=== PATIENT | female | born 1995 | race Caucasian/White ===

== ENCOUNTER 2018-08-17 23:17 | Observation (INO) | payer BC ==
[2018-08-17] MEDS ORDERED: Pantoprazole 40 MG Vial IVPUSH ONE (23:30)
[2018-08-17] MEDS ORDERED: Ketorolac 30 MG/ML SDV IVPUSH ONE (23:30)
[2018-08-17] MEDS ORDERED: Sodium Chloride 0.9% 1,000 ML IV ONE (23:30)
[2018-08-17] MEDS ORDERED: Ondansetron 4 MG/2 ML SDV IVPUSH ONE (23:30)
--- NOTE | 2018-08-17 23:33 | EDM.PDOC ---
ED HPI GENERAL MEDICAL PROBLEM - General Chief Complaint: Abdominal Pain Stated Complaint: ABD PAIN Time Seen by Provider: 08/17/18 23:26 - History of Present Illness INITIAL COMMENTS - FREE TEXT/NARRATIVE: HISTORY AND PHYSICAL: History of present illness: Patient is a 23-year-old female presents with concern of upper abdominal pain came on somewhat acutely tonight she had similar episodes in the past and has had now for definitive diagnosis to date she states her gallbladder was imaged prior and was reported to be negative she's had no vomiting she had mild nausea she denies urinary tract symptoms denies fever chills chest pain shortness of breath or other concerns been no trauma Review of systems: As per history of present illness and below otherwise all systems reviewed and negative. Past medical history: As per history of present illness and as reviewed below otherwise noncontributory. Surgical history: As per history of present illness and as reviewed below otherwise noncontributory. Social history: No reported history of drug or alcohol abuse. Family history: As per history of present illness and as reviewed below otherwise noncontributory. Physical exam: HEENT: Atraumatic, normocephalic, pupils reactive, negative for conjunctival pallor or scleral icterus, mucous membranes moist, throat clear, neck supple, nontender, trachea midline. Lungs: Clear to auscultation, breath sounds equal bilaterally, chest nontender. Heart: S1S2, regular, negative for clicks, rubs, or JVD. Abdomen: Soft, nondistended, no localized tenderness no rebound no guarding. Negative for masses or hepatosplenomegaly. Negative for costovertebral tenderness. Pelvis: Stable nontender. Genitourinary: Deferred. Rectal: Deferred. Extremities: Atraumatic, negative for cords or calf pain. Neurovascular unremarkable. Neuro: Awake, alert, oriented. Cranial nerves II through XII unremarkable. Cerebellum unremarkable. Motor and sensory unremarkable throughout. Exam nonfocal. Diagnostics: CBC CMP lipase UA hCG CT abdomen and pelvis Therapeutics: Saline 1 L bolus Protonix 80 mg IV Toradol 30 mg IV Zofran 4 mg IV Impression: #1 abdominal pain Definitive disposition and diagnosis as appropriate pending reevaluation and review of above. Abdominal Pain Score (Numeric/FACES): 9 - Related Data Allergies Allergy/AdvReac Type Severity Reaction Status Date / Time prochlorperazine Allergy Anxiety Verified 08/17/18 23:25 [From Compazine] Home Meds: Home Meds Levothyroxine [Synthroid] 100 mcg PO ACBREAKFAST 08/17/18 [History] ED ROS GENERAL - Review of Systems Review Of Systems: ROS reveals no pertinent complaints other than HPI. ED EXAM, GENERAL - Physical Exam Exam: See Below (See dictation) Course - Vital Signs Last Recorded V/S: Last Vital Signs Temp 36.8 C 08/17/18 23:26 Pulse 81 08/17/18 23:26 Resp 22 H 08/17/18 23:26 BP 137/90 08/17/18 23:26 Pulse Ox 99 08/17/18 23:26 - Orders/Labs/Meds Orders: Active Orders 24 hr Category Date Time Status Abdomen Pelvis wo Cont [CT] Stat Exams 08/17/18 23:30 Taken CULTURE URINE [RM] Stat Lab 08/17/18 23:49 Received Labs: Laboratory Tests 08/17/18 08/17/18 08/17/18 Range/Units 00:00 00:00 00:00 WBC 13.09 H (4.0-11.0) K/uL RBC 4.40 (4.30-5.90) M/uL Hgb 12.8 (12.0-16.0) g/dL Hct 37.7 (36.0-46.0) % MCV 85.7 (80.0-98.0) fL MCH 29.1 (27.0-32.0) pg MCHC 34.0 (31.0-37.0) g/dL RDW Std Deviation 42.3 (28.0-62.0) fl RDW Coeff of [place]oney 14 (11.0-15.0) % Plt Count 287 (150-400) K/uL MPV 10.50 (7.40-12.00) fL Neut % (Auto) 66.3 (48.0-80.0) % Lymph % (Auto) 26.0 (16.0-40.0) % [place] % (Auto) 6.7 (0.0-15.0) % Eos % (Auto) 0.8 (0.0-7.0) % Baso % (Auto) 0.2 (0.0-1.5) % Neut # (Auto) 8.7 H (1.4-5.7) K/uL Lymph # (Auto) 3.4 H (0.6-2.4) K/uL [place] # (Auto) 0.9 H (0.0-0.8) K/uL Eos # (Auto) 0.1 (0.0-0.7) K/uL Baso # (Auto) 0.0 (0.0-0.1) K/uL Nucleated RBC % 0.0 /100WBC Nucleated RBCs # 0 K/uL INR 0.96 Sodium (136-145) mmol/L Potassium (3.5-5.1) mmol/L Chloride (98-107) mmol/L Carbon Dioxide (21.0-32.0) mmol/L BUN (7.0-18.0) mg/dL Creatinine (0.6-1.0) mg/dL Est Cr Clr Drug Dosing mL/min Estimated GFR (MDRD) ml/min Glucose (74-106) mg/dL Calcium (8.5-10.1) mg/dL Total Bilirubin (0.2-1.0) mg/dL AST (15-37) IU/L ALT (14-63) IU/L Alkaline Phosphatase (46-116) U/L Total Protein (6.4-8.2) g/dL Albumin (3.4-5.0) g/dL Globulin (2.6-4.0) g/dL Albumin/Globulin Ratio (0.9-1.6) Amylase (25-115) U/L Lipase (73-393) U/L HCG, Qual NEGATIVE (NEG) Urine Color Urine Appearance Urine pH (5.0-8.0) Ur Specific [place] (1.001-1.035) Urine Protein (NEGATIVE) mg/dL Urine Glucose (UA) (NEGATIVE) mg/dL Urine Ketones (NEGATIVE) mg/dL Urine Occult Blood (NEGATIVE) Urine Nitrite (NEGATIVE) Urine Bilirubin (NEGATIVE) Urine Urobilinogen (<2.0) EU/dL Ur Leukocyte Esterase (NEGATIVE) Urine RBC (0-2/HPF) Urine WBC (0-5/HPF) Ur Epithelial Cells (NONE-FEW) Amorphous Sediment (NEGATIVE) Urine Bacteria (NEGATIVE) 08/17/18 08/17/18 Range/Units 23:29 23:49 WBC (4.0-11.0) K/uL RBC (4.30-5.90) M/uL Hgb (12.0-16.0) g/dL Hct (36.0-46.0) % MCV (80.0-98.0) fL MCH (27.0-32.0) pg MCHC (31.0-37.0) g/dL RDW Std Deviation (28.0-62.0) fl RDW Coeff of [place] (11.0-15.0) % Plt Count (150-400) K/uL MPV (7.40-12.00) fL Neut % (Auto) (48.0-80.0) % Lymph % (Auto) (16.0-40.0) % Ellis % (Auto) (0.0-15.0) % Eos % (Auto) (0.0-7.0) % Baso % (Auto) (0.0-1.5) % Neut # (Auto) (1.4-5.7) K/uL Lymph # (Auto) (0.6-2.4) K/uL Ellis # (Auto) (0.0-0.8) K/uL Eos # (Auto) (0.0-0.7) K/uL Baso # (Auto) (0.0-0.1) K/uL Nucleated RBC % /100WBC Nucleated RBCs # K/uL INR Sodium 140 (136-145) mmol/L Potassium 3.8 (3.5-5.1) mmol/L Chloride 104 (98-107) mmol/L Carbon Dioxide 27.5 (21.0-32.0) mmol/L BUN 13 (7.0-18.0) mg/dL Creatinine 0.7 (0.6-1.0) mg/dL Est Cr Clr Drug Dosing 98.86 mL/min Estimated GFR (MDRD) > 60.0 ml/min Glucose 99 (74-106) mg/dL Calcium 9.4 (8.5-10.1) mg/dL Total Bilirubin 0.2 (0.2-1.0) mg/dL AST 16 (15-37) IU/L ALT 23 (14-63) IU/L Alkaline Phosphatase 111 (46-116) U/L Total Protein 7.7 (6.4-8.2) g/dL Albumin 3.6 (3.4-5.0) g/dL Globulin 4.1 H (2.6-4.0) g/dL Albumin/Globulin Ratio 0.9 (0.9-1.6) Amylase 42 (25-115) U/L Lipase 85 (73-393) U/L HCG, Qual (NEG) Urine Color YELLOW Urine Appearance SLT CLOUDY Urine pH 6.5 (5.0-8.0) Ur Specific [place] 1.020 (1.001-1.035) Urine Protein NEGATIVE (NEGATIVE) mg/dL Urine Glucose (UA) NEGATIVE (NEGATIVE) mg/dL Urine Ketones NEGATIVE (NEGATIVE) mg/dL Urine Occult Blood NEGATIVE (NEGATIVE) Urine Nitrite NEGATIVE (NEGATIVE) Urine Bilirubin NEGATIVE (NEGATIVE) Urine Urobilinogen 0.2 (<2.0) EU/dL Ur Leukocyte Esterase SMALL H (NEGATIVE) Urine RBC 0-2 (0-2/HPF) Urine WBC 9-12 (0-5/HPF) Ur Epithelial Cells MODERATE (NONE-FEW) Amorphous Sediment HEAVY (NEGATIVE) Urine Bacteria FEW (NEGATIVE) Meds: Medications Discontinued Medications Generic Name Dose Route Start Last Admin Trade Name Gavinq PRN Reason Stop Dose Admin Sodium Chloride 1,000 mls @ 999 mls/hr 08/17/18 23:30 08/17/18 23:52 Normal Saline IV 08/18/18 00:30 999 mls/hr STAT ONE Administration Sodium Chloride Confirm 08/17/18 23:39 08/17/18 23:56 Normal Saline Administered 08/17/18 23:40 20 mls/hr Dose Administration 20 mls @ as directed .ROUTE .STK-MED ONE Ketorolac Tromethamine 30 mg 08/17/18 23:30 08/18/18 00:53 Toradol IVPUSH 08/17/18 23:31 30 mg ONETIME ONE Administration Ondansetron HCl 4 mg 08/17/18 23:30 08/17/18 23:52 Zofran IVPUSH 08/17/18 23:31 4 mg ONETIME ONE Administration Pantoprazole Sodium 80 mg 08/17/18 23:30 08/17/18 23:54 Protonix Iv IVPUSH 08/17/18 23:31 80 mg .BOLUS ONE Administration Departure - Departure Time of Disposition: 01:04 Disposition: Home, Self-Care 01 Clinical Impression: Abdominal pain, UTI (urinary tract infection) - Discharge Information Referrals: PCP,None [Primary Care Provider] - Forms: ED Department Discharge Additional Instructions: The following information is given to patients seen in the emergency department who are being discharged to home. This information is to outline your options for follow-up care. We provide all patients seen in our emergency department with a follow-up referral. The need for follow-up, as well as the timing and circumstances, are variable depending upon the specifics of your emergency department visit. If you don't have a primary care physician on staff, we will provide you with a referral. We always advise you to contact your personal physician following an emergency department visit to inform them of the circumstance of the visit and for follow-up with them and/or the need for any referrals to a consulting specialist. The emergency department will also refer you to a specialist when appropriate. This referral assures that you have the opportunity for followup care with a specialist. All of these measure are taken in an effort to provide you with optimal care, which includes your followup. Under all circumstances we always encourage you to contact your private physician who remains a resource for coordinating your care. When calling for followup care, please make the office aware that this follow-up is from your recent emergency room visit. If for any reason you are refused follow-up, please contact the [facility] emergency department at and asked to speak to the emergency department charge nurse. Cipro as prescribed push fluids clear liquids 24 hours follow private medical doctor return as needed as discussed[] - My Orders Last 24 Hours: My Active Orders 08/17/18 23:30 Abdomen Pelvis wo Cont [CT] Stat 08/17/18 23:49 CULTURE URINE [RM] Stat - Assessment/Plan Last 24 Hours: My Active Orders 08/17/18 23:30 Abdomen Pelvis wo Cont [CT] Stat 08/17/18 23:49 CULTURE URINE [RM] Stat
[2018-08-17] MEDS ORDERED: Sodium Chloride 0.9% 20 ML ONE (23:39)
[2018-08-18 00:35] LABS: CHLORIDE,CL 104 mmol/L (98-107); SODIUM,NA 140 mmol/L (136-145)
--- NOTE | 2018-08-18 01:11 | CT ---
INDICATION: Abdominal pain TECHNIQUE: CT abdomen and pelvis without contrast. COMPARISON: None. FINDINGS: Lower chest: Unremarkable. Liver: Normal in size and attenuation. No masses. Gallbladder and bile ducts: No stones or inflammation. No biliary dilatation. Pancreas: Unremarkable. No mass or inflammation. Spleen: Normal in size. No masses. Adrenal glands: Normal in size. No nodules. Kidneys: Normal in size. No masses, stones, or hydronephrosis. GI tract: Unremarkable. Normal in caliber. No sign of mass or inflammation. The appendix is mildly dilated measuring up to 8 mm. Minimal periappendiceal inflammation may also be present. Vasculature: Unremarkable. Lymph nodes: No lymphadenopathy. Abdominal wall/Omentum/Peritoneum: Unremarkable. No sign of mass or infiltration. No free air or significant free fluid. Pelvis: Unremarkable. No pelvic masses. Bones: Unremarkable for age. IMPRESSION: Suspected mild acute or early appendicitis without complication. No other finding to explain abdominal pain. Please note that all CT scans at this facility use dose modulation, iterative reconstruction, and/or weight-based dosing when appropriate to reduce radiation dose to as low as reasonably achievable. Dictated by Hany Jules MD @ Aug 18 2018 12:58AM Signed by Dr. Hany Jules @ Aug 18 2018 1:10AM
[2018-08-18] MEDS ORDERED: cefTRIAXone 1 GM in Premix Bag 1 BAG IV ONE (01:46)
[2018-08-18] MEDS ORDERED: Piperacillin/Tazobactam 3.375 GM in Sodium Chloride 0.9% 50 ML IV ONE (01:50)
[2018-08-18] MEDS ORDERED: Sodium Chloride 0.9% 1,000 ML IV SCH (02:00)
[2018-08-18] MEDS ORDERED: Ondansetron 4 MG/2 ML SDV IVPUSH PRN (02:19)
[2018-08-18] MEDS: Lactated Ringers 1,000 ML IV SCH ×3 (02:30→19:53)
[2018-08-18] MEDS: HYDROmorphone 1 MG/ML Syringe IVPUSH PRN ×4 (02:50→12:19)
[2018-08-18] MEDS ORDERED: Piperacillin/Tazobactam 3.375 GM in Sodium Chloride 0.9% 50 ML IV SCH ×2 (10:00→17:00)
[2018-08-18] MEDS ORDERED: Bupivacaine 0.5% 30 ML SDV ONE (14:34)
--- NOTE | 2018-08-18 14:44 | PCM.HP ---
H&P History of Present Illness - General Date of Service: 08/18/18 Admit Problem/Dx: Admission Diagnosis/Problem Admission Diagnosis/Problem Abdominal pain Source of Information: Patient History Limitations: Reports: No Limitations - History of Present Illness Initial Comments - Free Text/Narative: Patient is a 23 year old female who presented to the ER early this morning with upper abdominal pain. She states the pain started last evening and persistently got worse. She has had similar episodes of some abdominal pain in the past but work up has been negative. This pain did not improve over time. It was associated with mild nausea. Denies fever, chills, shortness or breath or chest pain. She denies dysuria or frequency. Her UA showed a small amount of leukocyte esterase. Her WBC was minimally elevated at 13K. CT abdomen pelvis showed a minimally dilated appendix with possible surrounding infiltrate. When I saw the patient, she was complaining of some malaise and still some upper abominal pain. Her abdominal exam was fairly benign with no tenderness in the RLQ. After discussion the options, we decided to admit her to the floor. She would be NPO, IVF with IV zosyn. I came to check on the patient several hours later and she still is complaining or malaise, but now the abdominal pain is back with increased pain in the RLQ. A repeat CBC showed a WBC of 10K but with an increased neutrophil %. Abdominal Pain Score (Numeric/FACES): 8 - Related Data Allergies/Adverse Reactions: Allergies Allergy/AdvReac Type Severity Reaction Status Date / Time prochlorperazine Allergy Anxiety Verified 08/17/18 23:25 [From Compazine] Home Medications: Home Meds Levothyroxine [Synthroid] 100 mcg PO ACBREAKFAST 08/17/18 [History] Past Medical History HEENT History: Reports: Impaired Vision, Other (See Below) Other HEENT History: Wears glasses. Cardiovascular History: Reports: None Respiratory History: Reports: None Gastrointestinal History: Reports: None Genitourinary History: Reports: None BASKETBALL PLAYER History: Reports: None Musculoskeletal History: Reports: None Neurological History: Reports: None Psychiatric History: Reports: None Endocrine/Metabolic History: Reports: Hypothyroidism Hematologic History: Reports: None Immunologic History: Reports: None Oncologic (Cancer) History: Reports: None Dermatologic History: Reports: None - Infectious Disease History Infectious Disease History: Reports: Chicken Pox - Past Surgical History Head Surgeries/Procedures: Reports: None HEENT Surgical History: Reports: Tonsillectomy Cardiovascular Surgical History: Reports: None Endocrine Surgical History: Reports: None Social & Family History - Family History Family Medical History: Noncontributory - Tobacco Use Smoking Status *Q: Never Smoker Second Hand Smoke Exposure: No - Caffeine Use Caffeine Use: Reports: Coffee, Soda - Recreational Drug Use Recreational Drug Use: No H&P Review of Systems - Review of Systems: Review Of Systems: ROS reveals no pertinent complaints other than HPI. Exam - Exam Exam: See Below - Vital Signs Vital Signs: Last Vital Signs Temp 36.4 C 08/18/18 11:08 Pulse 68 08/18/18 11:08 Resp 16 08/18/18 11:08 BP 107/56 L 08/18/18 11:08 Pulse Ox 98 08/18/18 11:08 Weight: 102.512 kg - Exam General: Alert, Oriented, Mild Distress HEENT: Conjunctiva Clear, Mucosa Moist & [place], Posterior Pharynx Clear Neck: Trachea Midline Lungs: Clear to Auscultation, Normal Respiratory Effort Cardiovascular: Regular Rate, Regular Rhythm GI/Abdominal Exam: Soft, No Distention, No Mass, Guarding (RLQ), Tender (RLQ) - Patient Data Lab Results Last 24 hrs: Laboratory Results - last 24 hr 08/17/18 08/17/18 08/17/18 Range/Units 00:00 00:00 00:00 WBC 13.09 H (4.0-11.0) K/uL RBC 4.40 (4.30-5.90) M/uL Hgb 12.8 (12.0-16.0) g/dL Hct 37.7 (36.0-46.0) % MCV 85.7 (80.0-98.0) fL MCH 29.1 (27.0-32.0) pg MCHC 34.0 (31.0-37.0) g/dL RDW Std Deviation 42.3 (28.0-62.0) fl RDW Coeff of Roney 14 (11.0-15.0) % Plt Count 287 (150-400) K/uL MPV 10.50 (7.40-12.00) fL Neut % (Auto) 66.3 (48.0-80.0) % Lymph % (Auto) 26.0 (16.0-40.0) % [place] % (Auto) 6.7 (0.0-15.0) % Eos % (Auto) 0.8 (0.0-7.0) % Baso % (Auto) 0.2 (0.0-1.5) % Neut # (Auto) 8.7 H (1.4-5.7) K/uL Lymph # (Auto) 3.4 H (0.6-2.4) K/uL [place] # (Auto) 0.9 H (0.0-0.8) K/uL Eos # (Auto) 0.1 (0.0-0.7) K/uL Baso # (Auto) 0.0 (0.0-0.1) K/uL Nucleated RBC % 0.0 /100WBC Nucleated RBCs # 0 K/uL INR 0.96 Sodium (136-145) mmol/L Potassium (3.5-5.1) mmol/L Chloride (98-107) mmol/L Carbon Dioxide (21.0-32.0) mmol/L BUN (7.0-18.0) mg/dL Creatinine (0.6-1.0) mg/dL Est Cr Clr Drug Dosing mL/min Estimated GFR (MDRD) ml/min Glucose (74-106) mg/dL Calcium (8.5-10.1) mg/dL Total Bilirubin (0.2-1.0) mg/dL AST (15-37) IU/L ALT (14-63) IU/L Alkaline Phosphatase (46-116) U/L Total Protein (6.4-8.2) g/dL Albumin (3.4-5.0) g/dL Globulin (2.6-4.0) g/dL Albumin/Globulin Ratio (0.9-1.6) Amylase (25-115) U/L Lipase (73-393) U/L HCG, Qual NEGATIVE (NEG) Urine Color Urine Appearance Urine pH (5.0-8.0) Ur Specific [place] (1.001-1.035) Urine Protein (NEGATIVE) mg/dL Urine Glucose (UA) (NEGATIVE) mg/dL Urine Ketones (NEGATIVE) mg/dL Urine Occult Blood (NEGATIVE) Urine Nitrite (NEGATIVE) Urine Bilirubin (NEGATIVE) Urine Urobilinogen (<2.0) EU/dL Ur Leukocyte Esterase (NEGATIVE) Urine RBC (0-2/HPF) Urine WBC (0-5/HPF) Ur Epithelial Cells (NONE-FEW) Amorphous Sediment (NEGATIVE) Urine Bacteria (NEGATIVE) 08/17/18 08/17/18 08/18/18 Range/Units 23:29 23:49 08:16 WBC 10.49 (4.0-11.0) K/uL RBC 3.96 L (4.30-5.90) M/uL Hgb 11.1 L (12.0-16.0) g/dL Hct 33.9 L (36.0-46.0) % MCV 85.6 (80.0-98.0) fL MCH 28.0 (27.0-32.0) pg MCHC 32.7 (31.0-37.0) g/dL RDW Std Deviation 42.2 (28.0-62.0) fl RDW Coeff of Roney 14 (11.0-15.0) % Plt Count 252 (150-400) K/uL MPV 10.40 (7.40-12.00) fL Neut % (Auto) 69.1 (48.0-80.0) % Lymph % (Auto) 24.0 (16.0-40.0) % [place] % (Auto) 6.3 (0.0-15.0) % Eos % (Auto) 0.5 (0.0-7.0) % Baso % (Auto) 0.1 (0.0-1.5) % Neut # (Auto) 7.3 H (1.4-5.7) K/uL Lymph # (Auto) 2.5 H (0.6-2.4) K/uL [place] # (Auto) 0.7 (0.0-0.8) K/uL Eos # (Auto) 0.1 (0.0-0.7) K/uL Baso # (Auto) 0.0 (0.0-0.1) K/uL Nucleated RBC % 0.0 /100WBC Nucleated RBCs # 0 K/uL INR Sodium 140 (136-145) mmol/L Potassium 3.8 (3.5-5.1) mmol/L Chloride 104 (98-107) mmol/L Carbon Dioxide 27.5 (21.0-32.0) mmol/L BUN 13 (7.0-18.0) mg/dL Creatinine 0.7 (0.6-1.0) mg/dL Est Cr Clr Drug Dosing 98.86 mL/min Estimated GFR (MDRD) > 60.0 ml/min Glucose 99 (74-106) mg/dL Calcium 9.4 (8.5-10.1) mg/dL Total Bilirubin 0.2 (0.2-1.0) mg/dL AST 16 (15-37) IU/L ALT 23 (14-63) IU/L Alkaline Phosphatase 111 (46-116) U/L Total Protein 7.7 (6.4-8.2) g/dL Albumin 3.6 (3.4-5.0) g/dL Globulin 4.1 H (2.6-4.0) g/dL Albumin/Globulin Ratio 0.9 (0.9-1.6) Amylase 42 (25-115) U/L Lipase 85 (73-393) U/L HCG, Qual (NEG) Urine Color YELLOW Urine Appearance SLT CLOUDY Urine pH 6.5 (5.0-8.0) Ur Specific [place] 1.020 (1.001-1.035) Urine Protein NEGATIVE (NEGATIVE) mg/dL Urine Glucose (UA) NEGATIVE (NEGATIVE) mg/dL Urine Ketones NEGATIVE (NEGATIVE) mg/dL Urine Occult Blood NEGATIVE (NEGATIVE) Urine Nitrite NEGATIVE (NEGATIVE) Urine Bilirubin NEGATIVE (NEGATIVE) Urine Urobilinogen 0.2 (<2.0) EU/dL Ur Leukocyte Esterase SMALL H (NEGATIVE) Urine RBC 0-2 (0-2/HPF) Urine WBC 9-12 (0-5/HPF) Ur Epithelial Cells MODERATE (NONE-FEW) Amorphous Sediment HEAVY (NEGATIVE) Urine Bacteria FEW (NEGATIVE) Result Diagrams: 08/18/18 08:16 08/17/18 23:29 - Problem List (1) Appendicitis SNOMED Code(s): 16691205 ICD Code: K37 - UNSPECIFIED APPENDICITIS Status: Acute Current Visit: Yes (2) Abdominal pain SNOMED Code(s): 41513212 ICD Code: R10.9 - UNSPECIFIED ABDOMINAL PAIN Status: Acute Current Visit : Yes (3) UTI (urinary tract infection) SNOMED Code(s): 64392545 ICD Code: N39.0 - URINARY TRACT INFECTION, SITE NOT SPECIFIED Status: Acute Current Visit: Yes Problem List Initiated/Reviewed/Updated: Yes Orders Last 24hrs: Active Orders 24 hr Category Date Time Status Patient Status [ADT] Stat ADT 08/18/18 01:51 Active NPO Now [Nothing per Oral Now Diet] [DIET] Diet 08/18/18 Breakfast Active CULTURE URINE [RM] Stat Lab 08/17/18 23:49 Received HYDROmorphone [Dilaudid] Med 08/18/18 02:19 Active 0.5 mg IVPUSH Q1H PRN Lactated Ringers [Ringers, Lactated] 1,000 ml Med 08/18/18 02:30 Active IV ASDIRECTED Ondansetron [Zofran] Med 08/18/18 02:19 Active 4 mg IVPUSH Q6H PRN Piperacillin/Tazobactam [Piperacil-Tazobact] 3.375 gm Med 08/18/18 17:00 Active Sodium Chloride 0.9% [Normal Saline] 50 ml IV Q6H Medication Orders Hydromorphone HCl (Dilaudid) 0.5 mg IVPUSH Q1H PRN PRN Reason: Pain (severe 7-10) Last Admin: 08/18/18 12:19 Dose: 0.5 mg Admin: 08/18/18 09:32 Dose: 0.5 mg Admin: 08/18/18 07:00 Dose: 0.5 mg Admin: 08/18/18 02:50 Dose: 0.5 mg Lactated Ringer's (Ringers, Lactated) 1,000 mls @ 125 mls/hr IV ASDIRECTED JETT Last Admin: 08/18/18 10:55 Dose: 125 mls/hr Infusion: 08/18/18 10:30 Dose: 125 mls/hr Admin: 08/18/18 02:30 Dose: 125 mls/hr Piperacillin Sod/Tazobactam (Sod 3.375 gm/ Sodium Chloride) 50 mls @ 100 mls/ hr IV Q6H JETT Ondansetron HCl (Zofran) 4 mg IVPUSH Q6H PRN PRN Reason: Nausea/Vomiting Assessment/Plan Comment:: Given the patient's ongoing discomfort, malaise and now RLQ pain with palpation despite IV antibiotics, I feel she has appendicitis. We discussed the need for a laparoscopic possible open appendectomy. I will attempt to take her appendix out laparoscopically but should i be unable to do so safely I will convert to open. We discussed the expected perioperative course and risks including bleeding, infection, or damage to surrounding structures. The patient verbalized understanding and wishes to proceed.
[2018-08-18] MEDS ORDERED: Glycopyrrolate 0.2 MG/ML SDV ONE (14:50)
[2018-08-18] MEDS ORDERED: Midazolam 1 MG/ML 2 ML SDV ONE (14:50)
[2018-08-18] MEDS ORDERED: Propofol 200 MG/20 ML SDV ONE (14:50)
[2018-08-18] MEDS ORDERED: fentaNYL 100 MCG/2 ML SDV ONE ×2 (14:50→14:55)
[2018-08-18] MEDS ORDERED: Ondansetron 4 MG/2 ML SDV ONE (14:50)
--- NOTE | 2018-08-18 14:50 | PCM.PREANE ---
Preanesthetic Assessment - Anesthesia/Transfusion/Family Hx Anesthesia History: Prior Anesthesia Without Reaction Family History of Anesthesia Reaction: No Transfusion History: No Prior Transfusion(s) Intubation History: Unknown - Review of Systems General: No Symptoms Pulmonary: No Symptoms Cardiovascular: No Symptoms Gastrointestinal: Abdominal Pain Neurological: No Symptoms Other: Reports: None - Physical Assessment O2 Sat by Pulse Oximetry: 98 Respiratory Rate: 16 Vital Signs: Last Vital Signs Temp 36.4 C 08/18/18 11:08 Pulse 68 08/18/18 11:08 Resp 16 08/18/18 11:08 BP 107/56 L 08/18/18 11:08 Pulse Ox 98 08/18/18 11:08 Height: 1.57 m Weight: 102.512 kg ASA Class: 2E Mental Status: Alert & Oriented x3 Airway Class: Mallampati = 2 Dentition: Reports: Normal Dentition Thyro-Mental Finger Breadths: 3 Mouth Opening Finger Breadths: 3 ROM/Head Extension: Full Lungs: Clear to Auscultation, Normal Respiratory Effort Cardiovascular: Regular Rate, Regular Rhythm - Lab Values: Laboratory Last Values WBC 10.49 K/uL (4.0-11.0) 08/18/18 08:16 RBC 3.96 M/uL (4.30-5.90) L 08/18/18 08:16 Hgb 11.1 g/dL (12.0-16.0) L 08/18/18 08:16 Hct 33.9 % (36.0-46.0) L 08/18/18 08:16 MCV 85.6 fL (80.0-98.0) 08/18/18 08:16 MCH 28.0 pg (27.0-32.0) 08/18/18 08:16 MCHC 32.7 g/dL (31.0-37.0) 08/18/18 08:16 RDW Std Deviation 42.2 fl (28.0-62.0) 08/18/18 08:16 RDW Coeff of Roney 14 % (11.0-15.0) 08/18/18 08:16 Plt Count 252 K/uL (150-400) 08/18/18 08:16 MPV 10.40 fL (7.40-12.00) 08/18/18 08:16 Neut % (Auto) 69.1 % (48.0-80.0) 08/18/18 08:16 Lymph % (Auto) 24.0 % (16.0-40.0) 08/18/18 08:16 Florence % (Auto) 6.3 % (0.0-15.0) 08/18/18 08:16 Eos % (Auto) 0.5 % (0.0-7.0) 08/18/18 08:16 Baso % (Auto) 0.1 % (0.0-1.5) 08/18/18 08:16 Neut # (Auto) 7.3 K/uL (1.4-5.7) H 08/18/18 08:16 Lymph # (Auto) 2.5 K/uL (0.6-2.4) H 08/18/18 08:16 Florence # (Auto) 0.7 K/uL (0.0-0.8) 08/18/18 08:16 Eos # (Auto) 0.1 K/uL (0.0-0.7) 08/18/18 08:16 Baso # (Auto) 0.0 K/uL (0.0-0.1) 08/18/18 08:16 Nucleated RBC % 0.0 /100WBC 08/18/18 08:16 Nucleated RBCs # 0 K/uL 08/18/18 08:16 INR 0.96 08/17/18 00:00 Sodium 140 mmol/L (136-145) 08/17/18 23:29 Potassium 3.8 mmol/L (3.5-5.1) 08/17/18 23:29 Chloride 104 mmol/L (98-107) 08/17/18 23:29 Carbon Dioxide 27.5 mmol/L (21.0-32.0) 08/17/18 23:29 BUN 13 mg/dL (7.0-18.0) 08/17/18 23:29 Creatinine 0.7 mg/dL (0.6-1.0) 08/17/18 23:29 Est Cr Clr Drug Dosing 98.86 mL/min 08/17/18 23:29 Estimated GFR (MDRD) > 60.0 ml/min 08/17/18 23:29 Glucose 99 mg/dL (74-106) 08/17/18 23:29 Calcium 9.4 mg/dL (8.5-10.1) 08/17/18 23:29 Total Bilirubin 0.2 mg/dL (0.2-1.0) 08/17/18 23:29 AST 16 IU/L (15-37) 08/17/18 23:29 ALT 23 IU/L (14-63) 08/17/18 23:29 Alkaline Phosphatase 111 U/L (46-116) 08/17/18 23:29 Total Protein 7.7 g/dL (6.4-8.2) 08/17/18 23:29 Albumin 3.6 g/dL (3.4-5.0) 08/17/18 23:29 Globulin 4.1 g/dL (2.6-4.0) H 08/17/18 23:29 Albumin/Globulin Ratio 0.9 (0.9-1.6) 08/17/18 23:29 Amylase 42 U/L (25-115) 08/17/18 23:29 Lipase 85 U/L (73-393) 08/17/18 23:29 HCG, Qual NEGATIVE (NEG) 08/17/18 00:00 Urine Color YELLOW 08/17/18 23:49 Urine Appearance SLT CLOUDY 08/17/18 23:49 Urine pH 6.5 (5.0-8.0) 08/17/18 23:49 Ur Specific [place] 1.020 (1.001-1.035) 08/17/18 23:49 Urine Protein NEGATIVE mg/dL (NEGATIVE) 08/17/18 23:49 Urine Glucose (UA) NEGATIVE mg/dL (NEGATIVE) 08/17/18 23:49 Urine Ketones NEGATIVE mg/dL (NEGATIVE) 08/17/18 23:49 Urine Occult Blood NEGATIVE (NEGATIVE) 08/17/18 23:49 Urine Nitrite NEGATIVE (NEGATIVE) 08/17/18 23:49 Urine Bilirubin NEGATIVE (NEGATIVE) 08/17/18 23:49 Urine Urobilinogen 0.2 EU/dL (<2.0) 08/17/18 23:49 Ur Leukocyte Esterase SMALL (NEGATIVE) H 08/17/18 23:49 Urine RBC 0-2 (0-2/HPF) 08/17/18 23:49 Urine WBC 9-12 (0-5/HPF) 08/17/18 23:49 Ur Epithelial Cells MODERATE (NONE-FEW) 08/17/18 23:49 Amorphous Sediment HEAVY (NEGATIVE) 08/17/18 23:49 Urine Bacteria FEW (NEGATIVE) 08/17/18 23:49 - Allergies Allergies/Adverse Reactions: Allergies Allergy/AdvReac Type Severity Reaction Status Date / Time prochlorperazine Allergy Anxiety Verified 08/17/18 23:25 [From Compazine] - Blood Blood Available: No - Anesthesia Plan Pre-Op Medication Ordered: None - Acknowledgements Anesthesia Type Planned: General Anesthesia Pt an Appropriate Candidate for the Planned Anesthesia: Yes Alternatives and Risks of Anesthesia Discussed w Pt/Guardian: Yes Pt/Guardian Understands and Agrees with Anesthesia Plan: Yes PreAnesthesia Questionnaire HEENT History: Reports: Impaired Vision, Other (See Below) Other HEENT History: Wears glasses. 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 , on replacement therapy), Obesity/BMI 30+ Hematologic History: Reports: None Immunologic History: Reports: None Oncologic (Cancer) History: Reports: None Dermatologic History: Reports: None - Infectious Disease History Infectious Disease History: Reports: Chicken Pox - Past Surgical History Head Surgeries/Procedures: Reports: None HEENT Surgical History: Reports: Adenoidectomy, Tonsillectomy, Other (See Below ) (removal of earing from her nose) Cardiovascular Surgical History: Reports: None Endocrine Surgical History: Reports: None - SUBSTANCE USE Smoking Status *Q: Never Smoker Tobacco Use Within Last Twelve Months: No Second Hand Smoke Exposure: No Recreational Drug Use History: No - HOME MEDS Home Medications: Home Meds Levothyroxine [Synthroid] 100 mcg PO ACBREAKFAST 08/17/18 [History] - CURRENT (IN HOUSE) MEDS Current Meds: Current Medications Hydromorphone HCl (Dilaudid) 0.5 mg IVPUSH Q1H PRN PRN Reason: Pain (severe 7-10) Last Admin: 08/18/18 12:19 Dose: 0.5 mg Lactated Ringer's (Ringers, Lactated) 1,000 mls @ 125 mls/hr IV ASDIRECTED [facility] Last Admin: 08/18/18 10:55 Dose: 125 mls/hr Piperacillin Sod/Tazobactam (Sod 3.375 gm/ Sodium Chloride) 50 mls @ 100 mls/ hr IV Q6H [facility] Ondansetron HCl (Zofran) 4 mg IVPUSH Q6H PRN PRN Reason: Nausea/Vomiting Discontinued Medications Sodium Chloride (Normal Saline) 1,000 mls @ 999 mls/hr IV STAT ONE Stop: 08/18/18 00:30 Last Admin: 08/17/18 23:52 Dose: 999 mls/hr Sodium Chloride (Normal Saline) Confirm Administered Dose 20 mls @ as directed .ROUTE .STK-MED ONE Stop: 08/17/18 23:40 Last Admin: 08/17/18 23:56 Dose: 20 mls/hr Ceftriaxone Sodium/Dextrose 1 (gm/ Premix) 50 mls @ 100 mls/hr IV ONETIME ONE Stop: 08/18/18 02:15 Last Admin: 08/18/18 02:04 Dose: Not Given Piperacillin Sod/Tazobactam (Sod 3.375 gm/ Sodium Chloride) 50 mls @ 100 mls/ hr IV ONETIME ONE Stop: 08/18/18 02:19 Last Admin: 08/18/18 01:59 Dose: 100 mls/hr Sodium Chloride (Normal Saline) 1,000 mls @ 125 mls/hr IV ASDIRECTED [facility] Last Admin: 08/18/18 01:58 Dose: 125 mls/hr Piperacillin Sod/Tazobactam (Sod 3.375 gm/ Sodium Chloride) 50 mls @ 100 mls/ hr IV Q8H [facility] Last Admin: 08/18/18 10:52 Dose: 100 mls/hr Ketorolac Tromethamine (Toradol) 30 mg IVPUSH ONETIME ONE Stop: 08/17/18 23:31 Last Admin: 08/18/18 00:53 Dose: 30 mg Ondansetron HCl (Zofran) 4 mg IVPUSH ONETIME ONE Stop: 08/17/18 23:31 Last Admin: 08/17/18 23:52 Dose: 4 mg Pantoprazole Sodium (Protonix Iv) 80 mg IVPUSH .BOLUS ONE Stop: 08/17/18 23:31 Last Admin: 08/17/18 23:54 Dose: 80 mg
[2018-08-18] MEDS ORDERED: Sugammadex Sodium 200 MG/2 ML VIAL ONE (14:58)
[2018-08-18] MEDS ORDERED: Morphine 10 MG/ML Syringe ONE (15:16)
--- NOTE | 2018-08-18 16:17 | PCM.OPNOTE ---
- General Post-Op/Procedure Note Date of Surgery/Procedure: 08/18/18 Operative Procedure(s): laparoscopic appendectomy Findings: Mildly dilated appendix. Intraabdominal pelvic fluid noted with possible left ovarian cyst. Pre Op Diagnosis: appendicitis Post-Op Diagnosis: appendicitis Anesthesia Technique: General ET Tube Primary Surgeon: Laura Ingram Secondary Surgeon: Dodie Osullivan Fluid Replacement, Intraop: 1,400 Output, Urine Amount: 500 EBL in mLs: 5 Condition: Fair Free Text/Narrative:: Intake & Output 08/18/18 08/18/18 08/18/18 06:59 14:59 22:59 Intake Total 0 Output Total 0 Balance 0
[2018-08-18] MEDS ORDERED: HYDROmorphone 2 MG/ML Syringe IVPUSH ONE (16:42)
[2018-08-18] MEDS ORDERED: fentaNYL 100 MCG/2 ML SDV IVPUSH PRN (16:42)
[2018-08-18] MEDS ORDERED: Acetaminophen/HYDROcodone 325-5 MG Tab PO PRN (16:47)
--- NOTE | 2018-08-18 17:02 | PCM.POSTAN ---
POST ANESTHESIA ASSESSMENT - MENTAL STATUS Mental Status: Alert, Oriented - RESPIRATORY Respiratory Status: Respiratory Rate WNL, Airway Patent, O2 Saturation Stable - CARDIOVASCULAR CV Status: Pulse Rate WNL, Blood Pressure Stable - GASTROINTESTINAL GI Status: No Symptoms - PAIN Pain Score: 5 - POST OP HYDRATION Hydration Status: Adequate & Stable - OBSERVATIONS Free Text/Narrative:: no anesthesia problems
[2018-08-18] MEDS: Levothyroxine 100 MCG Tab PO SCH (18:04)
--- NOTE | 2018-08-18 18:14 | OR ---
SURGEON: SUSANA ROTH MD DATE OF PROCEDURE: 08/18/2018 PREOPERATIVE DIAGNOSIS: Appendicitis. POSTOPERATIVE DIAGNOSIS: Appendicitis. PROCEDURE PERFORMED: Laparoscopic appendectomy. RANCH MANAGER: NATALY Salguero student. ANESTHESIA: General endotracheal anesthesia. FLUIDS: 1400 mL. URINE OUTPUT: 500 mL. ESTIMATED BLOOD LOSS: 5 mL. FINDINGS: Enlarged appendix with no evidence of severe inflammation or perforation, 2 to 3 cm fluid-filled simple cyst on the left ovary. COMPLICATIONS: None. INDICATIONS: The patient is a 23-year-old female who presents with one-day history of abdominal pain. A CT scan of the abdomen and pelvis showed a mildly dilated appendix with no signs of inflammatory stranding. She had a UA that was positive. Her white blood cell count was 13,000. She was admitted to the hospital under my care. After n.p.o., give her IV fluids and IV antibiotics. This afternoon, her abdominal pain has become more centered in the right lower quadrant and she continues to feel unwell. A decision was made to proceed with an appendectomy. I explained the procedure. I explained the risks including bleeding, infection, damage to surrounding structures. The patient verbalized understanding and wishes to proceed. PROCEDURE IN DETAIL: The patient was brought into the OR, placed on the OR table in supine position. A time-out was completed verifying the patient's name, age, date of , allergies, and procedure to be performed. General endotracheal anesthesia was induced. The left arm was tucked to the patient's side. A Domínguez catheter was placed. The abdomen was prepped and draped in usual standard fashion. I anesthetized an area 2 fingerbreadths below the left subcostal margin in the midclavicular line with 0.5% Marcaine plain. An 11 blade was used to make a small incision in the skin. A 5 mm optical trocar was used to gain entry into the abdomen under direct visualization. All layers of the abdominal wall were visualized upon entry. The abdomen was insufflated and a 5 mm 30-degree scope was inserted. I inspected the area underneath my initial trocar placement. No damage to surrounding structures was noted. A 5 mm trocar was placed just lateral and left of the umbilicus under direct visualization. A 12 mm trocar was then placed under direct visualization in the left lower quadrant. Upon inspection of the abdomen, there was some free fluid in the pelvis. This was aspirated and sent for culture. I then turned my attention to the right lower quadrant. I immediately identified the cecum. I followed the tenia down to the base of the appendix. The appendix was then grasped and elevated. The distal end of the appendix appeared enlarged, but not severely inflamed. There was no evidence of perforation. A Harmonic scalpel was used to take down the appendiceal mesentery and distal to proximal fashion taking care not to injure any structures around the appendix. Once the appendiceal mesentery was taken down, an articulating endoscopic stapling device was placed in the abdomen. I then stapled and transected across the base of the appendix and inserted on the cecum using a 45-mm blue load of emeterio. The appendix was then placed in an EndoCatch bag and removed through the 12 mm port site. I replaced my 12 mm port and inspected my operative field. There was a small amount of oozing along the staple line. A small piece of Surgicel was placed in this area. I then inspected the rest of the abdomen. The gallbladder appeared normal. When I looked into the pelvis, I noted a fluid-filled structure on the left side of the pelvic wall. I elevated this and inspected it. It appeared to be attached to left ovary. I reviewed the preoperative imaging and saw a corresponding structure. It was not mentioned in the previous Radiology report, so I called the radiologist. He verified the appearance of a simple appearing cyst that appeared to be 2 to 3 cm in size. This corresponded with what I saw in the operating room. Several photographs of this were taken. I then reinspected my operative field. It appeared to be hemostatic. I closed my 12 mm trocar site using 0 Vicryl suture with a Osmar-Jennifer device. The other trocars were removed under direct visualization and the abdomen allowed to desufflate. The subcutaneous fat layer at 12 mm trocar site was closed with interrupted 3-0 Vicryl sutures. The skin was closed with running 4-0 Monocryl stitch. The 5 mm trocar sites were closed with interrupted 4-0 Monocryl. Steri-Strips and sterile dressings were applied. The patient tolerated the procedure well and was taken to PACU in stable condition. KRISTEL FIELDS /[id number]
[2018-08-18] MEDS: Ciprofloxacin 500 MG Tab PO SCH ×2 (20:46→22:26)
[2018-08-19] MEDS: HYDROmorphone 1 MG/ML Syringe IVPUSH PRN (01:57)
[2018-08-19] MEDS: Lactated Ringers 1,000 ML IV SCH (03:25)
[2018-08-19] MEDS: Levothyroxine 100 MCG Tab PO SCH (06:38)
[2018-08-19] MEDS ORDERED: Levothyroxine 100 MCG Tab PO SCH (07:30)
[2018-08-19] MEDS: Ciprofloxacin 500 MG Tab PO SCH (09:22)
--- NOTE | 2018-08-19 09:57 | PCM48HPAN ---
Post Anesthesia Note - EVALUATION WITHIN 48HRS OF ANESTHETIC Vital Signs in Normal Range: Yes Patient Participated in Evaluation: Yes Respiratory Function Stable: Yes Airway Patent: Yes Cardiovascular Function Stable: Yes Hydration Status Stable: Yes Pain Control Satisfactory: Yes Nausea and Vomiting Control Satisfactory: Yes Mental Status Recovered: Yes Resp Rate: 20
--- NOTE | 2018-08-19 10:19 | PCM.SURGPN ---
- General Info Date of Service: 08/19/18 Date of Surgery/Procedure: 08/18/18 POD#: 1 Functional Status: Reports: Pain Controlled, Tolerating Diet, Ambulating, Urinating - Review of Systems General: Reports: No Symptoms HEENT: Reports: No Symptoms Pulmonary: Reports: No Symptoms Cardiovascular: Reports: No Symptoms Gastrointestinal: Reports: No Symptoms - Patient Data Vitals - Most Recent: Last Vital Signs Temp 37.6 C 08/19/18 08:28 Pulse 83 08/19/18 08:28 Resp 20 08/19/18 09:56 BP 110/63 08/19/18 08:28 Pulse Ox 93 L 08/19/18 08:28 Weight - Most Recent: 102.512 kg I&O - Last 24 Hours: Intake & Output 08/18/18 08/19/18 08/19/18 22:59 06:59 14:59 Intake Total 3000 2114 Output Total 1500 1500 Balance 1500 614 Miguelito Results Last 24 Hrs: Microbiology 08/18/18 15:40 Gram Stain - Preliminary Pelvic Fluid Body Fluid Culture - Preliminary NO GROWTH AFTER 1 DAY 08/17/18 23:49 Urine Culture - Final Urine, Clean Catch MIXED HERVE >100,000 CFU/ML Med Orders - Current: Current Medications Hydrocodone Bitart/Acetaminophen ([place] 325-5 Mg) 2 tab PO Q4H PRN PRN Reason: Abdominal Pain Ciprofloxacin (Ciprofloxacin Hcl) 500 mg PO BID [facility] Last Admin: 08/19/18 09:22 Dose: 500 mg Fentanyl (Sublimaze) 50 - 100 mcg IVPUSH Q5M PRN PRN Reason: Pain (severe 7-10) Hydromorphone HCl (Dilaudid) 0.5 mg IVPUSH Q1H PRN PRN Reason: Pain (severe 7-10) Last Admin: 08/19/18 01:57 Dose: 0.5 mg Lactated Ringer's (Ringers, Lactated) 1,000 mls @ 125 mls/hr IV ASDIRECTED [facility] Last Admin: 08/19/18 03:25 Dose: 125 mls/hr Levothyroxine Sodium (Synthroid) 100 mcg PO ACBREAKFAST [facility] Last Admin: 08/19/18 06:38 Dose: 100 mcg Ondansetron HCl (Zofran) 4 mg IVPUSH Q6H PRN PRN Reason: Nausea/Vomiting Discontinued Medications Bupivacaine HCl (Marcaine 0.5%) Confirm Administered Dose 30 ml .ROUTE .STK-MED ONE Stop: 08/18/18 14:35 Fentanyl (Sublimaze) Confirm Administered Dose 100 mcg .ROUTE .STK-MED ONE Stop: 08/18/18 14:51 Fentanyl (Sublimaze) Confirm Administered Dose 100 mcg .ROUTE .STK-MED ONE Stop: 08/18/18 14:56 Glycopyrrolate (Robinul) Confirm Administered Dose 0.2 mg .ROUTE .STK-MED ONE Stop: 08/18/18 14:51 Hydromorphone HCl (Dilaudid) 2 mg IVPUSH ONETIME ONE Stop: 08/18/18 16:43 Last Admin: 08/18/18 18:31 Dose: Not Given Sodium Chloride (Normal Saline) 1,000 mls @ 999 mls/hr IV STAT ONE Stop: 08/18/18 00:30 Last Admin: 08/17/18 23:52 Dose: 999 mls/hr Sodium Chloride (Normal Saline) Confirm Administered Dose 20 mls @ as directed .ROUTE .STK-MED ONE Stop: 08/17/18 23:40 Last Admin: 08/17/18 23:56 Dose: 20 mls/hr Ceftriaxone Sodium/Dextrose 1 (gm/ Premix) 50 mls @ 100 mls/hr IV ONETIME ONE Stop: 08/18/18 02:15 Last Admin: 08/18/18 02:04 Dose: Not Given Piperacillin Sod/Tazobactam (Sod 3.375 gm/ Sodium Chloride) 50 mls @ 100 mls/ hr IV ONETIME ONE Stop: 08/18/18 02:19 Last Admin: 08/18/18 01:59 Dose: 100 mls/hr Sodium Chloride (Normal Saline) 1,000 mls @ 125 mls/hr IV ASDIRECTED [facility] Last Admin: 08/18/18 01:58 Dose: 125 mls/hr Piperacillin Sod/Tazobactam (Sod 3.375 gm/ Sodium Chloride) 50 mls @ 100 mls/ hr IV Q8H [facility] Last Admin: 08/18/18 10:52 Dose: 100 mls/hr Piperacillin Sod/Tazobactam (Sod 3.375 gm/ Sodium Chloride) 50 mls @ 100 mls/ hr IV Q6H [facility] Acetaminophen (Ofirmev) Confirm Administered Dose 100 mls @ as directed IV .STK- MED ONE Stop: 08/18/18 14:59 Ketorolac Tromethamine (Toradol) 30 mg IVPUSH ONETIME ONE Stop: 08/17/18 23:31 Last Admin: 08/18/18 00:53 Dose: 30 mg Midazolam HCl (Versed 1 Mg/Ml) Confirm Administered Dose 2 mg .ROUTE .STK-MED ONE Stop: 08/18/18 14:51 Morphine Sulfate (Morphine) Confirm Administered Dose 10 mg .ROUTE .STK-MED ONE Stop: 08/18/18 15:17 Ondansetron HCl (Zofran) 4 mg IVPUSH ONETIME ONE Stop: 08/17/18 23:31 Last Admin: 08/17/18 23:52 Dose: 4 mg Ondansetron HCl (Zofran) Confirm Administered Dose 4 mg .ROUTE .STK-MED ONE Stop: 08/18/18 14:51 Pantoprazole Sodium (Protonix Iv) 80 mg IVPUSH .BOLUS ONE Stop: 08/17/18 23:31 Last Admin: 08/17/18 23:54 Dose: 80 mg Propofol (Diprivan 20 Ml) Confirm Administered Dose 400 mg .ROUTE .STK-MED ONE Stop: 08/18/18 14:51 Sugammadex Sodium (Bridion) Confirm Administered Dose 200 mg .ROUTE .STK-MED ONE Stop: 08/18/18 14:59 - Exam Wound/Incisions: Healing Well, Dressing Dry and Intact General: Alert, Oriented, Cooperative HEENT: Pupils Equal, Pupils Reactive Lungs: Normal Respiratory Effort Cardiovascular: Regular Rate GI/Abdominal Exam: Soft, Non-Tender, No Distention, No Mass Skin: Warm, Dry, Intact Psy/Mental Status: Alert, Normal Affect, Normal Mood - Problem List & Annotations (1) Appendicitis SNOMED Code(s): 46340072 Code(s): K37 - UNSPECIFIED APPENDICITIS Status: Acute Current Visit: Yes Qualifiers: Appendicitis type: acute appendicitis Appendicitis gangrene presence: without gangrene Appendicitis perforation presence: without perforation Appendicitis abscess presence: without abscess (2) Abdominal pain SNOMED Code(s): 24473268 Code(s): R10.9 - UNSPECIFIED ABDOMINAL PAIN Status: Acute Current Visit: Yes (3) UTI (urinary tract infection) SNOMED Code(s): 65212720 Code(s): N39.0 - URINARY TRACT INFECTION, SITE NOT SPECIFIED Status: Acute Current Visit: Yes Qualifiers: Urinary tract infection type: acute cystitis Hematuria presence: without hematuria Qualified Code(s): N30.00 - Acute cystitis without hematuria (4) Ovarian cyst SNOMED Code(s): 31102648 Code(s): N83.209 - UNSPECIFIED OVARIAN CYST, UNSPECIFIED SIDE Status: Acute Current Visit: Yes - Problem List Review Problem List Initiated/Reviewed/Updated: Yes - My Orders Last 24 Hours: Active Orders 24 hr Category Date Time Status Regular Diet [DIET] Diet 08/19/18 Breakfast Active ANAEROBIC CULTURE Routine Lab 08/18/18 15:40 Received CULTURE BODY FLUID + SMEAR [RM] Routine Lab 08/18/18 15:40 Results Acetaminophen/HYDROcodone [[place] 325-5 MG] Med 08/18/18 16:47 Active 2 tab PO Q4H PRN Ciprofloxacin [Ciprofloxacin HCl] Med 08/18/18 21:00 Active 500 mg PO BID Levothyroxine [Synthroid] Med 08/18/18 17:15 Active 100 mcg PO ACBREAKFAST fentaNYL [Sublimaze] Med 08/18/18 16:42 Active 50 - 100 mcg IVPUSH Q5M PRN Medication Orders Hydrocodone Bitart/Acetaminophen ([place] 325-5 Mg) 2 tab PO Q4H PRN PRN Reason: Abdominal Pain Ciprofloxacin (Ciprofloxacin Hcl) 500 mg PO BID [facility] Last Admin: 08/19/18 09:22 Dose: 500 mg Admin: 08/18/18 22:26 Dose: 500 mg Fentanyl (Sublimaze) 50 - 100 mcg IVPUSH Q5M PRN PRN Reason: Pain (severe 7-10) Hydromorphone HCl (Dilaudid) 0.5 mg IVPUSH Q1H PRN PRN Reason: Pain (severe 7-10) Last Admin: 08/19/18 01:57 Dose: 0.5 mg Admin: 08/18/18 12:19 Dose: 0.5 mg Admin: 08/18/18 09:32 Dose: 0.5 mg Admin: 08/18/18 07:00 Dose: 0.5 mg Admin: 08/18/18 02:50 Dose: 0.5 mg Lactated Ringer's (Ringers, Lactated) 1,000 mls @ 125 mls/hr IV ASDIRECTED [facility] Last Admin: 08/19/18 03:25 Dose: 125 mls/hr Infusion: 08/19/18 03:25 Dose: 125 mls/hr Admin: 08/18/18 19:53 Dose: 125 mls/hr Infusion: 08/18/18 18:55 Dose: 125 mls/hr Admin: 08/18/18 10:55 Dose: 125 mls/hr Infusion: 08/18/18 10:30 Dose: 125 mls/hr Admin: 08/18/18 02:30 Dose: 125 mls/hr Levothyroxine Sodium (Synthroid) 100 mcg PO ACBREAKFAST [facility] Last Admin: 08/19/18 06:38 Dose: 100 mcg Admin: 08/18/18 18:04 Dose: Not Given Ondansetron HCl (Zofran) 4 mg IVPUSH Q6H PRN PRN Reason: Nausea/Vomiting - Assessment Assessment (Free Text/Narrative):: appendicitis - Plan Plan (Free Text/Narrative):: The patient appears well this morning. Overall she feels better than before surgery. Will advance diet to regular. If she tolerates that she be discharged home.
--- NOTE | 2018-08-19 10:28 | PCM.DCSUM1 ---
Discharge Summary - Hospital Course Free Text/Narrative:: Patient is a 23 year old female who presented to the ER with upper abdominal pain. She states the pain started last evening and persistently got worse. She has had similar episodes of some abdominal pain in the past but work up has been negative. This pain did not improve over time. It was associated with mild nausea. Denies fever, chills, shortness or breath or chest pain. She denied dysuria or frequency. Her UA showed a small amount of leukocyte esterase. Her WBC was minimally elevated at 13K. CT abdomen pelvis showed a minimally dilated appendix with possible surrounding infiltrate. When I saw the patient, she was complaining of some malaise and still some upper abominal pain. Her abdominal exam was fairly benign with no tenderness in the RLQ. After discussion the options, we decided to admit her to the floor. She would be NPO, IVF with IV zosyn. I came to check on the patient several hours later and she still was complaining of malaise and the abdominal pain was back with increased pain in the RLQ. A repeat CBC showed a WBC of 10K but with an increased neutrophil. The decision was made to proceed with an appendectomy. The appendix appeared enlarged but not severely inflamed or enlarged. The surgery went well and the patient has felt better afterwards. Her diet was advanced without difficulty. Her vitals were stable overnight. Her abdomen was nontender. Her pain was controlled and she was ambulating. She was discharged home. - Discharge Data Discharge Date: 08/19/18 Discharge Disposition: Home, Self-Care 01 Condition: Fair - Discharge Diagnosis/Problem(s) (1) Appendicitis SNOMED Code(s): 81591280 ICD Code: K37 - UNSPECIFIED APPENDICITIS Status: Acute Current Visit: Yes Qualifiers: Appendicitis type: acute appendicitis Appendicitis gangrene presence: without gangrene Appendicitis perforation presence: without perforation Appendicitis abscess presence: without abscess (2) Abdominal pain SNOMED Code(s): 44082220 ICD Code: R10.9 - UNSPECIFIED ABDOMINAL PAIN Status: Acute Current Visit : Yes (3) UTI (urinary tract infection) SNOMED Code(s): 28859280 ICD Code: N39.0 - URINARY TRACT INFECTION, SITE NOT SPECIFIED Status: Acute Current Visit: Yes Qualifiers: Urinary tract infection type: acute cystitis Hematuria presence: without hematuria Qualified Code(s): N30.00 - Acute cystitis without hematuria (4) Ovarian cyst SNOMED Code(s): 89661252 ICD Code: N83.209 - UNSPECIFIED OVARIAN CYST, UNSPECIFIED SIDE Status: Acute Current Visit: Yes - Patient Summary/Data Operative Procedure(s) Performed: laparoscopic appendectomy - Patient Instructions Diet: Regular Diet as Tolerated Activity: No Lifting Over 20 Pounds (for four weeks), Rest and Relax Today Activity, Other: No work for at least one week Driving: Do Not Drive (for one week ) Showering/Bathing: No Showering (until tomorrow ), No Tub Bathing/Swimming (for two weeks ) Wound/Incision Care: Keep Operative Site/Wound Site Clean and Dry Notify Provider of: Fever, Increased Pain, Swelling and Redness, Drainage, Nausea and/or Vomiting - Discharge Plan *PRESCRIPTION DRUG MONITORING PROGRAM REVIEWED*: Yes *COPY OF PRESCRIPTION DRUG MONITORING REPORT IN PATIENT LEIA: Yes Prescriptions/Med Rec: Ciprofloxacin [Ciprofloxacin HCl] 500 mg PO BID #8 tablet Home Medications: Home Meds Levothyroxine [Synthroid] 100 mcg PO ACBREAKFAST 08/17/18 [History] Ciprofloxacin [Ciprofloxacin HCl] 500 mg PO BID #8 tablet 08/18/18 [Rx] Patient Handouts: Acetaminophen; Hydrocodone tablets or capsules, Ciprofloxacin tablets Referrals: Laura Ingram MD [Physician] - 08/29/18 1:45 pm - Discharge Summary/Plan Comment DC Time >30 min.: No - General Info Functional Status: Reports: Pain Controlled, Tolerating Diet, Ambulating, Urinating - Review of Systems General: Reports: No Symptoms HEENT: Reports: No Symptoms Pulmonary: Reports: No Symptoms Cardiovascular: Reports: No Symptoms Gastrointestinal: Reports: No Symptoms Genitourinary: Reports: No Symptoms - Patient Data Vitals - Most Recent: Last Vital Signs Temp 37.6 C 08/19/18 08:28 Pulse 83 08/19/18 08:28 Resp 20 08/19/18 09:56 BP 110/63 08/19/18 08:28 Pulse Ox 93 L 08/19/18 08:28 Weight - Most Recent: 102.512 kg I&O - Last 24 hours: Intake & Output 08/18/18 08/19/18 08/19/18 22:59 06:59 14:59 Intake Total 3000 2114 Output Total 1500 1500 Balance 1500 614 QUIN Results - Last 24 hrs: Microbiology 08/18/18 15:40 Gram Stain - Preliminary Pelvic Fluid Body Fluid Culture - Preliminary NO GROWTH AFTER 1 DAY 08/17/18 23:49 Urine Culture - Final Urine, Clean Catch MIXED HERVE >100,000 CFU/ML Med Orders - Current: Current Medications Hydrocodone Bitart/Acetaminophen (Stehekin 325-5 Mg) 2 tab PO Q4H PRN PRN Reason: Abdominal Pain Ciprofloxacin (Ciprofloxacin Hcl) 500 mg PO BID [facility] Last Admin: 08/19/18 09:22 Dose: 500 mg Fentanyl (Sublimaze) 50 - 100 mcg IVPUSH Q5M PRN PRN Reason: Pain (severe 7-10) Hydromorphone HCl (Dilaudid) 0.5 mg IVPUSH Q1H PRN PRN Reason: Pain (severe 7-10) Last Admin: 08/19/18 01:57 Dose: 0.5 mg Lactated Ringer's (Ringers, Lactated) 1,000 mls @ 125 mls/hr IV ASDIRECTED [facility] Last Admin: 08/19/18 03:25 Dose: 125 mls/hr Levothyroxine Sodium (Synthroid) 100 mcg PO ACBREAKFAST [facility] Last Admin: 08/19/18 06:38 Dose: 100 mcg Ondansetron HCl (Zofran) 4 mg IVPUSH Q6H PRN PRN Reason: Nausea/Vomiting Discontinued Medications Bupivacaine HCl (Marcaine 0.5%) Confirm Administered Dose 30 ml .ROUTE .STK-MED ONE Stop: 08/18/18 14:35 Fentanyl (Sublimaze) Confirm Administered Dose 100 mcg .ROUTE .STK-MED ONE Stop: 08/18/18 14:51 Fentanyl (Sublimaze) Confirm Administered Dose 100 mcg .ROUTE .STK-MED ONE Stop: 08/18/18 14:56 Glycopyrrolate (Robinul) Confirm Administered Dose 0.2 mg .ROUTE .STK-MED ONE Stop: 08/18/18 14:51 Hydromorphone HCl (Dilaudid) 2 mg IVPUSH ONETIME ONE Stop: 08/18/18 16:43 Last Admin: 08/18/18 18:31 Dose: Not Given Sodium Chloride (Normal Saline) 1,000 mls @ 999 mls/hr IV STAT ONE Stop: 08/18/18 00:30 Last Admin: 08/17/18 23:52 Dose: 999 mls/hr Sodium Chloride (Normal Saline) Confirm Administered Dose 20 mls @ as directed .ROUTE .STK-MED ONE Stop: 08/17/18 23:40 Last Admin: 08/17/18 23:56 Dose: 20 mls/hr Ceftriaxone Sodium/Dextrose 1 (gm/ Premix) 50 mls @ 100 mls/hr IV ONETIME ONE Stop: 08/18/18 02:15 Last Admin: 08/18/18 02:04 Dose: Not Given Piperacillin Sod/Tazobactam (Sod 3.375 gm/ Sodium Chloride) 50 mls @ 100 mls/ hr IV ONETIME ONE Stop: 08/18/18 02:19 Last Admin: 08/18/18 01:59 Dose: 100 mls/hr Sodium Chloride (Normal Saline) 1,000 mls @ 125 mls/hr IV ASDIRECTED JETT Last Admin: 08/18/18 01:58 Dose: 125 mls/hr Piperacillin Sod/Tazobactam (Sod 3.375 gm/ Sodium Chloride) 50 mls @ 100 mls/ hr IV Q8H JETT Last Admin: 08/18/18 10:52 Dose: 100 mls/hr Piperacillin Sod/Tazobactam (Sod 3.375 gm/ Sodium Chloride) 50 mls @ 100 mls/ hr IV Q6H JETT Acetaminophen (Ofirmev) Confirm Administered Dose 100 mls @ as directed IV .STK- MED ONE Stop: 08/18/18 14:59 Ketorolac Tromethamine (Toradol) 30 mg IVPUSH ONETIME ONE Stop: 08/17/18 23:31 Last Admin: 08/18/18 00:53 Dose: 30 mg Midazolam HCl (Versed 1 Mg/Ml) Confirm Administered Dose 2 mg .ROUTE .STK-MED ONE Stop: 08/18/18 14:51 Morphine Sulfate (Morphine) Confirm Administered Dose 10 mg .ROUTE .STK-MED ONE Stop: 08/18/18 15:17 Ondansetron HCl (Zofran) 4 mg IVPUSH ONETIME ONE Stop: 08/17/18 23:31 Last Admin: 08/17/18 23:52 Dose: 4 mg Ondansetron HCl (Zofran) Confirm Administered Dose 4 mg .ROUTE .STK-MED ONE Stop: 08/18/18 14:51 Pantoprazole Sodium (Protonix Iv) 80 mg IVPUSH .BOLUS ONE Stop: 08/17/18 23:31 Last Admin: 08/17/18 23:54 Dose: 80 mg Propofol (Diprivan 20 Ml) Confirm Administered Dose 400 mg .ROUTE .STK-MED ONE Stop: 08/18/18 14:51 Sugammadex Sodium (Bridion) Confirm Administered Dose 200 mg .ROUTE .STK-MED ONE Stop: 08/18/18 14:59 - Exam General: Reports: Alert, Oriented HEENT: Reports: Pupils Equal, Pupils Reactive Lungs: Reports: Normal Respiratory Effort Cardiovascular: Reports: Regular Rate GI/Abdominal Exam: Soft, Non-Tender, No Distention, No Mass Back Exam: Reports: Normal Inspection, Full Range of Motion Extremities: Normal Inspection
== END 2018-08-19 14:00 | disposition home or self-care (01) ==
LOC: MW.ED 23:17 → MW.MS 08-18 01:51
PROVIDERS: ADMIT Surgery; ATTEND Surgery
DX: K35.80 Unspecified acute appendicitis (principal); N30.00 Acute cystitis without hematuria; E03.9 Hypothyroidism, unspecified; N83.209 Unspecified ovarian cyst, unspecified side; E66.9 Obesity, unspecified; Z68.41 Body mass index [BMI] 40.0-44.9, adult; Z79.890 Hormone replacement therapy; Z88.8 Allergy status to other drugs, medicaments and biological substances
CPT/HCPCS: 36415; 44970; 74176; 80053; 81001; 82150; 83690; 84703; 85025; 85610; 87070; 87075; 87086; 87205; 96361; 96365; 96375; 96376; 99285; A9270; C9113; G0378; J0131; J1170; J1885; J2250; J2270; J2405; J2543; J2704; J3010; J3490; J7040; J7050; J7120; 88304; 99283

== ENCOUNTER 2019-07-16 20:23 | Emergency (ER) | payer BC ==
[2019-07-16] MEDS ORDERED: Ondansetron 4 MG Tab.DIS PO STA (20:51)
--- NOTE | 2019-07-16 21:43 | EDM.PDOC ---
ED HPI GENERAL MEDICAL PROBLEM - General Chief Complaint: Gastrointestinal Problem Stated Complaint: 14 WKS Time Seen by Provider: 07/16/19 20:40 Source of Information: Reports: Patient - History of Present Illness INITIAL COMMENTS - FREE TEXT/NARRATIVE: The patient is a 23-year-old female on her first who is 14 weeks complaining of a lot of nausea and vomiting and generally not feeling well. No abdominal pain, no headaches, no diarrhea, no vaginal bleeding, no other acute complaints. 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 She is concerned because she continues to not feel well and feels like she cannot keep down any fluids. Headache Pain Score (Numeric/FACES): 6 - Related Data Allergies Allergy/AdvReac Type Severity Reaction Status Date / Time prochlorperazine Allergy Anxiety Verified 07/16/19 20:26 [From Compazine] Home Meds: Home Meds Levothyroxine [Synthroid] 137 mcg PO ACBREAKFAST 08/17/18 [History] Aspirin [Low Dose Aspirin EC] 81 mg PO DAILY 07/16/19 [History] Past Medical History HEENT History: Reports: Impaired Vision, Other (See Below) Other HEENT History: Wears glasses. 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 SPEED W[employer]ER History: Reports: None Musculoskeletal History: Reports: None Neurological History: Reports: None Psychiatric History: Reports: None Endocrine/Metabolic History: Reports: Hypothyroidism Hematologic History: Reports: None Immunologic History: Reports: None Oncologic (Cancer) History: Reports: None Dermatologic History: Reports: None - Infectious Disease History Infectious Disease History: Reports: Chicken Pox - Past Surgical History Head Surgeries/Procedures: Reports: None HEENT Surgical History: Reports: Tonsillectomy Cardiovascular Surgical History: Reports: None GI Surgical History: Reports: Appendectomy Endocrine Surgical History: Reports: None Social & Family History - Family History Family Medical History: Noncontributory - Tobacco Use Smoking Status *Q: Never Smoker - Caffeine Use Caffeine Use: Reports: Soda - Recreational Drug Use Recreational Drug Use: No ED ROS GENERAL - Review of Systems Review Of Systems: See Below (Positive for nausea and vomiting, negative for abdominal pain, negative for vaginal bleeding, all other Positives and pertinent negatives as per HPI. All other pertinent systems were reviewed and are negative) ED EXAM - Physical Exam Exam: See Below Text/Narrative:: Constitutional: No acute distress, Non-toxic appearance, looks like she does not feel well HEENT.: Normocephalic, Atraumatic, PERRL, EOMI, External ears are atraumatic, Oropharynx clear and moist without lesions or masses, nares are patent without epistaxis Neck: Normal range of motion, Trachea Midline, No stridor Respiratory.: No respiratory distress, No tachypnea, Lungs Clear to Auscultation bilaterally without wheezes, rales, or rhonchi Cardiovascular.: Regular rate and Rhythm without murmurs, rubs, or gallops, good peripheral perfusion GI: Abdomen soft and non tender, obese Genital Urinary: Deferred Musculoskeletal: Good range of motion. All 4 extremities present and atraumatic , no edema Back: Full Range of Motion Skin: Warm, Dry, Color is ethnicity appropriate, No acute rash, good skin turgor. Lymphatic: No lymphadenopathy noted Neurological: Alert, Awake and oriented x 3, No focal deficits noted appreciate , GCS 15 Psych: Affect, Judgement, mood normal Course - Vital Signs Text/Narrative:: Given the entire history and exam I am not concerned about any clinically relevant dehydration as the patient has moist mucous membranes, good skin turgor , and normal vital signs. Furthermore, she is not having any abdominal pain, or vaginal bleeding and her has already been confirmed an ultrasound. She does not have any antiemetics so I talked with her and her significant other in detail about providing her with Zofran ODT instead of Phenergan suppositories as while they are both effective, most people would prefer an ODT tablet instead. She stated her understanding and this medication was provided to her. I went to check on her later and she stated that she still was not feeling well. She denied having any nausea at this time, and the patient has not thrown up at all in the ER and has kept down fluids. However, she was very upset and stated that she needed IV fluids because she was severely dehydrated. At this point the patient is crying and I mentioned to her that she does not have any clinical indications for an IV, and if she did not like the Zofran even though this did appear to help her nausea I can prescribe her Phenergan suppositories and then she became extremely angry and demanded her discharge papers and does not want any prescriptions. Last Recorded V/S: Last Vital Signs Temp 37.2 C 07/16/19 21:30 Pulse 94 07/16/19 21:30 Resp 18 07/16/19 21:30 BP 112/82 07/16/19 21:30 Pulse Ox 97 07/16/19 21:30 - Orders/Labs/Meds Meds: Medications Discontinued Medications Generic Name Dose Route Start Last Admin Trade Name Denae PRN Reason Stop Dose Admin Ondansetron HCl 4 mg 07/16/19 20:51 07/16/19 20:56 Zofran Odt PO 07/16/19 20:52 4 mg ONETIME STA Administration Departure - Departure Time of Disposition: 21:41 Disposition: Home, Self-Care 01 Condition: Good Clinical Impression: Vomiting affecting - Discharge Information Instructions: Morning Sickness, [id number] Referrals: Caroline Abbott MD [Primary Care Provider] - Forms: ED Department Discharge Care Plan Goals: The following information is given to patients seen in the emergency department who are being discharged to home. This information is to outline your options for follow-up care. We provide all patients seen in our emergency department with a follow-up referral. The need for follow-up, as well as the timing and circumstances, are variable depending upon the specifics of your emergency department visit. If you don't have a primary care physician on staff, we will provide you with a referral. We always advise you to contact your personal physician following an emergency department visit to inform them of the circumstance of the visit and for follow-up with them and/or the need for any referrals to a consulting specialist. The emergency department will also refer you to a specialist when appropriate. This referral assures that you have the opportunity for follow-up care with a specialist. All of these measure are taken in an effort to provide you with optimal care, which includes your follow-up. Under all circumstances we always encourage you to contact your private physician who remains a resource for coordinating your care. When calling for follow-up care, please make the office aware that this follow-up is from your recent emergency room visit. If for any reason you are refused follow-up, please contact the [facility] at and asked to speak to the emergency department charge nurse. MONIK [facility] [address] [place] [address] [facility] [address] [place] [id number] Sepsis Event Note - Evaluation Sepsis Screening Result: No Definite Risk - Focused Exam Vital Signs: Vital Signs Temp Pulse Resp BP Pulse Ox 07/16/19 21:30 37.2 C 94 18 112/82 97 07/16/19 20:27 36.2 C 115 H 20 130/71 98 Date Exam was Performed: 07/17/19 Time Exam was Performed: 05:32
== END 2019-07-16 21:45 | disposition home or self-care (01) ==
LOC: MW.ED 20:23
DX: O21.9 Vomiting of pregnancy, unspecified (principal); Z3A.14 14 weeks gestation of pregnancy; Z79.82 Long term (current) use of aspirin
CPT/HCPCS: 99283; A9270

== ENCOUNTER 2019-07-25 08:33 | Emergency (ER) | payer BC ==
[2019-07-25] MEDS ORDERED: Sodium Chloride 0.9% 1,000 ML IV ONE ×2 (09:01→10:41)
[2019-07-25] MEDS ORDERED: Acetaminophen 500 MG Tab PO ONE (09:02)
[2019-07-25 09:22] LABS: BLOOD UREA NITROGEN,BUN 7 mg/dL (7.0-18.0); CARBON DIOXIDE,CO2 19.5 mmol/L (21.0-32.0); CHLORIDE,CL 103 mmol/L (98-107); GLUCOSE RANDOM 93 mg/dL (74-106); POTASSIUM,K 3.6 mmol/L (3.5-5.1); SODIUM,NA 138 mmol/L (136-145)
--- NOTE | 2019-07-25 09:34 | EDM.PDOC ---
ED HPI GENERAL MEDICAL PROBLEM - General Chief Complaint: Respiratory Problem Stated Complaint: TROUBLE BREATHING Time Seen by Provider: 07/25/19 08:50 - History of Present Illness INITIAL COMMENTS - FREE TEXT/NARRATIVE: 23-year-old female 16 weeks presenting to ER for cough congestion and trouble breathing. Describes her trouble breathing as increased congestion and inability to clear mucus. Denied vomiting denied abdominal pain no vaginal bleeding. Denied pelvic pain. no sick contacts. throat Pain Score (Numeric/FACES): 8 - Related Data Allergies Allergy/AdvReac Type Severity Reaction Status Date / Time prochlorperazine Allergy Anxiety Verified 07/25/19 08:45 [From Compazine] Home Meds: Home Meds Levothyroxine [Synthroid] 137 mcg PO ACBREAKFAST 08/17/18 [History] Aspirin [Low Dose Aspirin EC] 81 mg PO DAILY 07/16/19 [History] Acetaminophen 975 mg PO Q6HR PRN 7 Days #30 tablet 07/25/19 [Rx] Nitrofurantoin Monohyd/M-Cryst [Macrobid 100 mg Capsule] 100 mg PO BID 5 Days # 10 capsule 07/25/19 [Rx] Oseltamivir [Tamiflu] 75 mg PO BID 5 Days #10 cap 07/25/19 [Rx] Past Medical History HEENT History: Reports: Impaired Vision, Other (See Below) Other HEENT History: Wears glasses. 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 Musculoskeletal History: Reports: None Neurological History: Reports: None Psychiatric History: Reports: None Endocrine/Metabolic History: Reports: Hypothyroidism Hematologic History: Reports: None Immunologic History: Reports: None Oncologic (Cancer) History: Reports: None Dermatologic History: Reports: None - Infectious Disease History Infectious Disease History: Reports: None - Past Surgical History Head Surgeries/Procedures: Reports: None HEENT Surgical History: Reports: Tonsillectomy Cardiovascular Surgical History: Reports: None GI Surgical History: Reports: Appendectomy Endocrine Surgical History: Reports: None Social & Family History - Family History Family Medical History: Noncontributory - Tobacco Use Smoking Status *Q: Never Smoker - Caffeine Use Caffeine Use: Reports: None - Recreational Drug Use Recreational Drug Use: No ED ROS GENERAL - Review of Systems Review Of Systems: See Below Constitutional: Reports: Fever HEENT: Reports: Throat Pain Respiratory: Reports: Cough Cardiovascular: Reports: No Symptoms Endocrine: Reports: No Symptoms GI/Abdominal: Reports: No Symptoms : Reports: No Symptoms Musculoskeletal: Reports: No Symptoms Skin: Reports: No Symptoms Neurological: Reports: No Symptoms Psychiatric: Reports: No Symptoms Hematologic/Lymphatic: Reports: No Symptoms Immunologic: Reports: No Symptoms ED EXAM, GENERAL - Physical Exam Exam: See Below Exam Limited By: No Limitations General Appearance: Alert, No Apparent Distress Eye Exam: Bilateral Eye: EOMI Nose: Normal Inspection Throat/Mouth: Normal Inspection, Normal Gums, Normal Oropharynx, Normal Voice, No Airway Compromise Head: Atraumatic Neck: Normal Inspection Respiratory/Chest: Lungs Clear, Normal Breath Sounds, No Accessory Muscle Use, Chest Non-Tender Cardiovascular: Normal Peripheral Pulses, Regular Rate, Rhythm, No Edema, No Gallop, No JVD, No Murmur, No Rub GI/Abdominal: Soft, Non-Tender (Female) Exam: Deferred Rectal (Female) Exam: Deferred Extremities: No Pedal Edema Neurological: Alert, Oriented, Normal Cognition Psychiatric: Normal Affect Skin Exam: Warm EKG INTERPRETATION Rhythm: NSR EKG Interpretation Comments: sinus tachycardia Course - Vital Signs Last Recorded V/S: Last Vital Signs Temp 101 F H 07/25/19 10:00 Pulse 108 H 07/25/19 12:00 Resp 18 07/25/19 12:00 BP 112/59 L 07/25/19 12:00 Pulse Ox 98 07/25/19 12:00 - Orders/Labs/Meds Orders: Active Orders 24 hr Category Date Time Status EKG 12 Lead [EKG Documentation Completion] [RC] URGENT Care 07/25/19 09:06 Active Heart Tones [RC] ASDIRECTED Care 07/25/19 09:33 Inactive CULTURE URINE [RM] Stat Lab 07/25/19 09:32 Received Labs: Laboratory Tests 07/25/19 07/25/19 07/25/19 Range/Units 08:48 08:48 09:32 WBC 5.77 (4.0-11.0) K/uL RBC 4.45 (4.30-5.90) M/uL Hgb 12.2 (12.0-16.0) g/dL Hct 36.8 (36.0-46.0) % MCV 82.7 (80.0-98.0) fL MCH 27.4 (27.0-32.0) pg MCHC 33.2 (31.0-37.0) g/dL RDW Std Deviation 41.7 (28.0-62.0) fl RDW Coeff of Roney 14 (11.0-15.0) % Plt Count 234 (150-400) K/uL MPV 10.70 (7.40-12.00) fL Neut % (Auto) 80.2 H (48.0-80.0) % Lymph % (Auto) 13.7 L (16.0-40.0) % [place] % (Auto) 6.1 (0.0-15.0) % Eos % (Auto) 0.0 (0.0-7.0) % Baso % (Auto) 0.0 (0.0-1.5) % Neut # (Auto) 4.6 (1.4-5.7) K/uL Lymph # (Auto) 0.8 (0.6-2.4) K/uL [place] # (Auto) 0.4 (0.0-0.8) K/uL Eos # (Auto) 0.0 (0.0-0.7) K/uL Baso # (Auto) 0.0 (0.0-0.1) K/uL Nucleated RBC % 0.0 /100WBC Nucleated RBCs # 0 K/uL Sodium 138 (136-145) mmol/L Potassium 3.6 (3.5-5.1) mmol/L Chloride 103 (98-107) mmol/L Carbon Dioxide 19.5 L (21.0-32.0) mmol/L BUN 7 (7.0-18.0) mg/dL Creatinine 0.5 L (0.6-1.0) mg/dL Est Cr Clr Drug Dosing 144.76 mL/min Estimated GFR (MDRD) > 60.0 ml/min Glucose 93 (74-106) mg/dL Calcium 9.1 (8.5-10.1) mg/dL Total Bilirubin 0.4 (0.2-1.0) mg/dL AST 48 H (15-37) IU/L ALT 51 (14-63) IU/L Alkaline Phosphatase 95 (46-116) U/L Total Protein 8.1 (6.4-8.2) g/dL Albumin 3.4 (3.4-5.0) g/dL Globulin 4.7 H (2.6-4.0) g/dL Albumin/Globulin Ratio 0.7 L (0.9-1.6) Urine Color DARK YELLOW Urine Appearance SLT CLOUDY Urine pH 6.0 (5.0-8.0) Ur Specific [place] >= 1.030 (1.001-1.035) Urine Protein 30 H (NEGATIVE) mg/dL Urine Glucose (UA) NEGATIVE (NEGATIVE) mg/dL Urine Ketones >=80 (NEGATIVE) mg/dL Urine Occult Blood MODERATE H (NEGATIVE) Urine Nitrite NEGATIVE (NEGATIVE) Urine Bilirubin MODERATE H (NEGATIVE) Urine Ictotest NEGATIVE Urine Urobilinogen 1.0 (<2.0) EU/dL Ur Leukocyte Esterase MODERATE H (NEGATIVE) Urine RBC 1-3 (0-2/HPF) Urine WBC 10-12 (0-5/HPF) Ur Epithelial Cells MANY (NONE-FEW) Urine Bacteria 1+ H (NEGATIVE) Urinalysis Comment Meds: Medications Discontinued Medications Generic Name Dose Route Start Last Admin Trade Name Gavinq PRN Reason Stop Dose Admin Acetaminophen 1,000 mg 07/25/19 09:02 07/25/19 09:11 Tylenol Extra Strength PO 07/25/19 09:03 1,000 mg ONETIME ONE Administration Sodium Chloride 1,000 mls @ 999 mls/hr 07/25/19 09:01 07/25/19 09:13 Normal Saline IV 07/25/19 10:01 999 mls/hr .BOLUS ONE Administration Sodium Chloride 1,000 mls @ 999 mls/hr 07/25/19 10:41 07/25/19 10:46 Normal Saline IV 07/25/19 11:41 999 mls/hr .BOLUS ONE Administration - Re-Assessments/Exams Free Text/Narrative Re-Assessment/Exam: 07/25/19 11:35 Patient is flu positive her symptoms are consistent with the flu. Symptoms started the night prior. Antipyretics and IV fluids her heart rate went down. It was elevated initially due to fever and her active coughing. She is in no respiratory distress feels improved. Lung sounds were clear. Did speak about imaging patient, decided to defer for now. She will be discharged with Tamiflu acetaminophen. Will also be given Macrobid for asymptomatic bacteriuria. No significant leukocytosis her labs were also unremarkable. Heart rate prior to discharge was 107. Return precautions were discussed with the patient. She had no abdominal or pelvic complaints. 07/25/19 11:37 Departure - Departure Time of Disposition: 12:12 Disposition: Home, Self-Care 01 Clinical Impression: Influenza - Discharge Information Prescriptions: Acetaminophen 975 mg PO Q6HR PRN 7 Days #30 tablet PRN Reason: Fever Nitrofurantoin Monohyd/M-Cryst [Macrobid 100 mg Capsule] 100 mg PO BID 5 Days # 10 capsule Oseltamivir [Tamiflu] 75 mg PO BID 5 Days #10 cap Instructions: Urinary Tract Infection, Adult Referrals: Caroline Abbott MD [Primary Care Provider] - Forms: ED Department Discharge Additional Instructions: Return to ED if if your fever worsens/persists if you cannot breathe, you have signs of dehydration or if you have any concerns. The following information is given to patients seen in the emergency department who are being discharged to home. This information is to outline your options for follow-up care. We provide all patients seen in our emergency department with a follow-up referral. The need for follow-up, as well as the timing and circumstances, are variable depending upon the specifics of your emergency department visit. If you don't have a primary care physician on staff, we will provide you with a referral. We always advise you to contact your personal physician following an emergency department visit to inform them of the circumstance of the visit and for follow-up with them and/or the need for any referrals to a consulting specialist. The emergency department will also refer you to a specialist when appropriate. This referral assures that you have the opportunity for follow-up care with a specialist. All of these measure are taken in an effort to provide you with optimal care, which includes your follow-up. Under all circumstances we always encourage you to contact your private physician who remains a resource for coordinating your care. When calling for follow-up care, please make the office aware that this follow-up is from your recent emergency room visit. If for any reason you are refused follow-up, please contact the [facility] Emergency Department at and asked to speak to the emergency department charge nurse. Sepsis Event Note - Evaluation Sepsis Screening Result: No Definite Risk - Focused Exam Vital Signs: Vital Signs Temp Temp Temp Pulse Resp BP Pulse Ox 07/25/19 12:00 108 H 18 112/59 L 98 07/25/19 11:30 109 H 115/67 97 07/25/19 11:00 128 H 18 119/66 96 07/25/19 10:30 115 H 18 131/66 97 07/25/19 10:00 101 F H 07/25/19 09:45 134 H 20 109/62 97 07/25/19 09:41 101 F H 07/25/19 09:30 121 H 20 127/75 98 07/25/19 09:15 138 H 22 H 129/84 96 07/25/19 09:00 143 H 22 H 126/84 97 07/25/19 08:42 96.7 F L 156 H 24 H 123/89 94 L Date Exam was Performed: 07/25/19 Time Exam was Performed: 12:12 - My Orders Last 24 Hours: My Active Orders 07/25/19 09:06 EKG 12 Lead [EKG Documentation Completion] [RC] URGENT 07/25/19 09:32 CULTURE URINE [RM] Stat 07/25/19 09:33 Heart Tones [RC] ASDIRECTED - Assessment/Plan Last 24 Hours: My Active Orders 07/25/19 09:06 EKG 12 Lead [EKG Documentation Completion] [RC] URGENT 07/25/19 09:32 CULTURE URINE [RM] Stat 07/25/19 09:33 Heart Tones [RC] ASDIRECTED
== END 2019-07-25 12:27 | disposition home or self-care (01) ==
LOC: MW.ED 08:33
DX: J11.1 Influenza due to unidentified influenza virus with other respiratory manifestations (principal); Z88.8 Allergy status to other drugs, medicaments and biological substances; Z79.82 Long term (current) use of aspirin; Z79.899 Other long term (current) drug therapy
CPT/HCPCS: 36415; 80053; 81001; 85025; 87086; 87804; 93005; 96360; 96361; 99285; A9270; J7030; 99284

== ENCOUNTER 2019-07-27 18:32 | Observation (INO) | payer BC ==
[2019-07-27] MEDS ORDERED: Acetaminophen 325 MG Tab PO PRN (19:12)
[2019-07-27] MEDS ORDERED: Ondansetron 4 MG/2 ML SDV IVPUSH PRN (19:12)
[2019-07-27] MEDS: Oseltamivir 75 MG Cap PO SCH (21:19)
[2019-07-27] MEDS: Nitrofurantoin Monohydrate/Macrocrystalline 100 MG Cap PO SCH (21:19)
[2019-07-27] MEDS: Potassium Chloride 20 MEQ Tab.ER PO SCH (21:19)
--- NOTE | 2019-07-27 21:50 | PCM.LDHP ---
L&D History of Present Illness - General Date of Service: 07/27/19 Admit Problem/Dx: Patient Status Order with Admit Dx/Problem 07/27/19 19:12 Patient Status [ADT] Routine Admission Diagnosis/Problem Admission Diagnosis/Problem Influenza with non-respiratory manifestation - History of Present Illness Introduction:: 23yo at 16w1d presenting with influenza and dehydration. Patient was seen in ED 2 days ago with body aches, URI symptoms and fever. She was positive for influenza B and was started on tamiflu. She was also noted to have asymptomatic bacteruria and started on macrobid. She was seen in clinic today, reports she is no longer having fevers and SOB, but continues to have nausea, fatigue with decreased PO intake. Past few days has been vomitting multiple times a day. She was given 2L of NS in the infusion center and zofran IV. CMP noted to have low potassium of 2.9 and elevated LFTs with AST and ALT of 70s. She was admitted to OBS for potassium replacement and repeat labs. has been uncomplicated otherwise. Has hypothyroidism, well controlled with synthyroid. - Related Data Allergies/Adverse Reactions: Allergies Allergy/AdvReac Type Severity Reaction Status Date / Time prochlorperazine Allergy Anxiety Verified 07/27/19 20:02 [From Compazine] Home Medications: Home Meds Levothyroxine [Synthroid] 137 mcg PO ACBREAKFAST 08/17/18 [History] Aspirin [Low Dose Aspirin EC] 81 mg PO DAILY 07/16/19 [History] Nitrofurantoin Monohyd/M-Cryst [Macrobid 100 mg Capsule] 100 mg PO BID 5 Days # 10 capsule 07/25/19 [Rx] Oseltamivir [Tamiflu] 75 mg PO BID 5 Days #10 cap 07/25/19 [Rx] Acetaminophen 650 mg PO Q6HR PRN 07/27/19 [History] Past Medical History HEENT History: Reports: Impaired Vision, Other (See Below) Other HEENT History: Wears glasses. 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 Musculoskeletal History: Reports: None Neurological History: Reports: None Psychiatric History: Reports: None Endocrine/Metabolic History: Reports: Hypothyroidism Hematologic History: Reports: None Immunologic History: Reports: None Oncologic (Cancer) History: Reports: None Dermatologic History: Reports: None - Infectious Disease History Infectious Disease History: Reports: None - Past Surgical History Head Surgeries/Procedures: Reports: None HEENT Surgical History: Reports: Tonsillectomy Cardiovascular Surgical History: Reports: None GI Surgical History: Reports: Appendectomy Endocrine Surgical History: Reports: None Social & Family History - Family History Family Medical History: Noncontributory - Tobacco Use Smoking Status *Q: Never Smoker Second Hand Smoke Exposure: No - Caffeine Use Caffeine Use: Reports: None - Recreational Drug Use Recreational Drug Use: No H&P Review of Systems - Review of Systems: Review Of Systems: See Below General: Reports: Chills, Weakness, Fatigue HEENT: Reports: Sore Throat Pulmonary: Reports: Cough Cardiovascular: Reports: No Symptoms Gastrointestinal: Reports: Decreased Appetite, Nausea, Vomiting Genitourinary: Reports: No Symptoms Musculoskeletal: Reports: Muscle Pain Skin: Reports: No Symptoms Psychiatric: Reports: No Symptoms Neurological: Reports: No Symptoms Hematologic/Lymphatic: Reports: No Symptoms Immunologic: Reports: No Symptoms L&D Exam - Exam Exam: See Below - Vital Signs Vital Signs: Last Vital Signs Temp 37.2 C 07/27/19 19:57 Pulse 94 07/27/19 19:57 Resp 16 07/27/19 19:57 BP 104/66 07/27/19 19:57 Pulse Ox 98 07/27/19 19:57 Weight: 222 lb 7.143 oz - Exam General: Alert, Oriented, Cooperative, Mild Distress HEENT: Conjunctiva Clear, Mucosa Moist & [place], Pupils Equal, Pupils Reactive Neck: Supple, Trachea Midline Lungs: Clear to Auscultation, Normal Respiratory Effort Cardiovascular: Regular Rate, Regular Rhythm, Normal S1, Normal S2 GI/Abdominal Exam: Soft, Non-Tender, No Organomegaly, No Distention Back Exam: Normal Inspection, Full Range of Motion Extremities: Normal Inspection, Normal Range of Motion, Non-Tender, No Pedal Edema Skin: Warm, Dry, Intact Psychiatric: Alert, Normal Affect, Normal Mood - Patient Data Result Diagrams: 07/28/19 04:46 07/28/19 04:46 Problem List Initiated/Reviewed/Updated: Yes Orders Last 24hrs: Active Orders 24 hr Category Date Time Status Patient Status [ADT] Routine ADT 07/27/19 19:12 Active Ambulate [RC] ASDIRECTED Care 07/27/19 19:12 Active Influenza Vaccine Charge [RC] .DISCHARGE Care 07/27/19 19:05 Active Oxygen Therapy [RC] PRN Care 07/27/19 19:12 Active Pulse Oximetry [RC] Q4HR Care 07/27/19 19:14 Active VTE/DVT Education [RC] PER UNIT ROUTINE Care 07/27/19 19:12 Active Vital Signs [RC] Q4H Care 07/27/19 19:12 Active Regular Diet [DIET] Diet 07/27/19 Dinner Active CBC W/O DIFF,HEMOGRAM [HEME] AM Lab 07/28/19 05:11 Ordered COMPREHENSIVE METABOLIC PN,CMP [CHEM] AM Lab 07/28/19 05:11 Ordered MAGNESIUM [CHEM] AM Lab 07/28/19 05:11 Ordered Acetaminophen [Tylenol] Med 07/27/19 19:12 Active 650 mg PO Q4H PRN Dextrose 5%-0.9% NaCl [Dextrose 5%-Normal Saline] 1,000 Med 07/27/19 21:30 Active ml IV ASDIRECTED Nitrofurantoin [place]/Macrocryst [Macrobid] Med 07/27/19 21:00 Active 100 mg PO BID Ondansetron [Zofran] Med 07/27/19 19:12 Active 4 mg IVPUSH Q4H PRN Oseltamivir [Tamiflu] Med 07/27/19 21:00 Active 75 mg PO BID Pharmacy to Dose - InFluenza V [Pharmacy to Dose - Med 07/27/19 19:05 Pending InFluenza Vaccine] 1 each IM ONETIME ONE Potassium Chloride Riders [KCL 20 MEQ in Water 50 ML] Med 07/27/19 22:00 Active 20 meq Premix Bag 1 bag IV Q2H Potassium Chloride [Klor-Con M20] Med 07/27/19 21:00 Active 20 meq PO BID Resuscitation Status Routine Resus Stat 07/27/19 19:12 Ordered Medication Orders Acetaminophen (Tylenol) 650 mg PO Q4H PRN PRN Reason: Pain (Mild 1-3)/fever Potassium Chloride 20 meq/ (Premix) 50 mls @ 25 mls/hr IV Q2H JETT Stop: 07/28/19 01:59 Dextrose/Sodium Chloride (Dextrose 5%-Normal Saline) 1,000 mls @ 100 mls/hr IV ASDIRECTED [facility] Influenza Virus Vaccine (Pharmacy To Dose - Influenza Vaccine) 1 each IM ONETIME ONE Stop: 07/27/19 19:06 Nitrofurantoin Macrocrystals (Macrobid) 100 mg PO BID [facility] Last Admin: 07/27/19 21:19 Dose: 100 mg Ondansetron HCl (Zofran) 4 mg IVPUSH Q4H PRN PRN Reason: Nausea Oseltamivir Phosphate (Tamiflu) 75 mg PO BID [facility] Last Admin: 07/27/19 21:19 Dose: 75 mg Potassium Chloride (Klor-Con M20) 20 meq PO BID [facility] Last Admin: 07/27/19 21:19 Dose: 20 meq Assessment/Plan Comment:: 23yo at 16w0d admitted to OBS with influenza and dehydration. Labs showed hypokalemia and mildly elevated LFTs. - vitals stable, afebrile currently - K low at 2.9, asymptomatic. Will replace with 40mEq of K IV at 10mEq an hour and 20mEq PO BID - AST and ALT both 70s, likely from illness and dehydration, will repeat in AM - continue tamiflu and macrobid - zofran IV PRN Plan for discharge in AM if stable
[2019-07-27] MEDS: Potassium Chloride Riders 20 MEQ in Premix Bag 1 BAG IV SCH (22:20)
[2019-07-27] MEDS: Dextrose 5%-0.9% NaCl 1,000 ML IV SCH (22:32)
[2019-07-28] MEDS: Potassium Chloride Riders 20 MEQ in Premix Bag 1 BAG IV SCH (00:56)
[2019-07-28 06:07] LABS: BLOOD UREA NITROGEN,BUN 3 mg/dL (7.0-18.0); CARBON DIOXIDE,CO2 22.2 mmol/L (21.0-32.0); CHLORIDE,CL 108 mmol/L (98-107); GLUCOSE RANDOM 94 mg/dL (74-106); POTASSIUM,K 3.5 mmol/L (3.5-5.1); SODIUM,NA 141 mmol/L (136-145)
[2019-07-28] MEDS: Nitrofurantoin Monohydrate/Macrocrystalline 100 MG Cap PO SCH (08:26)
[2019-07-28] MEDS: Potassium Chloride 20 MEQ Tab.ER PO SCH (08:28)
[2019-07-28] MEDS: Oseltamivir 75 MG Cap PO SCH (08:28)
[2019-07-28] MEDS ORDERED: Ondansetron 4 MG/2 ML SDV IVPUSH PRN (08:38)
[2019-07-28] MEDS: Dextrose 5%-0.9% NaCl 1,000 ML IV SCH (08:44)
[2019-07-28] MEDS ORDERED: Magnesium Oxide 400 MG Tab PO SCH (09:00)
--- NOTE | 2019-07-28 09:00 | PCM.PN ---
- General Info Date of Service: 07/28/19 Functional Status: Reports: Ambulating, Urinating, Other (Having nausea still, was able to tolerate clears. Having cough and sore throat.) - Review of Systems General: Reports: Fatigue, Malaise Pulmonary: Reports: Cough Cardiovascular: Reports: No Symptoms Gastrointestinal: Reports: Decreased Appetite, Nausea Genitourinary: Reports: No Symptoms Musculoskeletal: Reports: No Symptoms Skin: Reports: No Symptoms Neurological: Reports: No Symptoms Psychiatric: Reports: No Symptoms - Patient Data Vitals - Most Recent: Last Vital Signs Temp 36.2 C 07/28/19 08:25 Pulse 85 07/28/19 08:25 Resp 16 07/28/19 08:25 BP 107/60 07/28/19 08:25 Pulse Ox 97 07/28/19 08:25 Weight - Most Recent: 222 lb 7.143 oz I&O - Last 24 Hours: Intake & Output 07/27/19 07/28/19 07/28/19 22:59 06:59 14:59 Intake Total 755 Output Total 450 Balance 305 Lab Results Last 24 Hours: Laboratory Results - last 24 hr 07/28/19 07/28/19 Range/Units 04:46 04:46 WBC 2.44 L (4.0-11.0) K/uL RBC 3.88 L (4.30-5.90) M/uL Hgb 10.8 L (12.0-16.0) g/dL Hct 31.7 L (36.0-46.0) % MCV 81.7 (80.0-98.0) fL MCH 27.8 (27.0-32.0) pg MCHC 34.1 (31.0-37.0) g/dL RDW Std Deviation 42.3 (28.0-62.0) fl RDW Coeff of Roney 14 (11.0-15.0) % Plt Count 174 (150-400) K/uL MPV 10.20 (7.40-12.00) fL Nucleated RBC % 0.0 /100WBC Nucleated RBCs # 0 K/uL Sodium 141 (136-145) mmol/L Potassium 3.5 (3.5-5.1) mmol/L Chloride 108 H (98-107) mmol/L Carbon Dioxide 22.2 (21.0-32.0) mmol/L BUN 3 L (7.0-18.0) mg/dL Creatinine 0.4 L (0.6-1.0) mg/dL Est Cr Clr Drug Dosing 180.94 mL/min Estimated GFR (MDRD) > 60.0 ml/min Glucose 94 (74-106) mg/dL Calcium 8.2 L (8.5-10.1) mg/dL Magnesium 1.6 L (1.8-2.4) mg/dL Total Bilirubin 0.9 (0.2-1.0) mg/dL AST 69 H (15-37) IU/L ALT 73 H (14-63) IU/L Alkaline Phosphatase 88 (46-116) U/L Total Protein 6.2 L (6.4-8.2) g/dL Albumin 2.6 L (3.4-5.0) g/dL Globulin 3.6 (2.6-4.0) g/dL Albumin/Globulin Ratio 0.7 L (0.9-1.6) Med Orders - Current: Current Medications Acetaminophen (Tylenol) 650 mg PO Q4H PRN PRN Reason: Pain (Mild 1-3)/fever Dextrose/Sodium Chloride (Dextrose 5%-Normal Saline) 1,000 mls @ 100 mls/hr IV ASDIRECTED [facility] Last Admin: 07/28/19 08:44 Dose: 100 mls/hr Influenza Virus Vaccine (Fluzone Quad [id number] Syringe) 60 mcg IM .ONCE ONE Stop: 07/28/19 10:01 Magnesium Oxide (Magnesium Oxide) 800 mg PO DAILY [facility] Last Admin: 07/28/19 08:27 Dose: 800 mg Nitrofurantoin Macrocrystals (Macrobid) 100 mg PO BID [facility] Last Admin: 07/28/19 08:26 Dose: 100 mg Ondansetron HCl (Zofran) 8 mg IVPUSH Q6H PRN PRN Reason: Nausea/Vomiting Last Admin: 07/28/19 08:45 Dose: 8 mg Oseltamivir Phosphate (Tamiflu) 75 mg PO BID [facility] Last Admin: 07/28/19 08:28 Dose: 75 mg Potassium Chloride (Klor-Con M20) 20 meq PO BID [facility] Last Admin: 07/28/19 08:28 Dose: 20 meq Discontinued Medications Potassium Chloride 20 meq/ (Premix) 50 mls @ 25 mls/hr IV Q2H JETT Stop: 07/28/19 01:59 Last Admin: 07/28/19 00:56 Dose: 25 mls/hr Influenza Virus Vaccine (Pharmacy To Dose - Influenza Vaccine) 1 each IM ONETIME ONE Stop: 07/27/19 19:06 Ondansetron HCl (Zofran) 4 mg IVPUSH Q4H PRN PRN Reason: Nausea Last Admin: 07/27/19 22:16 Dose: 4 mg - Exam General: Alert, Oriented, Cooperative, No Acute Distress HEENT: Pupils Equal, Pupils Reactive Neck: Supple, Trachea Midline Lungs: Normal Respiratory Effort GI/Abdominal Exam: Soft, Non-Tender, No Distention Back Exam: Normal Inspection, Full Range of Motion Extremities: Normal Inspection, Normal Range of Motion, Non-Tender, No Pedal Edema Skin: Warm, Dry, Intact Neurological: No New Focal Deficit Psy/Mental Status: Alert, Normal Affect, Normal Mood Sepsis Event Note - Evaluation Sepsis Screening Result: No Definite Risk - Focused Exam Vital Signs: Vital Signs Temp Pulse Resp BP Pulse Ox 07/28/19 08:25 36.2 C 85 16 107/60 97 07/28/19 04:17 36.1 C 79 16 96/55 L 97 07/27/19 23:59 36.4 C 110 H 18 122/75 97 Date Exam was Performed: 07/28/19 Time Exam was Performed: 08:54 - Problem List Review Problem List Initiated/Reviewed/Updated: Yes - My Orders Last 24 Hours: My Active Orders 07/27/19 19:05 Influenza Vaccine Charge [RC] .DISCHARGE 07/27/19 19:12 Patient Status [ADT] Routine Ambulate [RC] ASDIRECTED Oxygen Therapy [RC] PRN VTE/DVT Education [RC] PER UNIT ROUTINE Vital Signs [RC] Q4H Acetaminophen [Tylenol] 650 mg PO Q4H PRN Resuscitation Status Routine 07/27/19 19:14 Pulse Oximetry [RC] Q4HR 07/27/19 21:00 Nitrofurantoin [place]/Macrocryst [Macrobid] 100 mg PO BID Oseltamivir [Tamiflu] 75 mg PO BID Potassium Chloride [Klor-Con M20] 20 meq PO BID 07/27/19 21:30 Dextrose 5%-0.9% NaCl [Dextrose 5%-Normal Saline] 1,000 ml IV ASDIRECTED 07/27/19 Dinner Regular Diet [DIET] 07/28/19 08:38 Ondansetron [Zofran] 8 mg IVPUSH Q6H PRN 07/28/19 09:00 Magnesium Oxide 800 mg PO DAILY 07/28/19 10:00 FLU Vacc [id number](6MOS+)/PF [Fluzone Quad Syringe] 60 mcg IM .ONCE ONE - Plan Plan:: - vitals stable, afebrile overnight - WBC of 2.44, continues to be borderline low. No bands. - K improved this AM, 3.5. Continue PO supplements. - Mg low at 1.6, will start PO magnesium - AST of 69 and ALT of 73, stable, likely from illness and dehydration - continue tamiflu and macrobid - zofran IV PRN Plan for discharge today when able to tolerate PO intake
[2019-07-28] MEDS ORDERED: FLU Vacc QS2019-20(6MOS+)/PF 60 MCG/0.5 ML SYRINGE IM ONE (10:00)
== END 2019-07-28 15:31 | disposition home or self-care (01) ==
LOC: MW.MS 18:32
PROVIDERS: ADMIT Obstetrics & Gynecology; ATTEND Obstetrics & Gynecology
DX: O99.512 Diseases of the respiratory system complicating pregnancy, second trimester (principal); J10.1 Influenza due to other identified influenza virus with other respiratory manifestations; O99.282 Endocrine, nutritional and metabolic diseases complicating pregnancy, second trimester; E03.9 Hypothyroidism, unspecified; E86.0 Dehydration; E87.6 Hypokalemia; O99.89 Other specified diseases and conditions complicating pregnancy, childbirth and the puerperium; R79.89 Other specified abnormal findings of blood chemistry; R82.71 Bacteriuria; Z23 Encounter for immunization; Z3A.16 16 weeks gestation of pregnancy; Z79.899 Other long term (current) drug therapy; Z88.8 Allergy status to other drugs, medicaments and biological substances; Z79.82 Long term (current) use of aspirin
CPT/HCPCS: 36415; 80053; 83735; 85027; 90471; 90686; A9270; J2405; J3480; J7042; 96361; 96365; 96366; 96375; 96376; G0008; G0378; G0379

== ENCOUNTER 2020-01-06 22:56 | Inpatient (IN) | payer BC ==
[2020-01-06] MEDS: Lactated Ringers 1,000 ML IV SCH (23:15)
[2020-01-06] MEDS ORDERED: Butorphanol 1 MG/ML SDV ONE (23:18)
[2020-01-06] MEDS ORDERED: Oxytocin/0.9 % Sodium Chloride 30 UNIT/500 ML BAG IV SCH (23:45)
[2020-01-06] MEDS ORDERED: Butorphanol 1 MG/ML SDV IVPUSH PRN (23:57)
[2020-01-06] MEDS ORDERED: Sodium Chloride 0.9% 10 ML Syringe FLUSH PRN (23:57)
[2020-01-06] MEDS ORDERED: Tranexamic Acid 1,000 MG in Sodium Chloride 0.9% 100 ML IV PRN (23:57)
[2020-01-06] MEDS ORDERED: Lidocaine 1% 50 ML MDV INJECT PRN (23:57)
[2020-01-06] MEDS ORDERED: Sodium Chloride 0.9% 10 ML SDV IV PRN (23:57)
[2020-01-06] MEDS ORDERED: Ondansetron 4 MG/2 ML SDV IVPUSH PRN (23:57)
[2020-01-06] MEDS ORDERED: Misoprostol 200 MCG Tab PO PRN (23:57)
[2020-01-06] MEDS ORDERED: Sodium Chloride 0.9% 2.5 ML Syringe FLUSH PRN (23:57)
[2020-01-06] MEDS ORDERED: Water For Irrigation,Sterile 1,000 ML Container IRR PRN (23:57)
[2020-01-06] MEDS ORDERED: Methylergonovine 0.2 MG/1 ML Amp IM PRN (23:57)
[2020-01-06] MEDS ORDERED: Carboprost Tromethamine 250 MCG/1 ML Amp IM PRN (23:57)
[2020-01-07] MEDS: Lactated Ringers 1,000 ML IV SCH ×3 (01:05→05:13)
[2020-01-07] MEDS ORDERED: Ropivacaine HCl/PF 100 ML ONE (01:22)
[2020-01-07] MEDS ORDERED: fentaNYL 100 MCG/2 ML SDV ONE (01:22)
--- NOTE | 2020-01-07 03:19 | PCM.PREANE ---
Preanesthetic Assessment - Anesthesia/Transfusion/Family Hx Anesthesia History: No Prior Anesthesia Family History of Anesthesia Reaction: No Transfusion History: No Prior Transfusion(s) Intubation History: Unknown - Review of Systems General: No Symptoms Pulmonary: No Symptoms Cardiovascular: No Symptoms Gastrointestinal: Abdominal Pain (labor pain) Neurological: No Symptoms Other: Reports: None - Physical Assessment ASA Class: 2 Mental Status: Alert & Oriented x3 Airway Class: Mallampati = 1 Dentition: Reports: Normal Dentition Thyro-Mental Finger Breadths: 3 Mouth Opening Finger Breadths: 3 ROM/Head Extension: Full Lungs: Clear to Auscultation, Normal Respiratory Effort Cardiovascular: Regular Rate, Regular Rhythm - Lab Values: Laboratory Last Values WBC 15.16 K/uL (4.0-11.0) H 01/06/20 00:00 RBC 4.32 M/uL (4.30-5.90) 01/06/20 00:00 Hgb 11.5 g/dL (12.0-16.0) L 01/06/20 00:00 Hct 34.4 % (36.0-46.0) L 01/06/20 00:00 MCV 79.6 fL (80.0-98.0) L 01/06/20 00:00 MCH 26.6 pg (27.0-32.0) L 01/06/20 00:00 MCHC 33.4 g/dL (31.0-37.0) 01/06/20 00:00 RDW Std Deviation 42.0 fl (28.0-62.0) 01/06/20 00:00 RDW Coeff of Roney 15 % (11.0-15.0) 01/06/20 00:00 Plt Count 182 K/uL (150-400) 01/06/20 00:00 MPV 12.50 fL (7.40-12.00) H 01/06/20 00:00 COVID-19 (RYLAN) NEGATIVE (NEGATIVE) 01/06/20 23:38 Blood Type O POSITIVE 01/06/20 00:00 Antibody Screen NEGATIVE 01/06/20 00:00 - Allergies Allergies/Adverse Reactions: Allergies Allergy/AdvReac Type Severity Reaction Status Date / Time prochlorperazine Allergy Anxiety Verified 07/27/19 20:02 [From Compazine] - Blood Blood Available: No - Anesthesia Plan Pre-Op Medication Ordered: None - Acknowledgements Anesthesia Type Planned: Epidural Pt an Appropriate Candidate for the Planned Anesthesia: Yes Alternatives and Risks of Anesthesia Discussed w Pt/Guardian: Yes Pt/Guardian Understands and Agrees with Anesthesia Plan: Yes PreAnesthesia Questionnaire HEENT History: Reports: Impaired Vision, Other (See Below) Other HEENT History: Wears glasses. 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: Musculoskeletal History: Reports: None Neurological History: Reports: None Psychiatric History: Reports: None Endocrine/Metabolic History: Reports: Hypothyroidism Hematologic History: Reports: None Immunologic History: Reports: None Oncologic (Cancer) History: Reports: None Dermatologic History: Reports: None - Infectious Disease History Infectious Disease History: Reports: None - Past Surgical History Head Surgeries/Procedures: Reports: None HEENT Surgical History: Reports: Tonsillectomy Cardiovascular Surgical History: Reports: None GI Surgical History: Reports: Appendectomy Endocrine Surgical History: Reports: None - HOME MEDS Home Medications: Home Meds Levothyroxine [Synthroid] 137 mcg PO ACBREAKFAST 08/17/18 [History] Aspirin [Low Dose Aspirin EC] 81 mg PO DAILY 07/16/19 [History] Nitrofurantoin Monohyd/M-Cryst [Macrobid 100 mg Capsule] 100 mg PO BID 5 Days #10 capsule 07/25/19 [Rx] Oseltamivir [Tamiflu] 75 mg PO BID 5 Days #10 cap 07/25/19 [Rx] Acetaminophen 650 mg PO Q6HR PRN 07/27/19 [History] Ondansetron [Zofran ODT] 4 mg PO Q6H PRN #20 tab.dis 07/28/19 [Rx] Potassium Chloride [Klor-Con M20] 20 meq PO DAILY #14 tab.er 07/28/19 [Rx] - CURRENT (IN HOUSE) MEDS Current Meds: Current Medications Butorphanol Tartrate (Stadol) 1 mg IVPUSH Q1H PRN PRN Reason: Pain Last Admin: 01/07/20 01:03 Dose: 1 mg Documented by: Carboprost Tromethamine (Hemabate Ds) 250 mcg IM ASDIRECTED PRN PRN Reason: Post Hemorrhage Lactated Ringer's (Ringers, Lactated) 1,000 mls @ 150 mls/hr IV ASDIRECTED [facility], 1928–1983 Last Admin: 01/07/20 02:24 Dose: 999 mls/hr Documented by: Oxytocin/Sodium Chloride (Oxytocin 30 Unit/500 Ml-Ns) 30 unit in 500 mls @ 999 mls/hr IV TITRATE [facility], [facility]–1983 Tranexamic Acid 1,000 mg/ (Sodium Chloride) 110 mls @ 660 mls/hr IV ONETIME PRN PRN Reason: Bleeding Lidocaine HCl (Xylocaine 1%) 50 ml INJECT ONETIME PRN PRN Reason: Laceration repair Methylergonovine Maleate (Methergine) 0.2 mg IM ASDIRECTED PRN PRN Reason: Post Hemorrhage Misoprostol (Cytotec) 200 mcg PO ONETIME PRN PRN Reason: Post Hemorrhage Ondansetron HCl (Zofran) 4 mg IVPUSH Q6H PRN PRN Reason: Nausea/Vomiting Sodium Chloride (Saline Flush) 10 ml FLUSH ASDIRECTED PRN PRN Reason: Keep Vein Open Sodium Chloride (Saline Flush) 2.5 ml FLUSH ASDIRECTED PRN PRN Reason: Keep Vein Open Sodium Chloride (Normal Saline) 10 ml IV ASDIRECTED PRN PRN Reason: IV Use Sterile Water (Sterile Water For Irrigation) 1,000 ml IRR ASDIRECTED PRN PRN Reason: delivery Discontinued Medications Butorphanol Tartrate (Stadol) Confirm Administered Dose 1 mg .ROUTE .STK-MED ONE Stop: 01/06/20 23:19 Last Admin: 01/06/20 23:24 Dose: 1 mg Documented by: Fentanyl (Sublimaze) Confirm Administered Dose 200 mcg .ROUTE .STK-MED ONE Stop: 01/07/20 01:23 Ropivacaine (Naropin 0.2%) Confirm Administered Dose 100 mls @ as directed .ROUTE .STK-MED ONE Stop: 01/07/20 01:23
[2020-01-07] MEDS ORDERED: Benzocaine/Menthol 20%-0.5% Spray 78 GM Cannister TOP PRN (08:08)
[2020-01-07] MEDS ORDERED: Acetaminophen 500 MG Tab PO PRN (08:08)
[2020-01-07] MEDS ORDERED: Docusate Sodium 100 MG Cap PO PRN (08:08)
[2020-01-07] MEDS ORDERED: Ibuprofen 400 MG Tab PO PRN (08:08)
[2020-01-07] MEDS ORDERED: Bisacodyl 10 MG Supp RECTAL PRN (08:08)
[2020-01-07] MEDS ORDERED: Lanolin 100% Cream 7 GM Tube TOP PRN (08:08)
--- NOTE | 2020-01-07 08:31 | PCM.DEL ---
L & D Note - General Info Date of Service: 01/07/20 Mother's Due Date: 01/10/20 - Delivery Note Labor: Spontaneous Delivery Outcome: Livebirth Infant Delivery Method: Spontaneous Vaginal Delivery-Single Delivery Mode: Spontaneous Presentation: Left Occiput Anterior (JEFE) Nuchal Cord: Present Anesthesia Type: Epidural Amniotic Fluid Description: Clear Episiotomy Type: Midline Laceration: 1st Degree Suture type: Vicryl Suture size: 3-0 Placenta: Intact, Spontaneous Cord: 3 Vessels Estimated Blood Loss: 200 Resuscitation Needed: No [place]: Bulb Syringe, Stimulated, Warmed Provider: Jeison Diallo Score 1 min: 9 Score 5 min: 10 Second Stage Interventions: Reports: Encouragement Given Delivery Comments (Free Text/Narrative):: Patient is a 24 year old O+ with negative antibody screen, GBS -, rubella immune with a history of hypothyroidism who presented at 2300 on 01/06/20 for evaluation of active labor. She received routine care She reported SROM yesterday evening with clear fluid. On admission she was 6/90/-2. The patient received an epidural at 0130. She was fully dilated at 0350 and began pushing around 0515. A 3090 g female was delivered at 0729 via in JEFE position with a nuchal cord x 1. She was placed on the patient's abdomen, was suctioned, warmed and stimulated. Apgars were 9/10. Venous cord blood was obtained, and the placenta was delivered at 0742. The placenta was intact and a 3 vessel cord was present. A single 1st degree laceration to the vaginal mucosa was repaired with 3-0 Vicryl. Arterial cord blood and cord blood were obtained after delivery of the placenta. - General Info Date of Service: 01/07/20 - Patient Data Lab Results Last 24 Hours: Laboratory Results - last 24 hr 01/06/20 01/06/20 01/06/20 Range/Units 00:00 00:00 23:38 WBC 15.16 H (4.0-11.0) K/uL RBC 4.32 (4.30-5.90) M/uL Hgb 11.5 L (12.0-16.0) g/dL Hct 34.4 L (36.0-46.0) % MCV 79.6 L (80.0-98.0) fL MCH 26.6 L (27.0-32.0) pg MCHC 33.4 (31.0-37.0) g/dL RDW Std Deviation 42.0 (28.0-62.0) fl RDW Coeff of Roney 15 (11.0-15.0) % Plt Count 182 (150-400) K/uL MPV 12.50 H (7.40-12.00) fL COVID-19 (RYLAN) NEGATIVE (NEGATIVE) Blood Type O POSITIVE Antibody Screen NEGATIVE Med Orders - Current: Current Medications Acetaminophen (Tylenol Extra Strength) 500 mg PO Q4H PRN PRN Reason: Pain Acetaminophen (Tylenol Extra Strength) 1,000 mg PO Q4H PRN PRN Reason: Pain Benzocaine/Menthol (Dermoplast Pain Relief 20%-0.5% [place]) 78 gm TOP ASDIRECTED PRN PRN Reason: Perineal Comfort Measure Bisacodyl (Dulcolax) 10 mg RECTAL ONETIME PRN PRN Reason: Constipation Docusate Sodium (Colace) 100 mg PO BID PRN PRN Reason: Constipation Emollient Ointment (Lansinoh Hpa) 0 gm TOP ASDIRECTED PRN PRN Reason: Sore Nipples Ibuprofen (Motrin) 400 mg PO Q4H PRN PRN Reason: Pain Ibuprofen (Motrin) 800 mg PO Q6H PRN PRN Reason: Pain Levothyroxine Sodium (Levothyroxine) 112 mcg PO ACBREAKFAST JETT Levothyroxine Sodium (Levothyroxine) 25 mcg PO ACBRK JETT Witch Светлана (Tucks) 1 pad TOP ASDIRECTED PRN PRN Reason: comfort care Discontinued Medications Butorphanol Tartrate (Stadol) Confirm Administered Dose 1 mg .ROUTE .STK-MED ONE Stop: 01/06/20 23:19 Last Admin: 01/06/20 23:24 Dose: 1 mg Documented by: Butorphanol Tartrate (Stadol) 1 mg IVPUSH Q1H PRN PRN Reason: Pain Last Admin: 01/07/20 01:03 Dose: 1 mg Documented by: Carboprost Tromethamine (Hemabate Ds) 250 mcg IM ASDIRECTED PRN PRN Reason: Post Hemorrhage Fentanyl (Sublimaze) Confirm Administered Dose 200 mcg .ROUTE .STK-MED ONE Stop: 01/07/20 01:23 Lactated Ringer's (Ringers, Lactated) 1,000 mls @ 150 mls/hr IV ASDIRECTED JETT Last Admin: 01/07/20 05:13 Dose: 150 mls/hr Documented by: Oxytocin/Sodium Chloride (Oxytocin 30 Unit/500 Ml-Ns) 30 unit in 500 mls @ 999 mls/hr IV TITRATE JETT Tranexamic Acid 1,000 mg/ (Sodium Chloride) 110 mls @ 660 mls/hr IV ONETIME PRN PRN Reason: Bleeding Ropivacaine (Naropin 0.2%) Confirm Administered Dose 100 mls @ as directed .ROUTE .STtwo.42.solutions-MED ONE Stop: 01/07/20 01:23 Lidocaine HCl (Xylocaine 1%) 50 ml INJECT ONETIME PRN PRN Reason: Laceration repair Methylergonovine Maleate (Methergine) 0.2 mg IM ASDIRECTED PRN PRN Reason: Post Hemorrhage Misoprostol (Cytotec) 200 mcg PO ONETIME PRN PRN Reason: Post Hemorrhage Ondansetron HCl (Zofran) 4 mg IVPUSH Q6H PRN PRN Reason: Nausea/Vomiting Sodium Chloride (Saline Flush) 10 ml FLUSH ASDIRECTED PRN PRN Reason: Keep Vein Open Sodium Chloride (Saline Flush) 2.5 ml FLUSH ASDIRECTED PRN PRN Reason: Keep Vein Open Sodium Chloride (Normal Saline) 10 ml IV ASDIRECTED PRN PRN Reason: IV Use Sterile Water (Sterile Water For Irrigation) 1,000 ml IRR ASDIRECTED PRN PRN Reason: delivery - Problem List & Annotations (1) Normal vaginal delivery SNOMED Code(s): 87411771, 330127199 Code(s): O80 - ENCOUNTER FOR FULL-TERM UNCOMPLICATED DELIVERY Status: Acute Current Visit: Yes (2) Hypothyroidism SNOMED Code(s): 85763140 Code(s): E03.9 - HYPOTHYROIDISM, UNSPECIFIED Status: Acute Current Visit: Yes - Problem List Review Problem List Initiated/Reviewed/Updated: Yes - Assessment Assessment:: of a female weighing 3090 g to a 24 year old GBS - O+ with negative antibody screen, Rubella immune female with hypothyroidism. Apgars were 9/10 - Plan Plan:: 1. GBS negative 2. Rubella immune 3. O+ with negative antibody screen 4. Hypothyroidism - continue with levothyroxine as prescribed 5. as tolerated 6. care per unit routine
[2020-01-07] MEDS: Witch Hazel Medicated Pads 40/Jar TOP PRN (12:20)
[2020-01-07] MEDS: Acetaminophen 500 MG Tab PO PRN ×2 (12:21→18:56)
[2020-01-07] MEDS: Ibuprofen 800 MG Tab PO PRN ×2 (12:21→18:55)
--- NOTE | 2020-01-07 12:45 | PCM48HPAN ---
Post Anesthesia Note - EVALUATION WITHIN 48HRS OF ANESTHETIC Vital Signs in Normal Range: Yes Patient Participated in Evaluation: Yes Respiratory Function Stable: Yes Airway Patent: Yes Cardiovascular Function Stable: Yes Hydration Status Stable: Yes (Taking PO fluids and food without difficulty) Pain Control Satisfactory: Yes (Reports 2/10 pain with movement, none at rest, satisfactory pain control.) Nausea and Vomiting Control Satisfactory: Yes (Denies nausea) Mental Status Recovered: Yes - COMMENTS/OBSERVATIONS Free Text/Narrative:: Ambulating well, reports full return of strength and sensation to BLE
--- NOTE | 2020-01-07 14:04 | OR ---
SURGEON: Piper Heaton M.D. DATE OF PROCEDURE: 01/07/2020 PREOPERATIVE DIAGNOSES: 39 and 5/7 weeks' intrauterine , active spontaneous labor. POSTOPERATIVE DIAGNOSES: 39 and 5/7 weeks' intrauterine , active spontaneous labor. PROCEDURE: Term spontaneous vaginal delivery, repair of vaginal laceration. PRIMARY SURGEON: Piper Heaton MD DRUG AND ALCOHOL COUNSELOR: Georges John MS4 ANESTHESIA: Epidural. ESTIMATED BLOOD LOSS: Less than 200 mL. FINDINGS: Liveborn female, score of 9 and 10, weighing 3090 g. Placenta spontaneous, Schultze intact with 3 vessels. Small vaginal laceration at 6 o'clock, repaired. COMPLICATIONS: None known. Mother and baby are in LDR in good condition. BRIEF HISTORY: This is a 24-year-old female, G1, P0. She presents at 39 and 5/7 weeks' gestation, having had prodromal labor for approximately 36 hours followed by spontaneous rupture of membranes. She presented 3 cm dilated. She changed to 6 cm over the initial 2 hours. She received an epidural for pain control. She had category 1 heart tones. She progressed to complete. DESCRIPTION OF PROCEDURE: With the patient in dorsal lithotomy position, the patient pushed over an hour and a half time period to a 5+ station, at which time the head was delivered spontaneously and atraumatically over the perineum with support with subsequent delivery of the infant's shoulders and body without any difficulty. The infant was bulb suctioned by nose and mouth and the was handed to the mother in the presence of nurse attending delivery. The infant was a liveborn female, score of 9 and 10, weighing 3090 g. After the cord had ceased to pulsate, it was doubly clamped and cut. Cord blood was collected for cord ABGs as well as routine cord blood sampling. Pitocin was initiated after delivery of the infant to assist with delivery of the placenta which was delivered spontaneously. Schultze intact with 3 vessels. Upon inspection of the pelvis and perineum, there were no periurethral, vaginal sidewall, cervical, or rectal lacerations. There was a small vaginal abrasion at 12 o'clock that was repaired using a running locked suture of 3-0 Vicryl. Final sponge, needle, and instrument counts were correct. There were no known complications. Mother and baby remained in LDR in good condition. TIMMY / DIAMOND /[id number]
[2020-01-08] MEDS: Ibuprofen 800 MG Tab PO PRN ×2 (04:56→14:33)
[2020-01-08] MEDS ORDERED: Levothyroxine 25 MCG Tab PO SCH (07:30)
[2020-01-08] MEDS ORDERED: Levothyroxine 112 MCG Tab PO SCH (07:30)
--- NOTE | 2020-01-08 08:19 | PCM.PNPP ---
- General Info Date of Service: 01/08/20 Admission Dx/Problem (Free Text): of a female weighing 3090 g to a 24 year old GBS - O+ with negative antibody screen, Rubella immune female with hypothyroidism. Apgars were 9/10 Subjective Update: Patient is doing well. She reports a decrease in bleeding, has been able to ambulate and has been able to urinate. She has not yet defecated; she stated that she tried but then got nervous. She is passing gas. Pain is controlled. She is well. She is unsure what she would like to do for contraception at this time. Functional Status: Reports: Pain Controlled, Tolerating Diet, Ambulating, Urinating - Review of Systems General: Reports: No Symptoms HEENT: Reports: No Symptoms Pulmonary: Reports: No Symptoms Cardiovascular: Reports: No Symptoms Gastrointestinal: Reports: No Symptoms Genitourinary: Reports: No Symptoms Musculoskeletal: Reports: No Symptoms Skin: Reports: No Symptoms Neurological: Reports: No Symptoms Psychiatric: Reports: No Symptoms - General Info Date of Service: 01/08/20 - Patient Data Vital Signs - Most Recent: Last Vital Signs Temp 97.9 F 01/08/20 04:50 Pulse 72 01/08/20 04:50 Resp 16 01/08/20 04:50 BP 120/79 01/08/20 04:50 Pulse Ox 95 01/08/20 04:50 Weight - Most Recent: 236 lb Lab Results - Last 24 Hours: Laboratory Results - last 24 hr 01/07/20 01/08/20 Range/Units 07:29 06:35 Hgb 10.1 L (12.0-16.0) g/dL Hct 30.8 L (36.0-46.0) % Cord ABG pH TNP Cord ABG Base Excess TNP Cord VBG pH 7.301 (7.25-7.45) Cord VBG Base Excess -8 (-10--2) Med Orders - Current: Current Medications Acetaminophen (Tylenol Extra Strength) 500 mg PO Q4H PRN PRN Reason: Pain Acetaminophen (Tylenol Extra Strength) 1,000 mg PO Q4H PRN PRN Reason: Pain Last Admin: 01/07/20 18:56 Dose: 1,000 mg Documented by: Benzocaine/Menthol (Dermoplast Pain Relief 20%-0.5% [place]) 78 gm TOP ASDIRECTED PRN PRN Reason: Perineal Comfort Measure Last Admin: 01/07/20 12:21 Dose: 1 canister Documented by: Bisacodyl (Dulcolax) 10 mg RECTAL ONETIME PRN PRN Reason: Constipation Docusate Sodium (Colace) 100 mg PO BID PRN PRN Reason: Constipation Emollient Ointment (Lansinoh Hpa) 0 gm TOP ASDIRECTED PRN PRN Reason: Sore Nipples Last Admin: 01/07/20 12:22 Dose: 1 tube Documented by: Ibuprofen (Motrin) 400 mg PO Q4H PRN PRN Reason: Pain Ibuprofen (Motrin) 800 mg PO Q6H PRN PRN Reason: Pain Last Admin: 01/08/20 04:56 Dose: 800 mg Documented by: Levothyroxine Sodium (Levothyroxine) 112 mcg PO ACBREAKFAST [facility] Levothyroxine Sodium (Levothyroxine) 25 mcg PO ACBRK [facility] Michelle Светлана (Tucks) 1 pad TOP ASDIRECTED PRN PRN Reason: comfort care Last Admin: 01/07/20 12:20 Dose: 1 unit Documented by: Discontinued Medications Butorphanol Tartrate (Stadol) Confirm Administered Dose 1 mg .ROUTE .STK-MED ONE Stop: 01/06/20 23:19 Last Admin: 01/06/20 23:24 Dose: 1 mg Documented by: Butorphanol Tartrate (Stadol) 1 mg IVPUSH Q1H PRN PRN Reason: Pain Last Admin: 01/07/20 01:03 Dose: 1 mg Documented by: Carboprost Tromethamine (Hemabate Ds) 250 mcg IM ASDIRECTED PRN PRN Reason: Post Hemorrhage Fentanyl (Sublimaze) Confirm Administered Dose 200 mcg .ROUTE .STK-MED ONE Stop: 01/07/20 01:23 Lactated Ringer's (Ringers, Lactated) 1,000 mls @ 150 mls/hr IV ASDIRECTED [facility] Last Admin: 01/07/20 05:13 Dose: 150 mls/hr Documented by: Oxytocin/Sodium Chloride (Oxytocin 30 Unit/500 Ml-Ns) 30 unit in 500 mls @ 999 mls/hr IV TITRATE [facility] Last Admin: 01/07/20 07:32 Dose: 999 mls/hr Documented by: Tranexamic Acid 1,000 mg/ (Sodium Chloride) 110 mls @ 660 mls/hr IV ONETIME PRN PRN Reason: Bleeding Ropivacaine (Naropin 0.2%) Confirm Administered Dose 100 mls @ as directed .ROUTE .[facility] ONE Stop: 01/07/20 01:23 Lidocaine HCl (Xylocaine 1%) 50 ml INJECT ONETIME PRN PRN Reason: Laceration repair Methylergonovine Maleate (Methergine) 0.2 mg IM ASDIRECTED PRN PRN Reason: Post Hemorrhage Misoprostol (Cytotec) 200 mcg PO ONETIME PRN PRN Reason: Post Hemorrhage Ondansetron HCl (Zofran) 4 mg IVPUSH Q6H PRN PRN Reason: Nausea/Vomiting Sodium Chloride (Saline Flush) 10 ml FLUSH ASDIRECTED PRN PRN Reason: Keep Vein Open Sodium Chloride (Saline Flush) 2.5 ml FLUSH ASDIRECTED PRN PRN Reason: Keep Vein Open Sodium Chloride (Normal Saline) 10 ml IV ASDIRECTED PRN PRN Reason: IV Use Sterile Water (Sterile Water For Irrigation) 1,000 ml IRR ASDIRECTED PRN PRN Reason: delivery - Infant Interaction Infant Disposition, : [place] to Nursery Infant Interaction: Not Applicable Feeding: Attempted ; Nursed Fair/Poor Support Person: Significant Other - Recovery Exam Fundal Tone: Firm Fundal Level: 1 Fingerbreadths Below Umbilicus Fundal Placement: Midline Lochia Amount: Scant Lochia Color: Rubra/Red Perineum Description: Intact, Minimal Bruising/Swelling Episiotomy/Laceration: Approximated Bladder Status: Voiding Urinary Elimination: Voided - Exam General: Alert, Oriented HEENT: Pupils Equal, Pupils Reactive, EOMI Lungs: Clear to Auscultation, Normal Respiratory Effort Cardiovascular: Regular Rate, Regular Rhythm GI/Abdominal Exam: Normal Bowel Sounds, Non-Tender, No Organomegaly, No Distention Extremities: Normal Inspection, Non-Tender, Normal Capillary Refill Skin: Warm, Dry, Intact Neurological: No New Focal Deficit Psy/Mental Status: Alert, Normal Affect, Normal Mood - Problem List & Annotations (1) Normal vaginal delivery SNOMED Code(s): 71164913, 143061190 Code(s): O80 - ENCOUNTER FOR FULL-TERM UNCOMPLICATED DELIVERY Status: Acute Current Visit: Yes (2) Hypothyroidism SNOMED Code(s): 54632903 Code(s): E03.9 - HYPOTHYROIDISM, UNSPECIFIED Status: Acute Current Visit: Yes - Problem List Review Problem List Initiated/Reviewed/Updated: Yes - Assessment Assessment:: day 1 of a female weighing 3090 g to a 24 year old GBS - O+ with negative antibody screen, Rubella immune female with hypothyroidism. Apgars were 9/10 - Plan Plan:: 1. GBS negative 2. Rubella immune 3. O+ with negative antibody screen 4. Hypothyroidism - continue with levothyroxine as prescribed 5. as tolerated 6. care per unit routine 7. Discharge home at 24 hours pending power press tender evaluation of infant
[2020-01-08] MEDS: Acetaminophen 500 MG Tab PO PRN (14:34)
[2020-01-08] MEDS: Witch Hazel Medicated Pads 40/Jar TOP PRN (17:26)
== END 2020-01-08 17:30 | disposition home or self-care (01) | DRG 560 ==
LOC: MW.OB 22:56 → MW.OBCHECK 22:56 → MW.OB 23:57 → MW.OBCHECK 23:57 → OBSVTOIN 01-07 07:29 → MW.OB 01-07 12:18
PROVIDERS: ADMIT Obstetrics & Gynecology; ATTEND Obstetrics & Gynecology
PROC: 10E0XZZ Delivery of Products of Conception, External Approach (ICD-10-PCS; principal; 2020-01-07)
PROC: 0W8NXZZ Division of Female Perineum, External Approach (ICD-10-PCS; 2020-01-07)
PROC: 3E0R3BZ Introduction of Anesthetic Agent into Spinal Canal, Percutaneous Approach (ICD-10-PCS; 2020-01-07)
DX: O99.284 Endocrine, nutritional and metabolic diseases complicating childbirth (principal); E03.9 Hypothyroidism, unspecified; Z3A.39 39 weeks gestation of pregnancy; Z37.0 Single live birth; Z11.59 Encounter for screening for other viral diseases; O69.81X0 Labor and delivery complicated by cord around neck, without compression, not applicable or unspecified
CPT/HCPCS: 36415; 51702; 59025; 59409; 82803; 85014; 85018; 85027; 86592; 86850; 86900; 86901; A9270-GY; J0595; J2590; J2795; J3010; J7120; U0002

== ENCOUNTER 2020-02-10 00:04 | Emergency (ER) | payer SELFPAY ==
--- NOTE | 2020-02-10 00:47 | EDM.PDOC ---
ED HPI GENERAL MEDICAL PROBLEM - General Chief Complaint: Abdominal Pain Stated Complaint: UPPER ABDOMINAL PAIN Time Seen by Provider: 02/10/20 00:19 - History of Present Illness INITIAL COMMENTS - FREE TEXT/NARRATIVE: This patient has epigastric pain. The patient has pain in the epigastrium that started a week ago. It was self-limited. Yesterday it happened again it was self-limited. Today it happened and it is intermittent but continues and bothers her a great deal. It is in the epigastrium like pressure. It radiates to the back and is located in the back. It is worse when she breathes. When she has the pain she has trouble breathing. The patient is 1 month but not breast-feeding. The patient has a father who had thromboembolic disease. She has no fever or cough. The pain is not brought on by food or activity. History of present illness: [] Review of systems: As per history of present illness and below otherwise all systems reviewed and negative. Past medical history: As per history of present illness and as reviewed below otherwise noncontributory. Surgical history: As per history of present illness and as reviewed below otherwise noncontributory. Social history: No reported history of drug or alcohol abuse. Family history: As per history of present illness and as reviewed below otherwise noncontributory. Physical exam: Constitutional - well developed, well-nourished and in no acute distress HEENT - normocephalic, no evidence of trauma - external nose and mouth normal - no mass in neck and no JVD - mucosae moist EYES - full EOM, PERRL, no icterus - no evidence of inflammation, injection, or drainage Respiratory - no respiratory distress, equal bilateral expansion, lungs clear to auscultation and no abnormal lung sounds Cardiovascular - Regular Rhythm with S1 and S2 appreciated and no murmur, gallop or rub. GI -in the right upper quadrant. Abdomen soft without distension or organomegaly - normal bowel sounds - no guard or rebound Musculoskeletal thighs are nontender. No gross deformity of long bones or joints - no tenderness, swelling or edema Neurologic - Alert and oriented times four - CN II-XII grossly intact - motor sensory and coordination symmetrically normal Psychiatric - appropriate mood and affect with normal thought content Hematologic - No petechiae or purpura - mucosa appropriate color and sclera not pale - normal nail bed color and refill Integument - no rash or evidence of trauma - normal turgor Diagnostics: [] Therapeutics: [] Impression: [] Plan: [] Definitive disposition and diagnosis as appropriate pending reevaluation and review of above. epigastric Pain Score (Numeric/FACES): 8 - Related Data Allergies Allergy/AdvReac Type Severity Reaction Status Date / Time prochlorperazine Allergy Anxiety Verified 02/10/20 00:12 [From Compazine] Home Meds: Home Meds Levothyroxine [Synthroid] 137 mcg PO ACBREAKFAST 08/17/18 [History] Aspirin [Low Dose Aspirin EC] 81 mg PO DAILY 07/16/19 [History] Nitrofurantoin Monohyd/M-Cryst [Macrobid 100 mg Capsule] 100 mg PO BID 5 Days #10 capsule 07/25/19 [Rx] Oseltamivir [Tamiflu] 75 mg PO BID 5 Days #10 cap 07/25/19 [Rx] Acetaminophen 650 mg PO Q6HR PRN 07/27/19 [History] Ondansetron [Zofran ODT] 4 mg PO Q6H PRN #20 tab.dis 07/28/19 [Rx] Potassium Chloride [Klor-Con M20] 20 meq PO DAILY #14 tab.er 07/28/19 [Rx] Acetaminophen/HYDROcodone [[place] 325-5 MG] 2 tab PO Q4H PRN #14 tablet 02/10/20 [Rx] Ondansetron [Zofran] 4 mg PO Q4H PRN #10 tab 02/10/20 [Rx] Past Medical History HEENT History: Reports: Impaired Vision, Other (See Below) Other HEENT History: Wears glasses. 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: Musculoskeletal History: Reports: None Neurological History: Reports: None Psychiatric History: Reports: None Endocrine/Metabolic History: Reports: Hypothyroidism Insulin Pump Model and Finger Buff Sewer: None Hematologic History: Reports: None Immunologic History: Reports: None Oncologic (Cancer) History: Reports: None Dermatologic History: Reports: None - Infectious Disease History Infectious Disease History: Reports: None - Past Surgical History Head Surgeries/Procedures: Reports: None HEENT Surgical History: Reports: Tonsillectomy Cardiovascular Surgical History: Reports: None GI Surgical History: Reports: Appendectomy Endocrine Surgical History: Reports: None Social & Family History - Family History Family Medical History: Noncontributory HEENT: Reports: None Cardiac: Reports: Hypertension Respiratory: Reports: None GI: Reports: None : Reports: None OBGYN: Reports: None Musculoskeletal: Reports: None Neurological: Reports: None Psychiatric: Reports: None Endocrine/Metabolic: Reports: Diabetes, type II Hematologic: Reports: None Immunologic: Reports: None Dermatologic: Reports: None Oncologic: Reports: Ovarian, Thyroid - Tobacco Use Smoking Status *Q: Never Smoker - Caffeine Use Caffeine Use: Reports: Coffee, Soda - Recreational Drug Use Recreational Drug Use: No ED ROS GENERAL - Review of Systems Review Of Systems: Comprehensive ROS is negative, except as noted in HPI. ED EXAM, GENERAL - Physical Exam Exam: See Below Free Text/Narrative:: My physical exam is in the HPI EKG INTERPRETATION EKG Date: 02/10/20 Rhythm: NSR Rate (Beats/Min): 91 P-Wave: Present QRS: Normal ST-T: Normal Comparison: Other: (Compared to 07/25/2019) EKG Interpretation Comments: Normal EKG is my interpretation Course - Vital Signs Text/Narrative:: 2:42 AM patient said discomfort. The d-dimer was over the threshold and if the ultrasound had shown a DVT I would treat as pulmonary embolus. The ultrasound failed to do that and I have now come to the CT [facility] to rule out pulmonary embolus. Ultrasound failed to demonstrate a DVT. It did demonstrate a movable gallstone that was not blocking the duct. The gallbladder otherwise appeared normal. A CT angios was ordered and did not demonstrate a pulmonary embolus. There was an area that concerned me in views 34 and 35 on the coronal plane and I discussed this with Dr. Ramires the circulation assistant radiologist who reviewed it very carefully and assured me that he did not feel like there was any filling defect in the vessels in the lungs. Patient will be treated for biliary colic and referred to surgery clinic. Last Recorded V/S: Last Vital Signs Temp 97.5 F 02/10/20 04:10 Pulse 72 02/10/20 04:10 Resp 18 02/10/20 04:10 BP 99/54 L 02/10/20 04:10 Pulse Ox 98 02/10/20 04:10 - Orders/Labs/Meds Labs: Laboratory Tests 02/10/20 02/10/20 02/10/20 Range/Units 00:35 00:40 00:40 WBC 16.45 H (4.0-11.0) K/uL RBC 4.50 (4.30-5.90) M/uL Hgb 11.9 L (12.0-16.0) g/dL Hct 36.0 (36.0-46.0) % MCV 80.0 (80.0-98.0) fL MCH 26.4 L (27.0-32.0) pg MCHC 33.1 (31.0-37.0) g/dL RDW Std Deviation 42.0 (28.0-62.0) fl RDW Coeff of Roney 15 (11.0-15.0) % Plt Count 279 (150-400) K/uL MPV 11.00 (7.40-12.00) fL Neut % (Auto) 82.9 H (48.0-80.0) % Lymph % (Auto) 10.2 L (16.0-40.0) % [place] % (Auto) 6.6 (0.0-15.0) % Eos % (Auto) 0.2 (0.0-7.0) % Baso % (Auto) 0.1 (0.0-1.5) % Neut # (Auto) 13.6 H (1.4-5.7) K/uL Lymph # (Auto) 1.7 (0.6-2.4) K/uL [place] # (Auto) 1.1 H (0.0-0.8) K/uL Eos # (Auto) 0.0 (0.0-0.7) K/uL Baso # (Auto) 0.0 (0.0-0.1) K/uL D-Dimer, Quantitative 0.65 H (0.0-0.50) mg/L FEU Sodium (136-145) mmol/L Potassium (3.5-5.1) mmol/L Chloride (98-107) mmol/L Carbon Dioxide (21.0-32.0) mmol/L BUN (7.0-18.0) mg/dL Creatinine (0.6-1.0) mg/dL Est Cr Clr Drug Dosing mL/min Estimated GFR (MDRD) ml/min Glucose (74-106) mg/dL Calcium (8.5-10.1) mg/dL Total Bilirubin (0.2-1.0) mg/dL AST (15-37) IU/L ALT (14-63) IU/L Alkaline Phosphatase (46-116) U/L Troponin I (0.000-0.056) ng/mL Total Protein (6.4-8.2) g/dL Albumin (3.4-5.0) g/dL Globulin (2.6-4.0) g/dL Albumin/Globulin Ratio (0.9-1.6) Lipase (73-393) U/L Urine Color YELLOW Urine Appearance SLT CLOUDY Urine pH 6.0 (5.0-8.0) Ur Specific Bryan >= 1.030 (1.001-1.035) Urine Protein NEGATIVE (NEGATIVE) mg/dL Urine Glucose (UA) NEGATIVE (NEGATIVE) mg/dL Urine Ketones NEGATIVE (NEGATIVE) mg/dL Urine Occult Blood NEGATIVE (NEGATIVE) Urine Nitrite NEGATIVE (NEGATIVE) Urine Bilirubin NEGATIVE (NEGATIVE) Urine Urobilinogen 0.2 (<2.0) EU/dL Ur Leukocyte Esterase SMALL H (NEGATIVE) Urine RBC 0-1 (0-2/HPF) Urine WBC 2-4 (0-5/HPF) Ur Epithelial Cells FEW (NONE-FEW) Urine Bacteria FEW (NEGATIVE) Urine Mucus HEAVY (NONE-MOD) 02/10/20 02/10/20 Range/Units 00:40 00:40 WBC (4.0-11.0) K/uL RBC (4.30-5.90) M/uL Hgb (12.0-16.0) g/dL Hct (36.0-46.0) % MCV (80.0-98.0) fL MCH (27.0-32.0) pg MCHC (31.0-37.0) g/dL RDW Std Deviation (28.0-62.0) fl RDW Coeff of Roney (11.0-15.0) % Plt Count (150-400) K/uL MPV (7.40-12.00) fL Neut % (Auto) (48.0-80.0) % Lymph % (Auto) (16.0-40.0) % [place] % (Auto) (0.0-15.0) % Eos % (Auto) (0.0-7.0) % Baso % (Auto) (0.0-1.5) % Neut # (Auto) (1.4-5.7) K/uL Lymph # (Auto) (0.6-2.4) K/uL [place] # (Auto) (0.0-0.8) K/uL Eos # (Auto) (0.0-0.7) K/uL Baso # (Auto) (0.0-0.1) K/uL D-Dimer, Quantitative (0.0-0.50) mg/L FEU Sodium 140 (136-145) mmol/L Potassium 4.1 (3.5-5.1) mmol/L Chloride 104 (98-107) mmol/L Carbon Dioxide 24.2 (21.0-32.0) mmol/L BUN 16 (7.0-18.0) mg/dL Creatinine 0.7 (0.6-1.0) mg/dL Est Cr Clr Drug Dosing 102.51 mL/min Estimated GFR (MDRD) > 60.0 ml/min Glucose 103 (74-106) mg/dL Calcium 9.2 (8.5-10.1) mg/dL Total Bilirubin 0.3 (0.2-1.0) mg/dL AST 117 H (15-37) IU/L ALT 88 H (14-63) IU/L Alkaline Phosphatase 144 H (46-116) U/L Troponin I < 0.050 (0.000-0.056) ng/mL Total Protein 7.7 (6.4-8.2) g/dL Albumin 3.6 (3.4-5.0) g/dL Globulin 4.1 H (2.6-4.0) g/dL Albumin/Globulin Ratio 0.9 (0.9-1.6) Lipase 88 (73-393) U/L Urine Color Urine Appearance Urine pH (5.0-8.0) Ur Specific Bryan (1.001-1.035) Urine Protein (NEGATIVE) mg/dL Urine Glucose (UA) (NEGATIVE) mg/dL Urine Ketones (NEGATIVE) mg/dL Urine Occult Blood (NEGATIVE) Urine Nitrite (NEGATIVE) Urine Bilirubin (NEGATIVE) Urine Urobilinogen (<2.0) EU/dL Ur Leukocyte Esterase (NEGATIVE) Urine RBC (0-2/HPF) Urine WBC (0-5/HPF) Ur Epithelial Cells (NONE-FEW) Urine Bacteria (NEGATIVE) Urine Mucus (NONE-MOD) Meds: Medications Discontinued Medications Generic Name Dose Route Start Last Admin Trade Name Freq PRN Reason Stop Dose Admin Iopamidol 100 ml 02/10/20 03:07 02/10/20 03:08 Isovue-370 (76%) IVPUSH 02/10/20 03:08 100 ml ONETIME ONE Administration Ketorolac Tromethamine 15 mg 02/10/20 02:41 02/10/20 02:49 Toradol IVPUSH 02/10/20 02:42 Not Given ONETIME ONE Ketorolac Tromethamine Confirm 02/10/20 02:44 02/10/20 02:48 Toradol Administered 02/10/20 02:45 Not Given Dose 15 mg .ROUTE .STK-MED ONE Ketorolac Tromethamine 15 mg 02/10/20 02:47 02/10/20 02:48 Toradol IVPUSH 02/10/20 02:48 15 mg NOW STA Administration Departure - Departure Time of Disposition: 04:12 Disposition: Home, Self-Care 01 Condition: Good Clinical Impression: Biliary colic, Cholelithiasis - Discharge Information Prescriptions: Acetaminophen/HYDROcodone [[place] 325-5 MG] 2 tab PO Q4H PRN #14 tablet PRN Reason: Pain Ondansetron [Zofran] 4 mg PO Q4H PRN #10 tab PRN Reason: Nausea Instructions: Cholelithiasis Referrals: PCP,None [Primary Care Provider] - Forms: ED Department Discharge Additional Instructions: [facility] - General Surgery Professional Building [address] [place] [address], [address] [place] [address] [facility] - Primary Care [address] [place] [id number] [address] The following information is given to patients seen in the emergency department who are being discharged to home. This information is to outline your options for follow-up care. We provide all patients seen in our emergency department wit h a follow-up referral. The need for follow-up, as well as the timing and circumstances, are variable depending upon the specifics of your emergency department visit. If you don't have a primary care physician on staff, we will provide you with a referral. We always advise you to contact your personal physician following an emergency department visit to inform them of the circumstance of the visit and for follow-up with them and/or the need for any referrals to a consulting specialist. The emergency department will also refer you to a specialist when appropriate. This referral assures that you have the opportunity for follow-up care with a specialist. All of these measure are taken in an effort to provide you with optimal care, which includes your follow-up. Under all circumstances we always encourage you to contact your private physician who remains a resource for coordinating your care. When calling for follow-up care, please make the office aware that this follow-up is from your recent emergency room visit. If for any reason you are refused follow-up, please contact the [facility] Emergency Department at and asked to speak to the emergency department charge nurse. Sepsis Event Note (ED) - Evaluation Sepsis Screening Result: No Definite Risk - Focused Exam Vital Signs: Vital Signs Temp Pulse Resp BP Pulse Ox 02/10/20 04:10 97.5 F 72 18 99/54 L 98 02/10/20 02:24 89 18 96/64 97 02/10/20 00:05 97.1 F 88 18 104/61 98
[2020-02-10 01:06] LABS: BLOOD UREA NITROGEN,BUN 16 mg/dL (7.0-18.0); CARBON DIOXIDE,CO2 24.2 mmol/L (21.0-32.0); CHLORIDE,CL 104 mmol/L (98-107); GLUCOSE RANDOM 103 mg/dL (74-106); LIPASE 88 U/L (73-393); POTASSIUM,K 4.1 mmol/L (3.5-5.1); SODIUM,NA 140 mmol/L (136-145)
--- NOTE | 2020-02-10 02:31 | CR ---
Indication: Pleuritic chest pain on the right Technique: Chest 1 view Comparison: None Findings/Impression: Cardiovascular and mediastinum: Heart size and vasculature are normal in caliber and appearance. Lungs and pleural space: Lungs are clear. No sign of infiltrate or mass. No sign of pleural effusion. No pneumothorax. Bones and soft tissues: No acute findings. Dictated by Hugh Ramires MD @ Feb 10 2020 2:29AM Signed by Dr. Hugh Ramires @ Feb 10 2020 2:30AM
--- NOTE | 2020-02-10 02:36 | US ---
INDICATION: Right upper quadrant abdomen pain TECHNIQUE: Ultrasound abdomen limited. Sonographic images of the right upper quadrant were obtained using razo-scale and color Doppler images. COMPARISON: None FINDINGS: Liver: Normal in size and echotexture. No masses. No intrahepatic biliary dilatation. Gallbladder: Single hyperechoic focus which appears mobile. Common bile duct: 5 mm. Pancreas: Mostly obscured by bowel gas without discrete lesion. Right kidney: Normal in size. Normal echotexture and cortex. No masses, stones, or hydronephrosis. IMPRESSION: 1. Small mobile echogenic structure within the gallbladder, probably a tiny gallstone. No sonographic evidence of cholecystitis. Dictated by Hugh Ramires MD @ Feb 10 2020 2:31AM Signed by Dr. Hugh Ramires @ Feb 10 2020 2:33AM
--- NOTE | 2020-02-10 02:36 | US ---
INDICATION: , elevated D-dimer. TECHNIQUE: Ultrasound venous duplex lower extremity bilateral. Compression venous exam was performed using razo-scale, color Doppler, and spectral Doppler imaging. COMPARISON: None. FINDINGS: Sonographic imaging demonstrates the common femoral, deep femoral, superficial femoral, popliteal, posterior tibial and greater saphenous veins to be fully compressible with normal color Doppler blood flow in both lower extremities. IMPRESSION: Normal bilateral lower extremity venous ultrasound, no sign of deep venous thrombosis. Dictated by Hugh Ramires MD @ Feb 10 2020 2:33AM Signed by Dr. Hugh Ramires @ Feb 10 2020 2:34AM
[2020-02-10] MEDS ORDERED: Ketorolac 30 MG/ML SDV IVPUSH ONE (02:41)
[2020-02-10] MEDS ORDERED: Ketorolac 15 MG/ML SDV ONE (02:44)
[2020-02-10] MEDS ORDERED: Ketorolac 15 MG/ML SDV IVPUSH STA (02:47)
[2020-02-10] MEDS ORDERED: Iopamidol 755 Mg/ML 100 ML Bottle IVPUSH ONE (03:07)
--- NOTE | 2020-02-10 03:57 | CT ---
INDICATION: Pleuritic chest pain TECHNIQUE: CT chest PE was acquired with 100 cc Isovue 370 intravenous contrast. COMPARISON: None. FINDINGS: Heart and vasculature: Contrast opacification of the pulmonary arterial tree is adequate. No sign of pulmonary embolism. Heart size is normal. Thoracic aorta and pulmonary artery are normal in caliber. Lungs and pleural: No suspicious nodules or infiltrates. No pleural effusions, pleural thickening, or pneumothorax. Lymph nodes/mediastinum: Right hilar lymph node measures 12 millimeters. Chest wall: No masses. Upper abdomen: Normal. Bones: Mild bowing of the superior endplate of the T5 vertebral body, possibly an early Schmorl`s node. IMPRESSION: Unremarkable chest CTA. No evidence of pulmonary embolus. No acute consolidation. Please note that all CT scans at this facility use dose modulation, iterative reconstruction, and/or weight-based dosing when appropriate to reduce radiation dose to as low as reasonably achievable. Dictated by Hugh Ramires MD @ Feb 10 2020 3:49AM Signed by Dr. Hugh Ramires @ Feb 10 2020 3:56AM
== END 2020-02-10 04:20 | disposition home or self-care (01) ==
LOC: MW.ED 00:04
DX: O99.63 Diseases of the digestive system complicating the puerperium (principal); K80.70 Calculus of gallbladder and bile duct without cholecystitis without obstruction; Z88.8 Allergy status to other drugs, medicaments and biological substances; Z90.49 Acquired absence of other specified parts of digestive tract; Z79.82 Long term (current) use of aspirin
CPT/HCPCS: 36415; 71045; 71275; 76705; 80053; 81001; 83690; 84484; 85025; 85379; 93005; 93971; 96374; 99284; J1885; Q9967; 99283

== ENCOUNTER 2020-02-26 02:30 | Emergency (ER) | payer SELFPAY ==
[2020-02-26] MEDS ORDERED: Sodium Chloride 0.9% 2.5 ML Syringe FLUSH PRN (02:51)
[2020-02-26] MEDS ORDERED: Sodium Chloride 0.9% 10 ML Syringe FLUSH PRN (02:51)
[2020-02-26] MEDS ORDERED: Ondansetron 4 MG/2 ML SDV IVPUSH ONE (02:51)
[2020-02-26] MEDS ORDERED: fentaNYL 50 MCG/ML SDV IVPUSH ONE ×2 (02:51→03:19)
[2020-02-26] MEDS ORDERED: Ondansetron 4 MG/2 ML SDV ONE (02:53)
[2020-02-26] MEDS ORDERED: Sodium Chloride 0.9% 1,000 ML IV ONE (02:53)
[2020-02-26] MEDS ORDERED: fentaNYL 50 MCG/ML SDV ONE (02:53)
--- NOTE | 2020-02-26 02:55 | EDM.PDOC ---
ED HPI GENERAL MEDICAL PROBLEM - General Chief Complaint: Abdominal Pain Stated Complaint: GALLBLADDER ISSUES Time Seen by Provider: 02/26/20 02:40 - History of Present Illness INITIAL COMMENTS - FREE TEXT/NARRATIVE: History of present illness: [] Patient was awakened an hour or 2 ago with severe pain in the right upper quadrant associated with nausea. She has no fever and chills. She has no cough. She has no trouble breathing. The patient was diagnosed by me with a gallstone on [address] angio chest because of the nature of the pain and the location. Review of systems: As per history of present illness and below otherwise all systems reviewed and negative. Past medical history: As per history of present illness and as reviewed below otherwise noncontributory. Surgical history: As per history of present illness and as reviewed below otherwise noncontributory. Social history: No reported history of drug or alcohol abuse. Family history: As per history of present illness and as reviewed below otherwise noncontributory. Physical exam: Constitutional - well developed, well-nourished and in no acute distress HEENT - normocephalic, no evidence of trauma - external nose and mouth normal - no mass in neck and no JVD - mucosae moist EYES - full EOM, PERRL, no icterus - no evidence of inflammation, injection, or drainage Respiratory - no respiratory distress, equal bilateral expansion, lungs clear to auscultation and no abnormal lung sounds Cardiovascular - Regular Rhythm with S1 and S2 appreciated and no murmur, gallop or rub. GI -right upper quadrant. Abdomen soft without distension or organomegaly - normal bowel sounds - no guard or rebound Musculoskeletal no gross deformity of long bones or joints - no tenderness, swelling or edema Neurologic - Alert and oriented times four - CN II-XII grossly intact - motor sensory and coordination symmetrically normal Psychiatric - appropriate mood and affect with normal thought content Hematologic - No petechiae or purpura - mucosa appropriate color and sclera not pale - normal nail bed color and refill Integument - no rash or evidence of trauma - normal turgor Diagnostics: [] Therapeutics: [] Impression: [] Plan: [] Definitive disposition and diagnosis as appropriate pending reevaluation and review of above. Abdomen Pain Score (Numeric/FACES): 10 - Related Data Allergies Allergy/AdvReac Type Severity Reaction Status Date / Time prochlorperazine Allergy Anxiety Verified 02/26/20 02:45 [From Compazine] Home Meds: Home Meds Levothyroxine [Synthroid] 137 mcg PO ACBREAKFAST 08/17/18 [History] Aspirin [Low Dose Aspirin EC] 81 mg PO DAILY 07/16/19 [History] Nitrofurantoin Monohyd/M-Cryst [Macrobid 100 mg Capsule] 100 mg PO BID 5 Days #10 capsule 07/25/19 [Rx] Oseltamivir [Tamiflu] 75 mg PO BID 5 Days #10 cap 07/25/19 [Rx] Acetaminophen 650 mg PO Q6HR PRN 07/27/19 [History] Ondansetron [Zofran ODT] 4 mg PO Q6H PRN #20 tab.dis 07/28/19 [Rx] Potassium Chloride [Klor-Con M20] 20 meq PO DAILY #14 tab.er 07/28/19 [Rx] Acetaminophen/HYDROcodone [Wade 325-5 MG] 2 tab PO Q4H PRN #14 tablet 02/10/20 [Rx] Ondansetron [Zofran] 4 mg PO Q4H PRN #10 tab 02/10/20 [Rx] Past Medical History HEENT History: Reports: Impaired Vision, Other (See Below) Other HEENT History: Wears glasses. 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 Hematologic History: Reports: None Immunologic History: Reports: None Oncologic (Cancer) History: Reports: None Dermatologic History: Reports: None - Infectious Disease History Infectious Disease History: Reports: None - Past Surgical History Head Surgeries/Procedures: Reports: None HEENT Surgical History: Reports: Tonsillectomy Cardiovascular Surgical History: Reports: None GI Surgical History: Reports: Appendectomy Endocrine Surgical History: Reports: None Social & Family History - Family History Family Medical History: Noncontributory HEENT: Reports: None Cardiac: Reports: Hypertension Respiratory: Reports: None GI: Reports: None : Reports: None OBGYN: Reports: None Musculoskeletal: Reports: None Neurological: Reports: None Psychiatric: Reports: None Endocrine/Metabolic: Reports: Diabetes, type II Hematologic: Reports: None Immunologic: Reports: None Dermatologic: Reports: None Oncologic: Reports: Ovarian, Thyroid - Tobacco Use Smoking Status *Q: Never Smoker - Caffeine Use Caffeine Use: Reports: None - Recreational Drug Use Recreational Drug Use: No ED ROS GENERAL - Review of Systems Review Of Systems: Comprehensive ROS is negative, except as noted in HPI. ED EXAM, GENERAL - Physical Exam Exam: See Below Free Text/Narrative:: The physical exam is in the HPI Course - Vital Signs Text/Narrative:: 3:52 AM patient still suffering. Tenderness isolates to the right upper quadrant under the costal margin anteriorly. The patient has had 2 doses of narcotic pain medicine. Plan CT of the abdomen. There is leukocytosis but lipase is normal and gallbladder ultrasound is not showing a cause for the pain. 4:12 AM I had to order more medicine because the patient's pain. Reexamined shows tenderness remains in the right upper quadrant and reproduces her pain. Chest x-ray is unremarkable. CT did not reveal any acute cause for her pain other than a possible ovarian cyst. Will be instructed to follow-up with general surgery for possible endoscopy and possible nuclear medicine gallbladder studies. Last Recorded V/S: Last Vital Signs Temp 96.8 F L 02/26/20 02:40 Pulse 82 02/26/20 04:20 Resp 18 02/26/20 04:20 BP 102/61 02/26/20 04:20 Pulse Ox 98 02/26/20 04:20 - Orders/Labs/Meds Orders: Active Orders 24 hr Category Date Time Status Sodium Chloride 0.9% [Saline Flush] Med 02/26/20 02:51 Active 10 ml FLUSH ASDIRECTED PRN Sodium Chloride 0.9% [Saline Flush] Med 02/26/20 02:51 Active 2.5 ml FLUSH ASDIRECTED PRN Saline Lock Insert [OM.PC] Stat Oth 02/26/20 02:51 Ordered Medication Orders Sodium Chloride (Saline Flush) 10 ml FLUSH ASDIRECTED PRN PRN Reason: Keep Vein Open Sodium Chloride (Saline Flush) 2.5 ml FLUSH ASDIRECTED PRN PRN Reason: Keep Vein Open Labs: Laboratory Tests 02/26/20 02/26/20 02/26/20 Range/Units 02:40 02:40 02:40 WBC 12.46 H (4.0-11.0) K/uL RBC 4.27 L (4.30-5.90) M/uL Hgb 11.2 L (12.0-16.0) g/dL Hct 34.2 L (36.0-46.0) % MCV 80.1 (80.0-98.0) fL MCH 26.2 L (27.0-32.0) pg MCHC 32.7 (31.0-37.0) g/dL RDW Std Deviation 43.8 (28.0-62.0) fl RDW Coeff of Roney 15 (11.0-15.0) % Plt Count 324 (150-400) K/uL MPV 10.20 (7.40-12.00) fL Neut % (Auto) 59.0 (48.0-80.0) % Lymph % (Auto) 34.0 (16.0-40.0) % [place] % (Auto) 5.9 (0.0-15.0) % Eos % (Auto) 0.9 (0.0-7.0) % Baso % (Auto) 0.2 (0.0-1.5) % Neut # (Auto) 7.4 H (1.4-5.7) K/uL Lymph # (Auto) 4.2 H (0.6-2.4) K/uL [place] # (Auto) 0.7 (0.0-0.8) K/uL Eos # (Auto) 0.1 (0.0-0.7) K/uL Baso # (Auto) 0.0 (0.0-0.1) K/uL Nucleated RBC % 0.0 /100WBC Nucleated RBCs # 0 K/uL Sodium 140 (136-145) mmol/L Potassium 3.6 (3.5-5.1) mmol/L Chloride 105 (98-107) mmol/L Carbon Dioxide 22.0 (21.0-32.0) mmol/L BUN 16 (7.0-18.0) mg/dL Creatinine 0.8 (0.6-1.0) mg/dL Est Cr Clr Drug Dosing 89.70 mL/min Estimated GFR (MDRD) > 60.0 ml/min Glucose 111 H (74-106) mg/dL Calcium 8.9 (8.5-10.1) mg/dL Total Bilirubin 0.1 L (0.2-1.0) mg/dL AST 27 (15-37) IU/L ALT 43 (14-63) IU/L Alkaline Phosphatase 112 (46-116) U/L Total Protein 7.4 (6.4-8.2) g/dL Albumin 3.5 (3.4-5.0) g/dL Globulin 3.9 (2.6-4.0) g/dL Albumin/Globulin Ratio 0.9 (0.9-1.6) Lipase 106 (73-393) U/L HCG, Qual NEGATIVE (NEG) Urine Color Urine Appearance Urine pH (5.0-8.0) Ur Specific [place] (1.001-1.035) Urine Protein (NEGATIVE) mg/dL Urine Glucose (UA) (NEGATIVE) mg/dL Urine Ketones (NEGATIVE) mg/dL Urine Occult Blood (NEGATIVE) Urine Nitrite (NEGATIVE) Urine Bilirubin (NEGATIVE) Urine Urobilinogen (<2.0) EU/dL Ur Leukocyte Esterase (NEGATIVE) 02/26/20 Range/Units 04:40 WBC (4.0-11.0) K/uL RBC (4.30-5.90) M/uL Hgb (12.0-16.0) g/dL Hct (36.0-46.0) % MCV (80.0-98.0) fL MCH (27.0-32.0) pg MCHC (31.0-37.0) g/dL RDW Std Deviation (28.0-62.0) fl RDW Coeff of Roney (11.0-15.0) % Plt Count (150-400) K/uL MPV (7.40-12.00) fL Neut % (Auto) (48.0-80.0) % Lymph % (Auto) (16.0-40.0) % [place] % (Auto) (0.0-15.0) % Eos % (Auto) (0.0-7.0) % Baso % (Auto) (0.0-1.5) % Neut # (Auto) (1.4-5.7) K/uL Lymph # (Auto) (0.6-2.4) K/uL [place] # (Auto) (0.0-0.8) K/uL Eos # (Auto) (0.0-0.7) K/uL Baso # (Auto) (0.0-0.1) K/uL Nucleated RBC % /100WBC Nucleated RBCs # K/uL Sodium (136-145) mmol/L Potassium (3.5-5.1) mmol/L Chloride (98-107) mmol/L Carbon Dioxide (21.0-32.0) mmol/L BUN (7.0-18.0) mg/dL Creatinine (0.6-1.0) mg/dL Est Cr Clr Drug Dosing mL/min Estimated GFR (MDRD) ml/min Glucose (74-106) mg/dL Calcium (8.5-10.1) mg/dL Total Bilirubin (0.2-1.0) mg/dL AST (15-37) IU/L ALT (14-63) IU/L Alkaline Phosphatase (46-116) U/L Total Protein (6.4-8.2) g/dL Albumin (3.4-5.0) g/dL Globulin (2.6-4.0) g/dL Albumin/Globulin Ratio (0.9-1.6) Lipase (73-393) U/L HCG, Qual (NEG) Urine Color YELLOW Urine Appearance CLEAR Urine pH 6.5 (5.0-8.0) Ur Specific [place] 1.010 (1.001-1.035) Urine Protein NEGATIVE (NEGATIVE) mg/dL Urine Glucose (UA) NEGATIVE (NEGATIVE) mg/dL Urine Ketones NEGATIVE (NEGATIVE) mg/dL Urine Occult Blood NEGATIVE (NEGATIVE) Urine Nitrite NEGATIVE (NEGATIVE) Urine Bilirubin NEGATIVE (NEGATIVE) Urine Urobilinogen 0.2 (<2.0) EU/dL Ur Leukocyte Esterase NEGATIVE (NEGATIVE) Meds: Medications Generic Name Dose Route Start Last Admin Trade Name Freq PRN Reason Stop Dose Admin Sodium Chloride 10 ml 02/26/20 02:51 Saline Flush FLUSH ASDIRECTED PRN Keep Vein Open Sodium Chloride 2.5 ml 02/26/20 02:51 Saline Flush FLUSH ASDIRECTED PRN Keep Vein Open Discontinued Medications Generic Name Dose Route Start Last Admin Trade Name Freq PRN Reason Stop Dose Admin Fentanyl 50 mcg 02/26/20 02:51 02/26/20 02:57 Fentanyl IVPUSH 02/26/20 02:52 50 mcg ONETIME ONE Administration Fentanyl Confirm 02/26/20 02:53 02/26/20 02:58 Fentanyl Administered 02/26/20 02:54 Not Given Dose 50 mcg .ROUTE .STK-MED ONE Fentanyl 50 mcg 02/26/20 03:19 02/26/20 03:25 Fentanyl IVPUSH 02/26/20 03:20 50 mcg ONETIME ONE Administration Hydromorphone HCl 1 mg 02/26/20 03:55 02/26/20 04:57 Dilaudid IVPUSH 02/26/20 03:56 1 mg ONETIME ONE Administration Sodium Chloride 1,000 mls @ 999 mls/hr 02/26/20 02:53 02/26/20 02:57 Normal Saline IV 02/26/20 03:53 999 mls/hr .BOLUS ONE Administration Iopamidol 100 ml 02/26/20 04:21 02/26/20 04:22 Isovue Multipack-370 (76%) IVPUSH 02/26/20 04:22 100 ml ONETIME STA Administration Ondansetron HCl 4 mg 02/26/20 02:51 02/26/20 02:57 Zofran IVPUSH 02/26/20 02:52 4 mg ONETIME ONE Administration Ondansetron HCl Confirm 02/26/20 02:53 02/26/20 02:58 Zofran Administered 02/26/20 02:54 Not Given Dose 4 mg .ROUTE .STK-MED ONE Departure - Departure Time of Disposition: 06:17 Disposition: Home, Self-Care 01 Condition: Good Clinical Impression: Right upper quadrant pain - Discharge Information Instructions: Abdominal Pain, Adult, [id number] Referrals: PCP,None [Primary Care Provider] - Laura Ingram MD [Physician] - Forms: ED Department Discharge Additional Instructions: [facility] - Primary Care [address] [place] [id number] [address] The following information is given to patients seen in the emergency department who are being discharged to home. This information is to outline your options for follow-up care. We provide all patients seen in our emergency department with a follow-up referral. The need for follow-up, as well as the timing and circumstances, are variable de pending upon the specifics of your emergency department visit. If you don't have a primary care physician on staff, we will provide you with a referral. We always advise you to contact your personal physician following an emergency department visit to inform them of the circumstance of the visit and for follow-up with them and/or the need for any referrals to a consulting specialist. The emergency department will also refer you to a specialist when appropriate. This referral assures that you have the opportunity for follow-up care with a specialist. All of these measure are taken in an effort to provide you with optimal care, which includes your follow-up. Under all circumstances we always encourage you to contact your private physician who remains a resource for coordinating your care. When calling for follow-up care, please make the office aware that this follow-up is from your recent emergency room visit. If for any reason you are refused follow-up, please contact the [facility] Emergency Department at and asked to speak to the emergency department charge nurse. [facility] - General Surgery Professional [address], [address] [place] [address] Sepsis Event Note (ED) - Evaluation Sepsis Screening Result: No Definite Risk - Focused Exam Vital Signs: Vital Signs Temp Pulse Resp BP Pulse Ox 02/26/20 04:20 82 18 102/61 98 02/26/20 03:26 82 18 121/67 98 02/26/20 02:40 96.8 F L 83 18 117/65 98 - My Orders Last 24 Hours: My Active Orders 02/26/20 02:51 Sodium Chloride 0.9% [Saline Flush] 10 ml FLUSH ASDIRECTED PRN Sodium Chloride 0.9% [Saline Flush] 2.5 ml FLUSH ASDIRECTED PRN Saline Lock Insert [OM.PC] Stat - Assessment/Plan Last 24 Hours: My Active Orders 02/26/20 02:51 Sodium Chloride 0.9% [Saline Flush] 10 ml FLUSH ASDIRECTED PRN Sodium Chloride 0.9% [Saline Flush] 2.5 ml FLUSH ASDIRECTED PRN Saline Lock Insert [OM.PC] Stat
[2020-02-26 03:13] LABS: BLOOD UREA NITROGEN,BUN 16 mg/dL (7.0-18.0); CHLORIDE,CL 105 mmol/L (98-107); GLUCOSE RANDOM 111 mg/dL (74-106); LIPASE 106 U/L (73-393); POTASSIUM,K 3.6 mmol/L (3.5-5.1); SODIUM,NA 140 mmol/L (136-145)
[2020-02-26] MEDS ORDERED: HYDROmorphone 1 MG/ML Syringe IVPUSH ONE (03:55)
--- NOTE | 2020-02-26 04:03 | US ---
INDICATION: Biliary colic TECHNIQUE: Ultrasound abdomen limited. Sonographic images of the gallbladder and biliary tree were obtained using razo-scale and color Doppler images. COMPARISON: 02/10/2020 FINDINGS: Liver: The liver parenchyma is normal in echotexture. Gallbladder: There are several tiny echogenic foci within the gallbladder which may represent small gallstones. The appearance is similar to prior exam. The gallbladder wall is normal in appearance. No pericholecystic fluid is present. No sonographic [place] sign is present. Common bile duct: 2 mm. No intrahepatic biliary ductal dilatation seen. Vascular: Proximal abdominal aorta and IVC are not demonstrated. Right kidney: 11.4 cm. The renal parenchyma is unremarkable in appearance with no hydronephrosis seen. IMPRESSION: 1. The gallbladder is unremarkable in appearance. Dictated by Bob Avina MD @ 02/26/2020 4:02:26 AM Dictated by: Bob Avina MD @ 02/26/2020 04:03:00 (Electronically Signed)
[2020-02-26] MEDS ORDERED: Iopamidol 755 MG/ML 500 ML Multipack Bottle IVPUSH STA (04:21)
--- NOTE | 2020-02-26 04:22 | CR ---
INDICATION: Chest pain in diaphragmatic area on right side TECHNIQUE: Chest radiograph 1 view COMPARISON: 02/10/2020 FINDINGS: Moderate degradation of image quality noted due to body habitus. Mediastinum: The mediastinum is normal in appearance. The heart silhouette is normal in size and morphology. Lung: Both lungs are unremarkable in appearance. No sign of pleural effusion seen. No pneumothorax is identified. Bone and Soft tissue: Unremarkable for age. IMPRESSION: 1. No acute cardiopulmonary disease is seen. Dictated by: Bob Avina MD @ 02/26/2020 04:21:54 (Electronically Signed)
--- NOTE | 2020-02-26 04:51 | CT ---
INDICATION: Abdominal pain and tenderness in right upper quadrant TECHNIQUE: CT Abdomen and pelvis with i.v. contrast. Coronal and sagittal reformats were obtained. CONTRAST: 100 mL Isovue 370 COMPARISON: Ultrasound 02/26/2020, 02/10/2020, 08/18/2018 FINDINGS: Lower chest: Unremarkable. Liver: Unremarkable. Spleen: Unremarkable. Pancreas: Unremarkable. Gallbladder: Mild gallbladder distention is seen but the gallbladder is unremarkable in appearance by recent ultrasound. Kidney: Unremarkable. No kidney or ureteral stones or obstruction seen. Adrenal: Unremarkable. Bowel: Unremarkable. Previous appendectomy noted with no significant appendiceal stump identified. Vascular: Unremarkable. Lymph: Unremarkable. Peritoneum: Unremarkable. No pneumoperitoneum is seen. No significant ascites is noted. Pelvis: A radiolucent ring is present within the vaginal fornix, likely a contraceptive device. There is a cyst or follicle present in the right ovary measuring 2.2 cm. Soft tissue: Unremarkable. Bone: Unremarkable for age. IMPRESSION: 1. Unremarkable with no CT correlate for the patient`s symptoms seen. Dictated by Bob Avina MD @ 02/26/2020 4:49:38 AM Please note that all CT scans at this facility use dose modulation, iterative reconstruction, and/or weight-based dosing when appropriate to reduce radiation dose to as low as reasonably achievable. Dictated by: Bob Avina MD @ 02/26/2020 04:49:56 (Electronically Signed)
== END 2020-02-26 06:30 | disposition home or self-care (01) ==
LOC: MW.ED 02:30
DX: R10.11 Right upper quadrant pain (principal); E03.9 Hypothyroidism, unspecified; Z79.899 Other long term (current) drug therapy; Z79.82 Long term (current) use of aspirin; Z88.8 Allergy status to other drugs, medicaments and biological substances
CPT/HCPCS: 36415; 71045; 74177; 76705; 80053; 81003; 83690; 84703; 85025; 96361; 96374; 96375; 99284; J1170; J2405; J3010; J7030; Q9967; 99283

== ENCOUNTER 2020-02-26 11:17 | Emergency (ER) | payer SELFPAY ==
--- NOTE | 2020-02-26 11:50 | EDM.PDOC ---
ED HPI GENERAL MEDICAL PROBLEM - General Chief Complaint: Abdominal Pain Stated Complaint: PAIN AROUND GALLBLADDER Time Seen by Provider: 02/26/20 11:23 Source of Information: Reports: Patient History Limitations: Reports: No Limitations - History of Present Illness INITIAL COMMENTS - FREE TEXT/NARRATIVE: HISTORY AND PHYSICAL: History of present illness: Patient was seen in the ED earlier this morning and did have an extensive evaluation including CT of the abdomen and pelvis with contrast, and a right upper quadrant ultrasound of her gallbladder which were all unremarkable other than for mild leukocytosis, gallbladder did show some small possible gallstones without evidence of acute cholecystitis. CT abd/pelvis shows no acute findings with prior appendectomy noted. Patient discharged with instructions to follow up with general surgery for further investigation into RUQ pain. Patient denies fever, chills, chest pain, shortness of breath, or cough. Denies headache, neck stiff ness, change in vision, syncope, or near syncope. Denies nausea, vomiting, abdominal pain, diarrhea, constipation, or dysuria. Has not noted any blood in urine or stool. Patient has been eating and drinking appropriately. Review of systems: As per history of present illness and below otherwise all systems reviewed and negative. Past medical history: As per history of present illness and as reviewed below otherwise noncontributory. Surgical history: As per history of present illness and as reviewed below otherwise noncontributory. Social history: See social history for further information Family history: As per history of present illness and as reviewed below otherwise noncontributory. Physical exam: General: Patient is alert, oriented, and in no acute distress. Patient sitting comfortably on exam table. HEENT: Atraumatic, normocephalic, pupils equal and reactive bilaterally, negative for conjunctival pallor or scleral icterus, mucous membranes moist, TMs normal bilaterally, throat clear, neck supple, nontender, trachea midline. No drooling or trismus noted. No meningeal signs. No hot potato voice noted. Lungs: Clear to auscultation, breath sounds equal bilaterally, chest nontender. Heart: S1S2, regular rate and rhythm without overt murmur Abdomen: Soft, nondistended, nontender. Negative for masses or hepatosplenomegaly. Negative for costovertebral tenderness. Pelvis: Stable nontender. Genitourinary: Deferred. Rectal: Deferred. Skin: Intact, warm, dry. No lesions or rashes noted. Extremities: Atraumatic, negative for cords or calf pain. Neurovascular unremarkable. Neuro: Awake, alert, oriented. Cranial nerves II through XII unremarkable. Cerebellum unremarkable. Motor and sensory unremarkable throughout. Exam nonfocal. Notes: Leukocytosis improved with repeat labwork. Patient requesting to leave ED prior to completion of diagnostics. Patient signed AMA and left ED prior to discharge. Diagnostics: CBC, CMP, UA, RUQ US, COVID-19 Therapeutics: Bentyl, GI cocktail, Zofran Prescription: None Impression: RUQ abdominal pain Vomiting Left against medical advice Plan: Patient left the ED prior to discharge AGAINST MEDICAL ADVICE. Definitive disposition and diagnosis as appropriate pending reevaluation and review of above. RUQ Pain Score (Numeric/FACES): 8 - Related Data Allergies Allergy/AdvReac Type Severity Reaction Status Date / Time prochlorperazine Allergy Anxiety Verified 02/26/20 11:26 [From Compazine] Home Meds: Home Meds Levothyroxine [Synthroid] 137 mcg PO ACBREAKFAST 08/17/18 [History] Acetaminophen 650 mg PO Q6HR PRN 07/27/19 [History] Past Medical History HEENT History: Reports: Impaired Vision, Other (See Below) Other HEENT History: Wears glasses. 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: Musculoskeletal History: Reports: None Neurological History: Reports: None Psychiatric History: Reports: None Endocrine/Metabolic History: Reports: Hypothyroidism Insulin Pump Model and Services Rep: None Hematologic History: Reports: None Immunologic History: Reports: None Oncologic (Cancer) History: Reports: None Dermatologic History: Reports: None - Infectious Disease History Infectious Disease History: Reports: None - Past Surgical History Head Surgeries/Procedures: Reports: None HEENT Surgical History: Reports: Tonsillectomy Cardiovascular Surgical History: Reports: None GI Surgical History: Reports: Appendectomy Endocrine Surgical History: Reports: None Social & Family History - Family History Family Medical History: Noncontributory HEENT: Reports: None Cardiac: Reports: Hypertension Respiratory: Reports: None GI: Reports: None : Reports: None OBGYN: Reports: None Musculoskeletal: Reports: None Neurological: Reports: None Psychiatric: Reports: None Endocrine/Metabolic: Reports: Diabetes, type II Hematologic: Reports: None Immunologic: Reports: None Dermatologic: Reports: None Oncologic: Reports: Ovarian, Thyroid - Tobacco Use Smoking Status *Q: Never Smoker - Caffeine Use Caffeine Use: Reports: None - Recreational Drug Use Recreational Drug Use: No ED ROS GENERAL - Review of Systems Review Of Systems: Comprehensive ROS is negative, except as noted in HPI. ED EXAM, GENERAL - Physical Exam Exam: See Below (seer dictation) Course - Vital Signs Last Recorded V/S: Last Vital Signs Temp 96.1 F L 02/26/20 11:23 Pulse 74 02/26/20 11:23 Resp 18 02/26/20 11:23 BP 118/74 02/26/20 11:23 Pulse Ox 97 02/26/20 11:23 - Orders/Labs/Meds Labs: Laboratory Tests 02/26/20 02/26/20 Range/Units 13:05 13:05 WBC 10.55 (4.0-11.0) K/uL RBC 3.96 L (4.30-5.90) M/uL Hgb 10.3 L (12.0-16.0) g/dL Hct 32.1 L (36.0-46.0) % MCV 81.1 (80.0-98.0) fL MCH 26.0 L (27.0-32.0) pg MCHC 32.1 (31.0-37.0) g/dL RDW Std Deviation 44.4 (28.0-62.0) fl RDW Coeff of Roney 15 (11.0-15.0) % Plt Count 298 (150-400) K/uL MPV 9.90 (7.40-12.00) fL Neut % (Auto) 78.9 (48.0-80.0) % Lymph % (Auto) 15.8 L (16.0-40.0) % [place] % (Auto) 4.9 (0.0-15.0) % Eos % (Auto) 0.3 (0.0-7.0) % Baso % (Auto) 0.1 (0.0-1.5) % Neut # (Auto) 8.3 H (1.4-5.7) K/uL Lymph # (Auto) 1.7 (0.6-2.4) K/uL [place] # (Auto) 0.5 (0.0-0.8) K/uL Eos # (Auto) 0.0 (0.0-0.7) K/uL Baso # (Auto) 0.0 (0.0-0.1) K/uL Nucleated RBC % 0.0 /100WBC Nucleated RBCs # 0 K/uL Sodium 138 (136-145) mmol/L Potassium 4.0 (3.5-5.1) mmol/L Chloride 105 (98-107) mmol/L Carbon Dioxide 24.5 (21.0-32.0) mmol/L BUN 11 (7.0-18.0) mg/dL Creatinine 0.6 (0.6-1.0) mg/dL Est Cr Clr Drug Dosing 119.60 mL/min Estimated GFR (MDRD) > 60.0 ml/min Glucose 103 (74-106) mg/dL Calcium 8.3 L (8.5-10.1) mg/dL Total Bilirubin 0.4 (0.2-1.0) mg/dL AST 94 H (15-37) IU/L ALT 86 H (14-63) IU/L Alkaline Phosphatase 150 H (46-116) U/L Total Protein 7.1 (6.4-8.2) g/dL Albumin 3.3 L (3.4-5.0) g/dL Globulin 3.8 (2.6-4.0) g/dL Albumin/Globulin Ratio 0.9 (0.9-1.6) Lipase 72 L (73-393) U/L Meds: Medications Discontinued Medications Generic Name Dose Route Start Last Admin Trade Name Freq PRN Reason Stop Dose Admin Al Hydroxide/Mg Hydroxide 15 0 ml 02/26/20 12:01 02/26/20 12:09 ml/ Metoclopramide HCl 5 mg/ PO 02/26/20 12:02 25 each Lidocaine HCl 5 ml ONETIME ONE Administration Dicyclomine HCl 10 mg 02/26/20 12:02 02/26/20 12:09 Bentyl PO 02/26/20 12:03 10 mg ONETIME ONE Administration Ondansetron HCl 4 mg 02/26/20 12:02 02/26/20 12:09 Zofran Odt PO 02/26/20 12:03 4 mg ONETIME ONE Administration Departure - Departure Time of Disposition: 15:08 Disposition: Against Medical Advice 07 Clinical Impression: RUQ abdominal pain, Left against medical advice Vomiting Qualifiers: Vomiting type: unspecified Vomiting Intractability: non-intractable Nausea presence: with nausea Qualified Code(s): R11.2 - Nausea with vomiting, unspecified - Discharge Information Referrals: PCP,None [Primary Care Provider] - Forms: ED Department Discharge Additional Instructions: Patient left the ED prior to discharge AGAINST MEDICAL ADVICE. Sepsis Event Note (ED) - Evaluation Sepsis Screening Result: No Definite Risk - Focused Exam Vital Signs: Vital Signs Temp Pulse Resp BP Pulse Ox 02/26/20 11:23 96.1 F L 74 18 118/74 97
[2020-02-26] MEDS ORDERED: Alum Hydrox/Mag Hydrox/Simeth 15 ML, Metoclopramide 5 MG, Lidocaine 2% 5 ML PO ONE ×3 (12:01)
[2020-02-26] MEDS ORDERED: Ondansetron 4 MG Tab.DIS PO ONE (12:02)
[2020-02-26] MEDS ORDERED: Dicyclomine 10 MG Cap PO ONE (12:02)
[2020-02-26 13:39] LABS: BLOOD UREA NITROGEN,BUN 11 mg/dL (7.0-18.0); CARBON DIOXIDE,CO2 24.5 mmol/L (21.0-32.0); CHLORIDE,CL 105 mmol/L (98-107); GLUCOSE RANDOM 103 mg/dL (74-106); LIPASE 72 U/L (73-393); SODIUM,NA 138 mmol/L (136-145)
== END 2020-02-26 14:39 | disposition left against medical advice (07) ==
LOC: MW.ED 11:17
DX: R10.11 Right upper quadrant pain (principal); R11.2 Nausea with vomiting, unspecified; E03.9 Hypothyroidism, unspecified; Z88.8 Allergy status to other drugs, medicaments and biological substances; Z79.899 Other long term (current) drug therapy
CPT/HCPCS: 36415; 80053; 83690; 85025; 99284; A9270; 99283

== ENCOUNTER 2021-05-06 09:28 | Inpatient (IN) | payer MEDICAID ==
[2021-05-06] MEDS ORDERED: Water For Irrigation,Sterile 1,000 ML Container IRR PRN (10:06)
[2021-05-06] MEDS ORDERED: Ondansetron 4 MG/2 ML SDV IVPUSH PRN (10:06)
[2021-05-06] MEDS ORDERED: Sodium Chloride 0.9% 20 ML SDV IV PRN (10:06)
[2021-05-06] MEDS ORDERED: Carboprost Tromethamine 250 MCG/1 ML Amp IM PRN (10:06)
[2021-05-06] MEDS ORDERED: Sodium Chloride 0.9% 10 ML Syringe FLUSH PRN (10:06)
[2021-05-06] MEDS ORDERED: Sodium Chloride 0.9% 2.5 ML Syringe FLUSH PRN (10:06)
[2021-05-06] MEDS ORDERED: Terbutaline 1 MG/ML SDV SUBCUT PRN (10:06)
[2021-05-06] MEDS ORDERED: Methylergonovine 0.2 MG/1 ML Amp IM PRN (10:06)
[2021-05-06] MEDS ORDERED: Tranexamic Acid 1,000 MG in Sodium Chloride 0.9% 100 ML IV PRN (10:06)
[2021-05-06] MEDS ORDERED: Butorphanol 1 MG/ML SDV IVPUSH PRN (10:06)
[2021-05-06] MEDS ORDERED: Lidocaine 1% 50 ML MDV INJECT PRN (10:06)
[2021-05-06] MEDS ORDERED: Misoprostol 200 MCG Tab PO PRN (10:06)
[2021-05-06] MEDS ORDERED: Oxytocin/0.9 % Sodium Chloride 30 UNIT/500 ML BAG IV SCH ×2 (10:15)
[2021-05-06] MEDS: Lactated Ringers 1,000 ML IV SCH ×3 (10:24→14:07)
[2021-05-06] MEDS ORDERED: Ampicillin 2 GM in Sodium Chloride 0.9% 100 ML IV ONE (10:30)
--- NOTE | 2021-05-06 10:36 | PCM.PREANE ---
Preanesthetic Assessment - Procedure Proposed Procedure: Labor Epidural - Anesthesia/Transfusion/Family Hx Anesthesia History: No Prior Anesthesia Family History of Anesthesia Reaction: No Transfusion History: No Prior Transfusion(s) Type of Transfusion Reactions: Reports: Unknown Intubation History: Unknown - Review of Systems General: No Symptoms Pulmonary: No Symptoms Cardiovascular: No Symptoms Gastrointestinal: No Symptoms, Other (GERD) Neurological: No Symptoms Other: Reports: None, Thyroid Problems (Hypothyroid) - Physical Assessment NPO Status Date: 05/06/21 NPO Status Time: 10:30 Height: 1.6 m Weight: 112.037 kg ASA Class: 2 Mental Status: Alert & Oriented x3 Airway Class: Mallampati = 2 Dentition: Reports: Normal Dentition Thyro-Mental Finger Breadths: 3 Mouth Opening Finger Breadths: 3 ROM/Head Extension: Full Lungs: Clear to Auscultation, Normal Respiratory Effort Cardiovascular: Regular Rate, Regular Rhythm - Allergies Allergies/Adverse Reactions: Allergies Allergy/AdvReac Type Severity Reaction Status Date / Time prochlorperazine Allergy Itching Verified 05/06/21 10:05 [From Compazine] - Blood Blood Available: Yes Product(s) Available: PRBC (Type and screen) - Anesthesia Plan Pre-Op Medication Ordered: None - Acknowledgements Anesthesia Type Planned: Epidural Pt an Appropriate Candidate for the Planned Anesthesia: Yes Alternatives and Risks of Anesthesia Discussed w Pt/Guardian: Yes Pt/Guardian Understands and Agrees with Anesthesia Plan: Yes PreAnesthesia Questionnaire HEENT History: Reports: Impaired Vision, Other (See Below) Other HEENT History: Wears glasses. 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: Musculoskeletal History: Reports: None Neurological History: Reports: None Psychiatric History: Reports: None Endocrine/Metabolic History: Reports: Hypothyroidism Hematologic History: Reports: None Immunologic History: Reports: None Oncologic (Cancer) History: Reports: None Dermatologic History: Reports: None - Infectious Disease History Infectious Disease History: Reports: None - Past Surgical History Head Surgeries/Procedures: Reports: None HEENT Surgical History: Reports: Tonsillectomy Cardiovascular Surgical History: Reports: None GI Surgical History: Reports: Appendectomy Endocrine Surgical History: Reports: None - HOME MEDS Home Medications: Home Meds Levothyroxine [Synthroid] 150 mcg PO ACBREAKFAST 08/17/18 [History] Acetaminophen 650 mg PO Q6HR PRN 07/27/19 [History] - CURRENT (IN HOUSE) MEDS Current Meds: Current Medications Butorphanol Tartrate (Butorphanol 1 Mg/Ml Sdv) 1 mg IVPUSH Q1H PRN PRN Reason: Pain (severe 7-10) Carboprost Tromethamine (Carboprost Tromethamine 250 Mcg/1 Ml Amp) 250 mcg IM ASDIRECTED PRN PRN Reason: Post Hemorrhage Oxytocin/Sodium Chloride (Oxytocin 30 Unit In Ns 0.9% 500 Ml Premix) 30 unit in 500 mls @ 500 mls/hr IV TITRATE JETT Tranexamic Acid 1,000 mg/ (Sodium Chloride) 110 mls @ 660 mls/hr IV ONETIME PRN PRN Reason: Bleeding Oxytocin/Sodium Chloride (Oxytocin 30 Unit In Ns 0.9% 500 Ml Premix) 30 unit in 500 mls @ 2 mls/hr IV TITRATE JETT; Protocol Ampicillin Sodium 2 gm/ Sodium (Chloride) 100 mls @ 200 mls/hr IV ONETIME ONE Stop: 05/06/21 10:59 Ampicillin Sodium 1 gm/ Sodium (Chloride) 50 mls @ 100 mls/hr IV Q4H JETT Lactated Ringer's (Ringers, Lactated) 1,000 mls @ 150 mls/hr IV ASDIRECTED JETT Lidocaine HCl (Lidocaine 1% 50 Ml Mdv) 50 ml INJECT ONETIME PRN PRN Reason: Laceration repair Methylergonovine Maleate (Methylergonovine 0.2 Mg/1 Ml Amp) 0.2 mg IM ASDIRECTED PRN PRN Reason: Post Hemorrhage Misoprostol (Misoprostol 200 Mcg Tab) 200 mcg PO ONETIME PRN PRN Reason: Post Hemorrhage Ondansetron HCl (Ondansetron 4 Mg/2 Ml Sdv) 4 mg IVPUSH Q6H PRN PRN Reason: Nausea/Vomiting Sodium Chloride (Sodium Chloride 0.9% 10 Ml Syringe) 10 ml FLUSH ASDIRECTED PRN PRN Reason: Keep Vein Open Sodium Chloride (Sodium Chloride 0.9% 2.5 Ml Syringe) 2.5 ml FLUSH ASDIRECTED PRN PRN Reason: Keep Vein Open Sodium Chloride (Sodium Chloride 0.9% 20 Ml Sdv) 10 ml IV ASDIRECTED PRN PRN Reason: IV Use Sterile Water (Water For Irrigation,Sterile 1,000 Ml Container) 1,000 ml IRR ASDIRECTED PRN PRN Reason: delivery Terbutaline Sulfate (Terbutaline 1 Mg/Ml Sdv) 0.25 mg SUBCUT ASDIRECTED PRN PRN Reason: Tacysystole
[2021-05-06] MEDS ORDERED: Ropivacaine HCl/PF 200 ML ONE (12:59)
[2021-05-06] MEDS ORDERED: ePHEDrine 50 MG/ML SDV IVPUSH PRN (13:14)
--- NOTE | 2021-05-06 13:14 | PCM.POSTAN ---
POST ANESTHESIA ASSESSMENT - MENTAL STATUS Mental Status: Alert, Oriented - RESPIRATORY Respiratory Status: Respiratory Rate WNL, Airway Patent, O2 Saturation Stable - CARDIOVASCULAR CV Status: Pulse Rate WNL, Blood Pressure Stable - GASTROINTESTINAL GI Status: No Symptoms - POST OP HYDRATION Hydration Status: Adequate & Stable
--- NOTE | 2021-05-06 13:14 | PCM.SN.2 ---
- Pre-Procedure Checklist Attending Provider Aware: Yes Chart Reviewed: Yes Consent Signed: Yes Labs Reviewed: Yes VS/FHR Reviewed: Yes Patient Identification Confirmation Method: Reports: Chart Visual, Verbal Patient Pt an Appropriate Candidate for the Planned Anesthesia: Yes Alternatives and Risks of Anesthesia Discussed w Pt/Guardian: Yes - Procedure Procedure Start Date: 05/06/21 Procedure Start Time: 12:[address]: Reports: Blood Pressure, Heart Rate, SPO2 Functional IV: Yes Bolus Infused (fluid type and amount): 700 ML LR at time of start Safety Measures: Reports: Patient Identified, Procedure Verified, Site Verified, Procedure Time Out Patient Position: Reports: Sitting Prep: Reports: Betadine x3 Local Anesthetic: Reports: Intradermal Wheal w Lidocaine 1% (3 ml) Regional Placement Level: Reports: L3-4 Needle: Reports: 17 g Touhy Approach: Reports: Midline Technique: Reports: BEVERLY Glass Syringe BEVERLY Needle Depth (cm): 7 cm Parasthesia: Reports: None Fluid Obtained: Reports: None Catheter Depth at Skin (cm): 14 cm Test Dose Time: 12:54 Test Dose Medication: Reports: Lidocaine 1.5% w Epinephrine 1:200,000 Test Dose Response: Reports: Negative Loading Dose Time: 13:02 Loading Dose Medication: Ropivicaine 0.2% Loading Dose Patient Position: Supine Continuous Infusion Start Time: 13:03 Continuous Infusion Medication: Ropivicaine 0.2% Continuous Infusion Rate: 14 Continuous Infusion PCS Bolus Option: 6 Continuous Infusion Lockout Dose (cc/hr): 15 (Min Lockout) Patient Position Post Placement: Reports: Supline/MYKE Post-procedure Pain Level: 3 Level Achieved: T4 VS and FHR Monitored in Unit Post Placement: Yes Procedure End Date: 05/06/21 Procedure End Time: 13:34 Procedure Comment: Sterile technique maintained throughout.
[2021-05-06] MEDS ORDERED: Ropivacaine 0.2% 2MG/ML 200 ML Bag EPIDUR SCH (13:30)
[2021-05-06] MEDS ORDERED: Ampicillin 1 GM in Sodium Chloride 0.9% 50 ML IV SCH (14:30)
[2021-05-06] MEDS ORDERED: Witch Hazel Medicated Pads 40/Jar TOP PRN (17:12)
[2021-05-06] MEDS ORDERED: Bisacodyl 10 MG Supp RECTAL PRN (17:12)
[2021-05-06] MEDS ORDERED: Acetaminophen 500 MG Tab PO PRN ×2 (17:12)
[2021-05-06] MEDS ORDERED: Ibuprofen 400 MG Tab PO PRN (17:12)
[2021-05-06] MEDS ORDERED: Docusate Sodium 100 MG Cap PO PRN (17:12)
[2021-05-06] MEDS ORDERED: Lanolin 100% Cream 7 GM Tube TOP PRN (17:12)
[2021-05-06] MEDS ORDERED: Benzocaine/Menthol 20%-0.5% Spray 78 GM Cannister TOP PRN (17:12)
[2021-05-06] MEDS ORDERED: oxyCODONE 5 MG Tab PO PRN (17:12)
--- NOTE | 2021-05-06 17:18 | PCM.OPNOTE ---
- General Post-Op/Procedure Note Date of Surgery/Procedure: 05/06/21 Operative Procedure(s): /IP Findings: Viable Male APGARs 8, 9 weight pending. Spontaneous delivery intact placenta with 3V cord Pre Op Diagnosis: 39/5 week IUP. SROM. GBBS + Post-Op Diagnosis: Same Anesthesia Technique: Epidural Primary Surgeon: Caroline Abbott EBL in mLs: 300 Complications: none known Condition: Good Free Text/Narrative:: Dictation [id number]
[2021-05-06] MEDS: Ibuprofen 800 MG Tab PO PRN (18:00)
--- NOTE | 2021-05-06 19:33 | OR ---
SURGEON: Caroline Abbott M.D. DATE OF PROCEDURE: 05/06/2021 PREOPERATIVE DIAGNOSES: 1. 39 and 5-week intrauterine . 2. Spontaneous rupture of membranes. 3. Group B streptococcus positive. POSTOPERATIVE DIAGNOSES: 1. 39 and 5-week intrauterine . 2. Spontaneous rupture of membranes. 3. Group B streptococcus positive. PROCEDURE: Spontaneous vaginal delivery, intact perineum. PRIMARY SURGEON: Caroline Abbott M.D. ANESTHESIA: Epidural. ESTIMATED BLOOD LOSS: 300 mL. COMPLICATIONS: None known. FINDINGS: Viable male. scores 8 at one minute and 9 at five minutes. Weight is pending. Spontaneous delivery, intact placenta, three-vessel cord. Nuchal cord x1 reduced manually. DISPOSITION: The patient to nursery, mom in LDRP. PROCEDURE DETAILS: Kamla is a 25-year-old, G2, P1, at 39 and 5-week gestational age who presents on the morning of 05/06/2021 with leakage of fluid since 9 a.m. She was found to be grossly ruptured with clear fluid. She is known to be group B beta strep positive. Therefore, she was admitted. Routine labs were drawn, IV hydration was initiated. She underwent ampicillin prophylaxis for her group B beta strep positive status. heart tones were category 1. On initial examination, she was found to be 2 cm, 50% effaced. No evidence of regular contractions. Therefore, Pitocin augmentation was initiated. Patient responded nicely to this, became increasingly uncomfortable. Shortly after noon underwent epidural, became more comfortable, found to be 3 cm. Throughout the afternoon, she continued to progress and shortly after 4 p.m., she was found to be 9.5 cm. I was called for delivery. Upon my arrival, the patient was found to be complete, 100% effaced, at a +1 station. heart tones had variable decelerations with contractions. However, the patient began pushing efforts, and pushed readily to a +3 station, was able to continue pushing efforts and deliver 's head atraumatically spontaneously, followed by anterior shoulder, posterior shoulder, and remainder of the body without difficulty. A loose nuchal cord x1 was reduced manually. The infant's oropharynx and nares were bulb suctioned. Infant was handed off to his mother with attending nursery staff at her side. After a delay, the cord was clamped x2 and cut. Cord arterial, cord venous, cord blood sampling was obtained. Light pressure was applied while the placenta was delivered spontaneously intact. Vigorous fundal uterine massage was then applied with 20 units of Pitocin and was delivered in 500 mL of IV fluid. Upon inspection of cervix, vaginal sidewall, and perineum, these were found to be intact. Hemostasis appeared evident. Sponge, instrument, and needle counts were correct. The patient remained in LDRP, to nursery. BETZAIDA / DIAMOND /[id number]
[2021-05-07] MEDS: Ibuprofen 800 MG Tab PO PRN ×3 (04:58→23:32)
--- NOTE | 2021-05-07 08:12 | PCM.PNPP ---
- General Info Date of Service: 05/07/21 Functional Status: Reports: Pain Controlled, Tolerating Diet, Ambulating, Urinating - Review of Systems General: Reports: Fatigue. Denies: Fever, Weakness Pulmonary: Denies: Shortness of Breath Cardiovascular: Denies: Chest Pain, Palpitations, Lightheadedness Gastrointestinal: Denies: Abdominal Pain, Nausea, Vomiting Genitourinary: Reports: No Symptoms Musculoskeletal: Reports: No Symptoms Skin: Reports: No Symptoms Neurological: Reports: No Symptoms Psychiatric: Reports: No Symptoms - General Info Date of Service: 05/07/21 - Patient Data Vital Signs - Most Recent: Last Vital Signs Temp 35.8 C L 05/06/21 21:45 Pulse 90 05/06/21 21:45 Resp 15 05/06/21 21:45 BP Pulse Ox 97 05/06/21 21:45 Weight - Most Recent: 112.037 kg Lab Results - Last 24 Hours: Laboratory Results - last 24 hr 05/06/21 05/06/21 05/06/21 Range/Units 10:17 10:24 10:24 WBC 9.36 (4.0-11.0) K/uL RBC 4.44 (4.30-5.90) M/uL Hgb 11.1 L (12.0-16.0) g/dL Hct 34.4 L (36.0-46.0) % MCV 77.5 L (80.0-98.0) fL MCH 25.0 L (27.0-32.0) pg MCHC 32.3 (31.0-37.0) g/dL RDW Std Deviation 53.1 (28.0-62.0) fl RDW Coeff of Roney 19 H (11.0-15.0) % Plt Count 224 (150-400) K/uL MPV 10.90 (7.40-12.00) fL Nucleated RBC % 0.0 /100WBC Nucleated RBCs # 0 K/uL Cord ABG pH (7.18-7.38) Cord ABG Base Excess (-10--2) Cord VBG pH (7.25-7.45) Cord VBG Base Excess (-10--2) SARS-CoV-2 RNA (RYLAN) NEGATIVE (NEGATIVE) Blood Type O POSITIVE Antibody Screen NEGATIVE 05/06/21 05/07/21 Range/Units 16:54 05:30 WBC (4.0-11.0) K/uL RBC (4.30-5.90) M/uL Hgb 10.3 L (12.0-16.0) g/dL Hct 31.8 L (36.0-46.0) % MCV (80.0-98.0) fL MCH (27.0-32.0) pg MCHC (31.0-37.0) g/dL RDW Std Deviation (28.0-62.0) fl RDW Coeff of Roney (11.0-15.0) % Plt Count (150-400) K/uL MPV (7.40-12.00) fL Nucleated RBC % /100WBC Nucleated RBCs # K/uL Cord ABG pH 7.225 (7.18-7.38) Cord ABG Base Excess -4 (-10--2) Cord VBG pH 7.342 (7.25-7.45) Cord VBG Base Excess -3 (-10--2) SARS-CoV-2 RNA (RYLAN) (NEGATIVE) Blood Type Antibody Screen Med Orders - Current: Current Medications Acetaminophen (Acetaminophen 500 Mg Tab) 500 mg PO Q4H PRN PRN Reason: Pain (mild 1-3) Acetaminophen (Acetaminophen 500 Mg Tab) 1,000 mg PO Q4H PRN PRN Reason: Pain (mild 1-3) Last Admin: 05/07/21 01:38 Dose: 1,000 mg Documented by: Benzocaine/Menthol (Benzocaine/Menthol 20%-0.5% [place] 78 Gm Cannister) 78 gm TOP ASDIRECTED PRN PRN Reason: Perineal Comfort Measure Bisacodyl (Bisacodyl 10 Mg Supp) 10 mg RECTAL ONETIME PRN PRN Reason: Constipation Carboprost Tromethamine (Carboprost Tromethamine 250 Mcg/1 Ml Amp) 250 mcg IM ASDIRECTED PRN PRN Reason: Post Hemorrhage Docusate Sodium (Docusate Sodium 100 Mg Cap) 100 mg PO Q12H PRN PRN Reason: Constipation Emollient Ointment (Lanolin 100% Cream 7 Gm Tube) 0 gm TOP ASDIRECTED PRN PRN Reason: Sore Nipples Ephedrine Sulfate (Ephedrine 50 Mg/Ml Sdv) 10 mg IVPUSH Q1M PRN PRN Reason: Hypotension Oxytocin/Sodium Chloride (Oxytocin 30 Unit In Ns 0.9% 500 Ml Premix) 30 unit in 500 mls @ 500 mls/hr IV TITRATE [facility] Tranexamic Acid 1,000 mg/ (Sodium Chloride) 110 mls @ 660 mls/hr IV ONETIME PRN PRN Reason: Bleeding Lactated Ringer's (Ringers, Lactated) 1,000 mls @ 150 mls/hr IV ASDIRECTED [facility] Last Admin: 05/06/21 14:07 Dose: 150 mls/hr Documented by: Ibuprofen (Ibuprofen 400 Mg Tab) 400 mg PO Q4H PRN PRN Reason: Pain (mild 1-3) Ibuprofen (Ibuprofen 800 Mg Tab) 800 mg PO Q6H PRN PRN Reason: Cramping Last Admin: 05/07/21 04:58 Dose: 800 mg Documented by: Methylergonovine Maleate (Methylergonovine 0.2 Mg/1 Ml Amp) 0.2 mg IM ASDIRECTED PRN PRN Reason: Post Hemorrhage Miscellaneous Medication (Phenylephrine Hcl In 0.9% Nacl 1 Mg/10 Ml Syringe) 0.1 mg IVPUSH Q1M PRN PRN Reason: Hypotension Ondansetron HCl (Ondansetron 4 Mg/2 Ml Sdv) 4 mg IVPUSH Q6H PRN PRN Reason: Nausea/Vomiting Oxycodone HCl (Oxycodone 5 Mg Tab) 5 mg PO Q2H PRN PRN Reason: Pain (severe 7-10) Ropivacaine (Ropivacaine 0.2% 2mg/Ml 200 Ml Bag) 400 mg EPIDUR ASDIRECTED [facility] Sodium Chloride (Sodium Chloride 0.9% 10 Ml Syringe) 10 ml FLUSH ASDIRECTED PRN PRN Reason: Keep Vein Open Sodium Chloride (Sodium Chloride 0.9% 2.5 Ml Syringe) 2.5 ml FLUSH ASDIRECTED PRN PRN Reason: Keep Vein Open Sodium Chloride (Sodium Chloride 0.9% 20 Ml Sdv) 10 ml IV ASDIRECTED PRN PRN Reason: IV Use Sterile Water (Water For Irrigation,Sterile 1,000 Ml Container) 1,000 ml IRR ASDIRECTED PRN PRN Reason: delivery Witch Светлана (Witch Светлана Medicated Pads 40/Jar) 1 pad TOP ASDIRECTED PRN PRN Reason: comfort care Last Admin: 05/07/21 02:37 Dose: 1 pad Documented by: Discontinued Medications Butorphanol Tartrate (Butorphanol 1 Mg/Ml Sdv) 1 mg IVPUSH Q1H PRN PRN Reason: Pain (severe 7-10) Oxytocin/Sodium Chloride (Oxytocin 30 Unit In Ns 0.9% 500 Ml Premix) 30 unit in 500 mls @ 2 mls/hr IV TITRATE JETT; Protocol Last Titration: 05/06/21 16:20 Dose: 4 munits/min, 4 mls/hr Documented by: Ampicillin Sodium 2 gm/ Sodium (Chloride) 100 mls @ 200 mls/hr IV ONETIME ONE Stop: 05/06/21 10:59 Last Admin: 05/06/21 10:43 Dose: 200 mls/hr Documented by: Ampicillin Sodium 1 gm/ Sodium (Chloride) 50 mls @ 100 mls/hr IV Q4H JETT Last Admin: 05/06/21 14:44 Dose: 100 mls/hr Documented by: Ropivacaine (Naropin 0.2%) Confirm Administered Dose 200 mls @ as directed .ROUTE .STK-MED ONE Stop: 05/06/21 13:00 Lidocaine HCl (Lidocaine 1% 50 Ml Mdv) 50 ml INJECT ONETIME PRN PRN Reason: Laceration repair Misoprostol (Misoprostol 200 Mcg Tab) 200 mcg PO ONETIME PRN PRN Reason: Post Hemorrhage Terbutaline Sulfate (Terbutaline 1 Mg/Ml Sdv) 0.25 mg SUBCUT ASDIRECTED PRN PRN Reason: Tacysystole - Infant Interaction Disposition, : in Room with Family Infant Feeding: Bottle Fed Infant Support Person: Significant Other - Recovery Exam Fundal Tone: Firm Fundal Level: 2 Fingerbreadths Below Umbilicus Fundal Placement: Midline Lochia Amount: Small Lochia Color: Rubra/Red Perineum Description: Intact, Minimal Bruising/Swelling Episiotomy/Laceration: None Bladder Status: Voiding - Exam General: Alert, Oriented Lungs: Normal Respiratory Effort Cardiovascular: Regular Rate, Regular Rhythm GI/Abdominal Exam: Normal Bowel Sounds, Soft Extremities: Pedal Edema (trace). No: Sola's Sign Skin: Warm, Dry, Intact Neurological: No New Focal Deficit - Problem List & Annotations (1) Normal vaginal delivery SNOMED Code(s): 31434170, 339008699 Code(s): O80 - ENCOUNTER FOR FULL-TERM UNCOMPLICATED DELIVERY Status: Acute Current Visit: No - Problem List Review Problem List Initiated/Reviewed/Updated: Yes - My Orders Last 24 Hours: My Active Orders 05/06/21 09:30 Patient Status [ADT] Routine 05/06/21 10:06 May Shower [RC] ASDIRECTED Carboprost Tromethamine [Hemabate DS] 250 mcg IM ASDIRECTED PRN Methylergonovine [Methergine] 0.2 mg IM ASDIRECTED PRN Ondansetron [Zofran] 4 mg IVPUSH Q6H PRN Sodium Chloride 0.9% [Normal Saline] 10 ml IV ASDIRECTED PRN Sodium Chloride 0.9% [Saline Flush] 10 ml FLUSH ASDIRECTED PRN Sodium Chloride 0.9% [Saline Flush] 2.5 ml FLUSH ASDIRECTED PRN Tranexamic Acid [Cyklokapron] 1,000 mg Sodium Chloride 0.9% [Normal Saline] 100 ml IV ONETIME Water For Irrigation,Sterile [Sterile Water for Irrigation] 1,000 ml IRR ASDIRECTED PRN Peripheral IV Insertion Adult [OM.PC] Routine Resuscitation Status Routine 05/06/21 10:15 Lactated Ringers [Ringers, Lactated] 1,000 ml IV ASDIRECTED Oxytocin/0.9 % Sodium Chloride [Oxytocin 30 Unit in NS 0.9% 500 ML Premix] 30 unit in 500 ml IV TITRATE Medication Administration Instruction [OM.PC] Q3H 05/06/21 10:24 RPR (SYPHILIS SERO) W/ RFLX [REF] Routine 05/06/21 Dinner Regular Diet [DIET] 05/06/21 17:12 Patient Status [ADT] Routine May Shower [RC] ASDIRECTED Notify Provider Vital Signs [RC] ASDIRECTED Up ad Maggie [RC] ASDIRECTED Vital Signs [RC] PER UNIT ROUTINE Acetaminophen [Tylenol Extra Strength] 1,000 mg PO Q4H PRN Acetaminophen [Tylenol Extra Strength] 500 mg PO Q4H PRN Benzocaine/Menthol [Dermoplast Pain Relief 20%-0.5% [place]] 78 gm TOP ASDIRECTED PRN Docusate Sodium [Colace] 100 mg PO Q12H PRN Ibuprofen [Motrin] 400 mg PO Q4H PRN Ibuprofen [Motrin] 800 mg PO Q6H PRN Lanolin [Lansinoh HPA] See Dose Instructions TOP ASDIRECTED PRN bisacodyL [Dulcolax] 10 mg RECTAL ONETIME PRN oxyCODONE 5 mg PO Q2H PRN witch Светлана [Tucks] 1 pad TOP ASDIRECTED PRN Assess Lochia [WOMSER] Per Unit Routine Assess Uterine Involution [WOMSER] Per Unit Routine Peripheral IV Discontinue [OM.PC] Routine 05/06/21 17:13 Cooling Warming Measures [RC] ASDIRECTED Ice Therapy [OM.PC] Per Unit Routine Perineal Care [OM.PC] Per Unit Routine Sitz Bath [OM.PC] Per Unit Routine 05/07/21 08:10 Ready for Discharge [RC] PER UNIT ROUTINE - Assessment Assessment:: PPD 1 status post - Plan Plan:: VS and labs reassuring> would like to go home later today if baby discharged. Discharged instructions reviewed. Follow up at [facility] 4 weeks. Discharge to home today.
--- NOTE | 2021-05-07 10:22 | PCM48HPAN ---
Post Anesthesia Note - EVALUATION WITHIN 48HRS OF ANESTHETIC Vital Signs in Normal Range: Yes Patient Participated in Evaluation: Yes Respiratory Function Stable: Yes Airway Patent: Yes Cardiovascular Function Stable: Yes Hydration Status Stable: Yes Pain Control Satisfactory: Yes Nausea and Vomiting Control Satisfactory: Yes Mental Status Recovered: Yes Vital Signs: Last Vital Signs Temp 37.0 C 05/07/21 08:00 Pulse 72 05/07/21 08:00 Resp 16 05/07/21 08:00 BP 98/55 L 05/07/21 08:00 Pulse Ox 97 05/07/21 08:00 - COMMENTS/OBSERVATIONS Free Text/Narrative:: Patient satisfied with analgesia provided by epidural. she has been up walking with no residual weakness or paresthesias. she denies symptoms of infection.
[2021-05-08] MEDS: Ibuprofen 800 MG Tab PO PRN (08:09)
--- NOTE | 2021-05-08 09:14 | PCM.PNPP ---
- General Info Date of Service: 05/08/21 Functional Status: Reports: Pain Controlled, Tolerating Diet, Ambulating, Urinating - Review of Systems General: Denies: Fever, Weakness, Fatigue Pulmonary: Denies: Shortness of Breath Cardiovascular: Denies: Chest Pain, Palpitations, Lightheadedness Gastrointestinal: Denies: Abdominal Pain, Nausea, Vomiting Genitourinary: Denies: Flank Pain Musculoskeletal: Reports: No Symptoms Skin: Reports: No Symptoms Neurological: Reports: No Symptoms Psychiatric: Reports: No Symptoms - General Info Date of Service: 05/08/21 - Patient Data Vital Signs - Most Recent: Last Vital Signs Temp 36.6 C 05/08/21 05:00 Pulse 69 05/08/21 05:00 Resp 18 05/08/21 05:00 BP 117/68 05/08/21 05:00 Pulse Ox 95 05/08/21 05:00 Weight - Most Recent: 112.037 kg Lab Results - Last 24 Hours: Laboratory Results - last 24 hr 05/06/21 Range/Units 10:24 RPR Non-Reac (Non-Reac) Med Orders - Current: Current Medications Acetaminophen (Acetaminophen 500 Mg Tab) 500 mg PO Q4H PRN PRN Reason: Pain (mild 1-3) Acetaminophen (Acetaminophen 500 Mg Tab) 1,000 mg PO Q4H PRN PRN Reason: Pain (mild 1-3) Last Admin: 05/07/21 01:38 Dose: 1,000 mg Documented by: Benzocaine/Menthol (Benzocaine/Menthol 20%-0.5% [place] 78 Gm Cannister) 78 gm TOP ASDIRECTED PRN PRN Reason: Perineal Comfort Measure Bisacodyl (Bisacodyl 10 Mg Supp) 10 mg RECTAL ONETIME PRN PRN Reason: Constipation Carboprost Tromethamine (Carboprost Tromethamine 250 Mcg/1 Ml Amp) 250 mcg IM ASDIRECTED PRN PRN Reason: Post Hemorrhage Docusate Sodium (Docusate Sodium 100 Mg Cap) 100 mg PO Q12H PRN PRN Reason: Constipation Last Admin: 05/07/21 09:35 Dose: 100 mg Documented by: Emollient Ointment (Lanolin 100% Cream 7 Gm Tube) 0 gm TOP ASDIRECTED PRN PRN Reason: Sore Nipples Ephedrine Sulfate (Ephedrine 50 Mg/Ml Sdv) 10 mg IVPUSH Q1M PRN PRN Reason: Hypotension Oxytocin/Sodium Chloride (Oxytocin 30 Unit In Ns 0.9% 500 Ml Premix) 30 unit in 500 mls @ 500 mls/hr IV TITRATE [facility] Tranexamic Acid 1,000 mg/ (Sodium Chloride) 110 mls @ 660 mls/hr IV ONETIME PRN PRN Reason: Bleeding Lactated Ringer's (Ringers, Lactated) 1,000 mls @ 150 mls/hr IV ASDIRECTED [facility] Last Admin: 05/06/21 14:07 Dose: 150 mls/hr Documented by: Ibuprofen (Ibuprofen 400 Mg Tab) 400 mg PO Q4H PRN PRN Reason: Pain (mild 1-3) Ibuprofen (Ibuprofen 800 Mg Tab) 800 mg PO Q6H PRN PRN Reason: Cramping Last Admin: 05/08/21 08:09 Dose: 800 mg Documented by: Methylergonovine Maleate (Methylergonovine 0.2 Mg/1 Ml Amp) 0.2 mg IM ASDIRECTED PRN PRN Reason: Post Hemorrhage Miscellaneous Medication (Phenylephrine Hcl In 0.9% Nacl 1 Mg/10 Ml Syringe) 0.1 mg IVPUSH Q1M PRN PRN Reason: Hypotension Ondansetron HCl (Ondansetron 4 Mg/2 Ml Sdv) 4 mg IVPUSH Q6H PRN PRN Reason: Nausea/Vomiting Oxycodone HCl (Oxycodone 5 Mg Tab) 5 mg PO Q2H PRN PRN Reason: Pain (severe 7-10) Ropivacaine (Ropivacaine 0.2% 2mg/Ml 200 Ml Bag) 400 mg EPIDUR ASDIRECTED [facility] Sodium Chloride (Sodium Chloride 0.9% 10 Ml Syringe) 10 ml FLUSH ASDIRECTED PRN PRN Reason: Keep Vein Open Sodium Chloride (Sodium Chloride 0.9% 2.5 Ml Syringe) 2.5 ml FLUSH ASDIRECTED PRN PRN Reason: Keep Vein Open Sodium Chloride (Sodium Chloride 0.9% 20 Ml Sdv) 10 ml IV ASDIRECTED PRN PRN Reason: IV Use Sterile Water (Water For Irrigation,Sterile 1,000 Ml Container) 1,000 ml IRR ASDIRECTED PRN PRN Reason: delivery Witch Светлана (Witch Светлана Medicated Pads 40/Jar) 1 pad TOP ASDIRECTED PRN PRN Reason: comfort care Last Admin: 05/07/21 02:37 Dose: 1 pad Documented by: Discontinued Medications Butorphanol Tartrate (Butorphanol 1 Mg/Ml Sdv) 1 mg IVPUSH Q1H PRN PRN Reason: Pain (severe 7-10) Oxytocin/Sodium Chloride (Oxytocin 30 Unit In Ns 0.9% 500 Ml Premix) 30 unit in 500 mls @ 2 mls/hr IV TITRATE JETT; Protocol Last Titration: 05/06/21 16:20 Dose: 4 munits/min, 4 mls/hr Documented by: Ampicillin Sodium 2 gm/ Sodium (Chloride) 100 mls @ 200 mls/hr IV ONETIME ONE Stop: 05/06/21 10:59 Last Admin: 05/06/21 10:43 Dose: 200 mls/hr Documented by: Ampicillin Sodium 1 gm/ Sodium (Chloride) 50 mls @ 100 mls/hr IV Q4H JETT Last Admin: 05/06/21 14:44 Dose: 100 mls/hr Documented by: Ropivacaine (Naropin 0.2%) Confirm Administered Dose 200 mls @ as directed .ROUTE .STK-MED ONE Stop: 05/06/21 13:00 Lidocaine HCl (Lidocaine 1% 50 Ml Mdv) 50 ml INJECT ONETIME PRN PRN Reason: Laceration repair Misoprostol (Misoprostol 200 Mcg Tab) 200 mcg PO ONETIME PRN PRN Reason: Post Hemorrhage Terbutaline Sulfate (Terbutaline 1 Mg/Ml Sdv) 0.25 mg SUBCUT ASDIRECTED PRN PRN Reason: Tacysystole - Interaction Infant Disposition, : [place] in Room with Family Infant Feeding: Bottle Fed Support Person: Significant Other - Recovery Exam Fundal Tone: Firm Fundal Level: 1 Fingerbreadths Below Umbilicus Fundal Placement: Midline Lochia Amount: Scant Lochia Color: Rubra/Red Perineum Description: Intact, Minimal Bruising/Swelling Episiotomy/Laceration: None Bladder Status: Voiding Urinary Elimination: Voided - Exam General: Alert, Oriented Lungs: Normal Respiratory Effort Cardiovascular: Regular Rate, Regular Rhythm GI/Abdominal Exam: Normal Bowel Sounds, Soft Extremities: Pedal Edema (trace). No: Sola's Sign Skin: Warm, Dry, Intact Psy/Mental Status: Alert, Normal Affect, Normal Mood - Problem List & Annotations (1) Normal vaginal delivery SNOMED Code(s): 02843693, [id number] Code(s): O80 - ENCOUNTER FOR FULL-TERM UNCOMPLICATED DELIVERY Status: Acute Current Visit: No - Problem List Review Problem List Initiated/Reviewed/Updated: Yes - Assessment Assessment:: PPD 2 status post - Plan Plan:: Baby had to stay due to elevated bili. Patient continues to do well, resume discharge orders.
== END 2021-05-08 11:50 | disposition home or self-care (01) | DRG 807 ==
LOC: MW.OBCHECK 09:28 → MW.OB 09:30 → OBSVTOIN 16:50 → MW.OB 16:50
PROVIDERS: ADMIT Obstetrics & Gynecology; ATTEND Obstetrics & Gynecology
PROC: 10E0XZZ Delivery of Products of Conception, External Approach (ICD-10-PCS; principal; 2021-05-06)
PROC: 3E0R3BZ Introduction of Anesthetic Agent into Spinal Canal, Percutaneous Approach (ICD-10-PCS; 2021-05-06)
PROC: 00HU33Z Insertion of Infusion Device into Spinal Canal, Percutaneous Approach (ICD-10-PCS; 2021-05-06)
DX: O99.284 Endocrine, nutritional and metabolic diseases complicating childbirth (principal); Z37.0 Single live birth; E03.9 Hypothyroidism, unspecified; Z3A.39 39 weeks gestation of pregnancy; O99.824 Streptococcus B carrier state complicating childbirth; O69.81X0 Labor and delivery complicated by cord around neck, without compression, not applicable or unspecified; O76 Abnormality in fetal heart rate and rhythm complicating labor and delivery; Z20.822 Contact with and (suspected) exposure to COVID-19
CPT/HCPCS: 01967; 36415; 59025; 59409; 82803; 85014; 85018; 85027; 86592; 86850; 86900; 86901; A9270-GY; J0290; J2590; J2795; J7120; U0002

== ENCOUNTER 2021-10-29 10:56 | Emergency (ER) | payer MEDICAID ==
[2021-10-29] MEDS: HYDROmorphone 1 MG/ML Syringe IVPUSH ONE (11:18)
[2021-10-29] MEDS: Sodium Chloride 0.9% 1,000 ML IV ONE (11:19)
[2021-10-29] MEDS: Ondansetron 4 MG/2 ML SDV IVPUSH ONE (11:19)
[2021-10-29] MEDS: Sodium Chloride 0.9% 10 ML Syringe FLUSH PRN (11:22)
[2021-10-29] MEDS: Sodium Chloride 0.9% 2.5 ML Syringe FLUSH PRN (11:22)
[2021-10-29 11:50] LABS: BLOOD UREA NITROGEN,BUN 15 mg/dL (7.0-18.0); CARBON DIOXIDE,CO2 22.4 mmol/L (21.0-32.0); CHLORIDE,CL 102 mmol/L (98-107); GLUCOSE RANDOM 103 mg/dL (74-106); LIPASE 56 U/L (73-393); POTASSIUM,K 3.8 mmol/L (3.5-5.1); SODIUM,NA 137 mmol/L (136-145)
[2021-10-29] MEDS: Ketorolac 30 MG/ML SDV IVPUSH ONE (12:36)
[2021-10-29] MEDS: cefTRIAXone 1 GM in Sodium Chloride 0.9% 50 ML IV ONE (12:37)
== END 2021-10-29 15:11 | disposition home or self-care (01) ==
LOC: MW.ED 10:56
DX: N13.2 Hydronephrosis with renal and ureteral calculous obstruction (principal); N30.00 Acute cystitis without hematuria; E03.9 Hypothyroidism, unspecified; Z88.8 Allergy status to other drugs, medicaments and biological substances; Z79.899 Other long term (current) drug therapy
CPT/HCPCS: 36415; 74176; 80053; 81001; 83690; 84703; 85025; 87086; 96365; 96375; 99284; J0696; J1170; J1885; J2405; J3490; J7030

== ENCOUNTER 2023-01-07 14:41 | Inpatient (IN) | payer BC ==
[2023-01-07] MEDS ORDERED: Ondansetron 4 MG/2 ML SDV IVPUSH PRN (16:39)
[2023-01-07] MEDS ORDERED: Terbutaline 1 MG/ML SDV SUBCUT PRN (16:39)
[2023-01-07] MEDS ORDERED: Tranexamic Acid 1,000 MG in Sodium Chloride 0.9% 100 ML IV PRN (16:39)
[2023-01-07] MEDS ORDERED: Misoprostol 200 MCG Tab PO PRN (16:39)
[2023-01-07] MEDS ORDERED: Butorphanol 1 MG/ML SDV IVPUSH PRN (16:39)
[2023-01-07] MEDS ORDERED: Carboprost Tromethamine 250 MCG/1 mL Vial IM PRN (16:39)
[2023-01-07] MEDS ORDERED: Sodium Chloride 0.9% 2.5 ML Syringe FLUSH PRN (16:39)
[2023-01-07] MEDS ORDERED: Water For Irrigation,Sterile 1,000 ML Container IRR PRN (16:39)
[2023-01-07] MEDS ORDERED: Sodium Chloride 0.9% 10 ML Syringe FLUSH PRN (16:39)
[2023-01-07] MEDS ORDERED: Sodium Chloride 0.9% 20 ML SDV IV PRN (16:39)
[2023-01-07] MEDS ORDERED: Lidocaine 1% 50 ML MDV INJECT PRN (16:39)
[2023-01-07] MEDS ORDERED: Methylergonovine 0.2 MG/1 ML Amp IM PRN (16:39)
[2023-01-07] MEDS ORDERED: Oxytocin/0.9 % Sodium Chloride 30 UNIT/500 ML BAG IV SCH ×2 (16:45)
[2023-01-07] MEDS: Lactated Ringers 1,000 ML IV SCH ×2 (17:15→21:47)
[2023-01-07 18:16] LABS: HEMATOCRIT 31.2 % (36.0-46.0); HEMOGLOBIN 9.8 g/dL (12.0-16.0); MEAN CORPUSCULAR HEMOGLOBIN 23.4 pg (27.0-32.0); MEAN CORPUSCULAR HGB CONC 31.4 g/dL (31.0-37.0); MEAN CORPUSCULAR VOLUME 74.5 fL (80.0-98.0); MEAN PLATELET VOLUME 12.4 fL (7.40-12.00); RED BLOOD CELL COUNT 4.19 M/uL (4.30-5.90); WHITE BLOOD CELL COUNT,WBC 9.96 K/uL (4.0-11.0)
[2023-01-07] MEDS ORDERED: Acetaminophen 500 MG Tab PO PRN (20:45)
[2023-01-07] MEDS ORDERED: Misoprostol 25 MCG (1/4 of 100 MCG) Tab VAG ONE (22:43)
[2023-01-08] MEDS ORDERED: Misoprostol 25 MCG (1/4 of 100 MCG) Tab VAG PRN (03:00)
[2023-01-08] MEDS: Lactated Ringers 1,000 ML IV SCH (09:07)
[2023-01-08] MEDS ORDERED: Ropivacaine/PF 400 MG/200 ML PCA ONE (09:10)
[2023-01-08] MEDS ORDERED: Dexmedetomidine 200 MCG/2 ML SDV ONE (09:10)
[2023-01-08] MEDS ORDERED: Phenylephrine HCl 0.5 MG/5 ML AMP IVPUSH PRN (09:17)
[2023-01-08] MEDS ORDERED: ePHEDrine 50 MG/ML SDV IVPUSH PRN ×2 (09:17)
[2023-01-08] MEDS ORDERED: Ropivacaine HCl/PF 400 MG in Premix Bag 1 BAG EPIDUR SCH (09:30)
[2023-01-08] MEDS ORDERED: Tranexamic Acid 1,000 MG in Sodium Chloride 0.9% 100 ML IV PRN (14:54)
[2023-01-08] MEDS ORDERED: Docusate Sodium 100 MG Cap PO PRN (14:54)
[2023-01-08] MEDS ORDERED: Witch Hazel Medicated Pads 40/Jar TOP PRN (14:54)
[2023-01-08] MEDS ORDERED: Benzocaine/Menthol 20%-0.5% Spray 78 GM Cannister TOP PRN (14:54)
[2023-01-08] MEDS ORDERED: Ibuprofen 400 MG Tab PO PRN (14:54)
[2023-01-08] MEDS ORDERED: Lanolin 100% Cream 7 GM Tube TOP PRN (14:54)
[2023-01-08] MEDS ORDERED: Ibuprofen 800 MG Tab PO PRN (14:54)
[2023-01-08] MEDS ORDERED: Methylergonovine 0.2 MG/1 ML Amp IM PRN (14:54)
[2023-01-08] MEDS ORDERED: Bisacodyl 10 MG Supp RECTAL PRN (14:54)
[2023-01-08] MEDS ORDERED: Acetaminophen 500 MG Tab PO PRN (14:54)
[2023-01-08 15:12] LABS: PH,UMBILICAL ARTERIAL 7.162 (7.18-7.38); PH,UMBILICAL VENOUS 7.264 (7.25-7.45)
[2023-01-08] MEDS: Acetaminophen 500 MG Tab PO PRN (19:18)
[2023-01-09 05:54] LABS: HEMATOCRIT 27.3 % (36.0-46.0); HEMOGLOBIN 8.6 g/dL (12.0-16.0)
[2023-01-09] MEDS ORDERED: Non-Formulary Medication 1 Each (Levothyroxine 175 MCG Tablet) PO SCH (07:30)
[2023-01-09] MEDS ORDERED: Prenatal Multivitamin with Calcium/Folic Acid/Iron Tab PO SCH (09:00)
[2023-01-09] MEDS: Acetaminophen 500 MG Tab PO PRN (13:22)
== END 2023-01-09 18:35 | disposition home or self-care (01) | DRG 560 ==
LOC: MW.OB 14:41 → OBSVTOIN 01-08 14:41 → MW.OB 01-08 19:37
PROVIDERS: ADMIT Obstetrics & Gynecology; ATTEND Obstetrics & Gynecology
PROC: 10E0XZZ Delivery of Products of Conception, External Approach (ICD-10-PCS; principal; 2023-01-08)
PROC: 10907ZC Drainage of Amniotic Fluid, Therapeutic from Products of Conception, Via Natural or Artificial Opening (ICD-10-PCS; 2023-01-08)
PROC: 3E0R3BZ Introduction of Anesthetic Agent into Spinal Canal, Percutaneous Approach (ICD-10-PCS; 2023-01-08)
PROC: 00HU33Z Insertion of Infusion Device into Spinal Canal, Percutaneous Approach (ICD-10-PCS; 2023-01-08)
PROC: 3E033VJ Introduction of Other Hormone into Peripheral Vein, Percutaneous Approach (ICD-10-PCS; 2023-01-08)
PROC: 3E0P7VZ Introduction of Hormone into Female Reproductive, Via Natural or Artificial Opening (ICD-10-PCS; 2023-01-08)
DX: O99.214 Obesity complicating childbirth (principal); Z37.0 Single live birth; O99.284 Endocrine, nutritional and metabolic diseases complicating childbirth; E03.9 Hypothyroidism, unspecified; Z90.49 Acquired absence of other specified parts of digestive tract; E66.01 Morbid (severe) obesity due to excess calories; Z3A.39 39 weeks gestation of pregnancy
CPT/HCPCS: 36415; 51702; 59025; 59409; 82803; 85014; 85018; 85027; 86592; 86850; 86900; 86901; A9270-GY; J2590; J2795; J3490; J7120

== ENCOUNTER 2024-06-02 18:58 | Emergency (ER) | payer SELFPAY ==
[2024-06-02 19:58] LABS: BASOPHILS ABSOLUTE AUTO 0.01 K/uL (0.00-0.20); BASOPHILS PERCENT AUTO 0.2 % (0.0-1.0); EOSINOPHILS ABSOLUTE AUTO 0.03 K/uL (0.00-0.45); EOSINOPHILS PERCENT AUTO 0.6 % (0.0-6.0); HEMATOCRIT 35.8 % (37.0-47.0); HEMOGLOBIN 11.6 g/dL (12.0-16.0); IMMATURE GRAN ABSOLUTE AUTO 0.01 K/uL (0.00-0.05); IMMATURE GRAN PERCENT AUTO 0.2 % (0.0-0.4); LYMPHOCYTES ABSOLUTE AUTO 1.76 K/uL (1.00-4.80); LYMPHOCYTES PERCENT AUTO 35.6 % (24.0-44.0); MEAN CORPUSCULAR HEMOGLOBIN 23.6 pg (28.0-32.0); MEAN CORPUSCULAR HGB CONC 32.4 g/dL (32.0-36.0); MEAN CORPUSCULAR VOLUME 72.9 fL (83.0-99.0); MEAN PLATELET VOLUME 10.5 fL (9.4-12.3); MONOCYTES ABSOLUTE AUTO 0.32 K/uL (0.00-0.80); MONOCYTES PERCENT AUTO 6.5 % (0.0-8.0); NEUTROPHILS ABSOLUTE AUTO 2.82 K/uL (1.80-7.70); NEUTROPHILS PERCENT AUTO 56.9 % (41.0-71.0); PLATELET COUNT,PLT 250 K/uL (150-400); RED BLOOD CELL COUNT 4.91 M/uL (4.10-5.30); WHITE BLOOD CELL COUNT,WBC 4.95 K/uL (3.9-11.3)
[2024-06-02 19:59] LABS: APPEARANCE,URINE SLT CLOUDY; BILIRUBIN,URINE NEGATIVE (NEGATIVE); COLOR,URINE YELLOW; GLUCOSE,URINE NEGATIVE (NEGATIVE); KETONES,URINE NEGATIVE (NEGATIVE); LEUKOCYTE ESTERASE,URINE NEGATIVE (NEGATIVE); NITRITE,URINE NEGATIVE (NEGATIVE); OCCULT BLOOD,URINE MODERATE (NEGATIVE); PROTEIN,URINE 30 mg/dL (NEGATIVE); UROBILINOGEN,URINE 0.2 EU/dL (<2.0)
[2024-06-02] MEDS: Sodium Chloride 0.9% 1,000 ML IV ONE (20:11)
[2024-06-02] MEDS: Ondansetron 4 MG Tab.DIS PO ONE (20:11)
[2024-06-02 20:12] LABS: BACTERIA,URINE FEW (NEGATIVE); EPITHELIAL CELLS,URINE MODERATE (NONE-FEW); MUCUS,URINE LIGHT (NONE-MOD); WBC,URINE 0-2 (0-5/HPF)
[2024-06-02] MEDS: Alum Hydrox/Mag Hydrox/Simeth 15 ML, Metoclopramide 5 MG, Lidocaine 2% 5 ML PO ONE (20:22)
[2024-06-02 20:23] LABS: A/G RATIO 0.8 (0.9-1.6); ALBUMIN 3.5 g/dL (3.4-5.0); BILIRUBIN TOTAL 0.2 mg/dL (0.2-1.0); CALCIUM 8.7 mg/dL (8.5-10.1); CARBON DIOXIDE,CO2 25.9 mmol/L (21.0-32.0); CREATININE 0.6 mg/dL (0.6-1.0); EST CRCL DRUG DOSING (CG) 115.47 mL/min; POTASSIUM,K 3.7 mmol/L (3.5-5.1); PROTEIN TOTAL,TP 7.7 g/dL (6.4-8.2)
== END 2024-06-02 21:20 | disposition home or self-care (01) ==
LOC: MW.ED 18:58
DX: K52.9 Noninfective gastroenteritis and colitis, unspecified (principal); E03.9 Hypothyroidism, unspecified; Z90.49 Acquired absence of other specified parts of digestive tract; Z88.8 Allergy status to other drugs, medicaments and biological substances; Z79.890 Hormone replacement therapy; Z79.899 Other long term (current) drug therapy; Z75.8 Other problems related to medical facilities and other health care
CPT/HCPCS: 36415; 80053; 81001; 83690; 84703; 85025; 87428; 87651; 96360; 99284; A9270; J7030